=== PATIENT | male | born 1935 | race Caucasian/White ===

== ENCOUNTER 2020-04-14 15:36 | Inpatient (IN) | payer MEDICARE, SELFPAY ==
[2020-04-14] VITALS (8 sets, daily range): BP systolic 111–171; BP diastolic 57–104; PULSE 91–123; RESP 16–29; TEMP 36.3–36.5; O2SAT 95–100; BMI 26.4
--- NOTE | 2020-04-14 15:53 | XRR_ITS ---
PROCEDURE INFORMATION: Exam: XR Chest, 1 View Exam date and time: 04/14/2020 4:08 PM Age: 84 years old Clinical indication: Shortness of breath and other: Reduced breath sounds; Patient HX: SOB, abd pain TECHNIQUE: Imaging protocol: XR of the chest Views: 1 view. COMPARISON: CR Chest 1 [place] [id number] 11/08/2018 6:09 PM FINDINGS: Lungs: Granulomas at the left lung base. [place] granulomas in the left hilum. No focal airspace consolidation. Moderate emphysematous changes of the lungs. Pleural spaces: Unremarkable. No pleural effusion. No pneumothorax. Heart/Mediastinum: Prior CABG. Bones/joints: Bones are demineralized. XR/XR chest 1V portable [id number] IMPRESSION: 1. Negative for acute pulmonary disease. 2. No significant change from prior on 11/08/2018.
--- NOTE | 2020-04-14 15:56 | ECG_ITS ---
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 Measurements Intervals [place] Rate: 108 P: OR: QRS: 28 QRSD: 93 T: 90 QT: 394 QTc: 528 Interpretive Statements ATRIAL FIBRILLATION WITH RAPID VENTRICULAR RESPONSE INCOMPLETE RIGHT BUNDLE BRANCH BLOCK [90+ ms QRS DURATION, TERMINAL R IN V1/V2, 40+ ms S IN I/aVL/V4/V5/V6] Compared to ECG 11/09/2018 00:02:16 Incomplete right bundle-branch block now present Sinus rhythm no longer present T-wave abnormality still present Electronically Signed On 04-14-2020 17:52:44 CRUSHER OPERATOR by Aleksandr Dela Cruz M.D. [email or web address] [id number]
[2020-04-14 16:06] LABS: Basophils % 0.2 %; Hematocrit 34.2 % (42.0-52.0); Hemoglobin 11.1 g/dL (11.7-16.6); Lymphocytes # 1.2 10^3/uL (0.8-4.8); Lymphocytes % 9.5 %; Mean Corpuscular HGB Conc 32.5 g/dL (30.0-36.0); Mean Corpuscular Hemoglobin 29.5 pg (28.0-34.0); Mean Platelet Volume 9.9 fL (7.4-10.4); Monocytes # 0.7 10^3/uL (0.2-0.9); Neutrophils # 10.19 10^3/uL (1.8-7.7); Neutrophils % 83.2 %; Nucleated Red Blood Cells % 0 %; Platelet Count 317 10^3/cmm (130-400); Red Blood Count 3.76 10^6/uL (4.1-5.3); Red Cell Distribution Width 13.1 % (12.1-15.1); White Blood Count 12.2 10^3/uL (4.0-10.0)
[2020-04-14 16:10] LABS: ABG PCO2 26.4 mmHg (35-45); ABG PH Result 7.47 (7.35-7.45); Arterial Blood Gas Hematocrit 32.7 % (42-52); Base Excess ABG -3.7 mmol/L (-2.0-2.0); Blood Gas Allen Test Pos; Blood Gas Operator Identificat ED; Blood Gas Sample Site Radial, right; Blood Gas Sample Type Arterial; Oxygen Device ROOM AIR; PO2 ABG 94.4 mmHg (80.0-100.0)
[2020-04-14 16:17] LABS: INR 1.17 (0.8-1.2)
[2020-04-14 16:31] LABS: Troponin(5th) Baseline 56 ng/L (0-15)
[2020-04-14 16:41] LABS: Alanine Aminotransferase 19 U/L (0-41); Alkaline Phosphatase 160 IU/L (40-130); Anion Gap 22.5 (5-19); Aspartate Amino Transferase 18 U/L (0-40); Blood Urea Nitrogen 26 mg/dL (8-23); Calcium 8.9 mg/dL (8.5-10.5); Carbon Dioxide 19 mmol/L (22-29); Chloride 92 mmol/L (98-107); Globulin 4.6 g/dL (1.3-4.6); Glucose 484 mg/dL (65-115); Lipase 11 U/L (13-60); NT Pro B Type Natriuretic Pept 1238 pg/mL (0-450); Osmolality Calculated 292 mOsm/kg (285-295); Potassium 5.5 mmol/L (3.5-5.1); Sodium 128 mmol/L (136-145); Total Bilirubin 0.5 mg/dL (0.15-1.2); Total Protein 7.6 g/dL (6.6-8.7)
[2020-04-14] MEDS: piperacillin-tazobactam 3.375 GM in sodium chloride 0.9% (plus) 50 ML IV (16:44)
[2020-04-14] MEDS: vancomycin 1,000 MG in sodium chloride 0.9% 250 ML 250 MG IV (16:44)
[2020-04-14] MEDS: sodium chloride 0.9% 1,000 ML 999 ML IV (16:45)
[2020-04-14] MEDS: insulin regular-human 100 units/1 mL 10 UNIT IVP (16:45)
--- NOTE | 2020-04-14 16:46 | CTR_ITS ---
PROCEDURE INFORMATION: Exam: CT Abdomen And Pelvis With Contrast Exam date and time: 04/14/2020 4:53 PM Age: 84 years old Clinical indication: Constipation; Prior surgery; Additional info: Abdominal pain TECHNIQUE: Imaging protocol: Computed tomography of the abdomen and pelvis with contrast. Radiation optimization: All CT scans at this facility use at least one of these dose optimization techniques: automated exposure control; mA and/or kV adjustment per patient size (includes targeted exams where dose is matched to clinical indication); or iterative reconstruction. Contrast material: VISI 320; Contrast volume: 95 ml; Contrast route: INTRAVENOUS (IV); COMPARISON: US Abdomen* [id number] 04/29/2017 8:40 AM RADIATION DOSE METRICS: Total DLP (mGy-cm): 605.18 FINDINGS: Lungs: Densely calcified granuloma in the anterolateral left lower lobe. Lung bases otherwise clear. Liver: Normal. No mass. Gallbladder and bile ducts: Cholecystectomy. Nondilated biliary system. Pancreas: Atrophy a pancreatic parenchyma. No focal lesion. Spleen: Granulomas in the spleen. No splenomegaly. Adrenal glands: Normal. No mass. Kidneys and ureters: Atrophic renal parenchyma. No focal lesion. No hydronephrosis. No renal stones. Stomach and bowel: Moderate fecal volume. No focal inflammation of bowel loops or abdominal mesentery. No bowel wall pneumatosis. Appendix: No evidence of appendicitis. Intraperitoneal space: Negative for intraperitoneal fluid collection. Negative for pneumoperitoneum. Vasculature: Scattered [id number] severity calcified atherosclerotic plaque of arterial system. No aneurysm. No arterial occlusion. No active bleeding. Lymph nodes: Unremarkable. No enlarged lymph nodes. Urinary bladder: No thickening of the bladder wall. Reproductive: Mild to moderate prostate gland hypertrophy. Bones/joints: Median sternotomy noted. Arthritis in the lumbar spine. No acute fractures. No aggressive bone lesion. Osseous alignment is unremarkable. Soft tissues: Lumbar paraspinal muscles are symmetric. Ventral abdominal wall intact. CT/CT abdomen pelvis w con* [id number] IMPRESSION: No convincing CT scan evidence of acute pathology in the abdomen or pelvis. Radiation Dose CTDIVOL = (mGy): DLP = 605.18 (mGy-cm)
[2020-04-14 16:59] LABS: Lactate (Lactic Acid level) 4.3 mmol/L (0.5-2.2)
[2020-04-14] MEDS: iodixanol 320 mg/mL 100mL Btl IV (17:13)
--- NOTE | 2020-04-14 17:13 | XRR_ITS ---
PROCEDURE INFORMATION: Exam: XR Right Foot Exam date and time: 04/14/2020 5:30 PM Age: 84 years old Clinical indication: Pain; Foot; Right; Additional info: Osteomyelitis? TECHNIQUE: Imaging protocol: XR Right foot. Views: 1 or 2 views. COMPARISON: CR Foot 3 views, RIGHT* [id number] 10/08/2016 1:07 PM FINDINGS: Bones/joints: There is either erosion or most likely postsurgical change in the distal aspect of the 1st metatarsal bone. Amputation of the 2nd digit is apparent as well. Bones are diffusely demineralized. No acute fractures. Joint space alignments are intact. Mild osteophytic spurring between tarsal bones. Soft tissues: Soft tissues are thickened are swollen over the distal aspect of the forefoot medially. Soft tissue calcifications along the course of the plantar fascia aponeurosis. Other findings: Scattered arterial wall calcification. XR/XR foot RT 2V [id number] IMPRESSION: There is no definitive evidence of osteomyelitis in the right foot, however given the substantial irregularity of the distal margin of the remaining 1st metatarsal the diagnosis is difficult to confidently exclude. MRI would provide greater sensitivity.
[2020-04-14 17:18] LABS: Troponin 5 2HR 48.54 ng/L (0-15)
[2020-04-14 17:20] LABS: Troponin 5 2HR Delta -7.46 ABS# (0-10)
--- NOTE | 2020-04-14 17:56 | ECG_ITS ---
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 Measurements Intervals [place] Rate: 90 P: [place]: QRS: 21 QRSD: 92 T: -68 QT: 385 QTc: 473 Interpretive Statements ATRIAL FIBRILLATION INCOMPLETE RIGHT BUNDLE BRANCH BLOCK [90+ ms QRS DURATION, TERMINAL R IN V1/V2, 40+ ms S IN I/aVL/V4/V5/V6] MODERATE T-WAVE ABNORMALITY, CONSIDER INFERIOR ISCHEMIA [-0.1+ mV T WAVE IN II/aVF] Compared to ECG 04/14/2020 16:11:49 T-wave abnormality now present Possible ischemia now present Electronically Signed On 04-14-2020 18:39:25 BENDER HELPER by Aleksandr Dela Cruz M.D. [id number]
[2020-04-14] MEDS: morphine 4 mg/mL SDV 1 mL IVP (18:24)
--- NOTE | 2020-04-14 21:05 | W.ED.ABDPA2 ---
HPI - Abdominal Pain General: Chief Complaint: Abdominal Pain Stated Complaint: ABDOMINAL PAIN/ CONSTIPATION Time Seen by Provider: 04/14/20 15:48 History of Present Illness: HPI narrative: The patient is an 84-year-old male with past medical history sacral and right foot ulcers. He was brought to the ER for abdominal pain and thought to have some sort of an obstruction as he has not had a bowel movement in 5 days and today he had 2 small nuggets past. The patient is alert and able to answer most questions. He does have a right great toe amputation with ulcer and purulent discharge coming out of it. He was recently discharged from another hospital after an inpatient treatment for the foot infection. MD elicited complaint: abdominal pain Pertinent past history: constipation Onset (ago): day(s) (5) Associated Symptoms: Denies diarrhea, nausea and vomiting Review of Systems General: Reports: 10 or more systems reviewed and unremarkable except in HPI and below Const: Denies: fatigue Eyes: Denies: change in vision, blurry vision or eye redness ENMT: Denies: throat pain, swelling of lips/tongue, ear or mastoid pain or nasal congestion Card: Denies: chest pain, palpitations, irregular heart rhythm, edema, dyspnea on exertion or orthopnea Resp: Denies: dyspnea, productive cough or non-productive cough GI: Reports: abdominal pain; Denies: nausea, vomiting or diarrhea : Denies: flank pain, urinary frequency or urinary urgency Musc: Reports: extremity pain (Right great toe infection with drainage); Denies: neck pain, back pain, joint pain, joint redness, limited range of motion or muscle weakness Skin/Breast: Denies: rash, pruritus, erythema, skin pain or skin tenderness Neuro: Denies: headache(s), numbness in extremities, weakness in extremities, sensory changes, difficulty walking, dizziness, confusion or Slurred speech present Psych: Denies: anxiety or depression Endo: Denies: polyuria All/Imm: Denies: urticaria, throat swelling or tongue swelling PFSH ED PFSH: Medical History (Updated 04/15/20 @ 00:09 by Jabier Allen MD) Blind left eye BPH (benign prostatic hyperplasia) CAD (coronary artery disease) Chronic kidney disease Diabetes mellitus, type II Frequent falls History of stroke Hypertension Osteoarthritis Peripheral arterial disease Surgical History (Updated 04/14/20 @ 22:16 by Galina Hidalgo MD) 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 History of appendectomy History of cholecystectomy History of eye surgery History of partial ray amputation of second toe of right foot unknown if partial or complete, done in [place] possibly sometime recently though date unknown as of 04/14/20 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, Dr De Paz Family History (Updated 04/14/20 @ 22:17 by Galina Hidalgo MD) Other CAD (coronary artery disease) Diabetes Social History (Updated 04/14/20 @ 22:17 by Galina Hidalgo MD) Smoking and tobacco status: never smoked Alcohol intake: never Substance/Drug Use: never Household members: spouse and children Marital status: Physical Exam Const: COMMON NORMALS: no acute distress, average body habitus, patient oriented x3, no limitations, healthy appearing, alert and well nourished GENERAL APPEARANCE: cooperative, comfortable, well kempt and well developed ORIENTATION/CONSCIOUSNESS: Yes awake, Yes oriented to person, Yes oriented to place and Yes oriented to time HENMT: COMMON NORMALS: normocephalic, external ears normal and Normal external nose present HEAD & SCALP: normal to inspection and normocephalic NOSE: Normal external nose present EXTERNAL EAR: Yes external ears normal MOUTH: Normal oral and palatal mucosa present THROAT: posterior oropharynx normal Eye: COMMON NORMALS: Equal, round and reactive pupils present and EOMs intact bilaterally GENERAL EYE: appearance normal, both eyes and all related structures PUPIL: Yes Equal, round and reactive pupils present Neck/C-Spine: COMMON NORMALS: full ROM, no lymphadenopathy, no meningeal signs and no JVD GENERAL: Yes normal visual inspection Lymph: LYMPHATIC: no lymphadenopathy noted Chest: COMMONS NORMALS: normal inspection of the chest and normal palpation of entire chest wall Resp: COMMON NORMALS: normal respiratory effort, No retractions, No use of accessory muscles, clear to auscultation bilaterally and percussion normal EFFORT & INSPECTION: Yes able to speak in complete sentences AUSCULTATION: clear to auscultation bilaterally PERCUSSION: percussion normal Cardio: COMMON NORMALS: no JVD, regular rate, regular rhythm, S1 normal heart sound present, S2 normal heart sound present and Peripheral pulses 2+ throughout RATE: regular rate RHYTHM: regular rhythm HEART SOUNDS: S1 normal heart sound present and S2 normal heart sound present PERIPHERAL PULSES: Peripheral pulses 2+ throughout GI: COMMON NORMALS: Normal to inspection, nondistended, normoactive bowel sounds present, Soft to palpation, non-tender and no masses INSPECTION: Yes normal to inspection PALPATION: Yes Soft to palpation and Yes Tenderness to palpation present (GI) (Diffuse. No rebound tenderness) : COMMON NORMALS: Yes no CVA tenderness BLADDER/KIDNEY EXAM: Yes no CVA tenderness Back/Pelvis: COMMON NORMALS: no CVA tenderness, thoracic and lumbar spine normal to inspection, no thoracic nor lumbar tenderness and thoraco-lumbar ROM normal Extremity: COMMON NORMALS: full ROM, capillary refill normal, no joint enlargement and no pedal edema NARRATIVE EXTREMITY EXAM: Right great toe amputation. In between the cleft of first and second toe there is an ulcer there with purulent discharge and it is tender to the area. GENERAL: Yes normal exam except as noted Neuro: COMMON NORMALS: patient oriented x3, CN's II-XII intact bilaterally, moves all extremities, no focal motor deficits, no sensory deficits noted and gait normal SENSORIUM/ORIENTATION: Yes alert, Yes oriented to person, Yes oriented to place and Yes oriented to time MENINGEAL SIGNS: Yes no meningeal signs Psych: COMMON NORMALS: mental status grossly normal, Normal thought process present, cooperative, normal affect and speech normal APPEARANCE: Yes well kempt ATTITUDE: Yes calm SPEECH: Yes normal speech THOUGHT PROCESS: Normal thought process present Skin: COMMON NORMALS: no rashes or lesions noted GENERAL SKIN EXAM: no rashes or lesions noted Course Vital Signs: Vital signs: Vital Signs Temperature 97.6 F 04/14/20 23:50 Pulse Rate 111 H 04/14/20 23:50 Respiratory Rate 18 04/14/20 23:50 Blood Pressure 168/81 04/14/20 23:50 Pulse Oximetry 97 04/14/20 23:50 MDM - Abdominal Pain MDM Narrative: Medical decision making narrative: The patient came in with abdominal pain. Abdominal pelvic CT is normal but he does have other abnormalities. White count 12.2, lactic acid 4.3. He is likely septic from the purulent discharge ulcer on his right great toe cleft. He had recently been treated for this and discharged to another facility. He also had high glucose during his stay and was given insulin and fluids for that with improvement of his glucose. He also has mild hyperkalemia which the insulin should assist in helping. Also chronic kidney disease. I discussed with the hospitalist who accepts him to the floor. He was given Vanco and Zosyn in the ER. Lab Data: Labs: Lab Results 04/14/20 04/14/20 04/14/20 Range/Units 15:08 15:08 15:08 WBC 12.2 H (4.0-10.0) 10^3/ uL RBC 3.76 L (4.1-5.3) 10^6/u L Hgb 11.1 L (11.7-16.6) g/dL Hct 34.2 L (42.0-52.0) % MCV 91.0 (80-94) fL MCH 29.5 (28.0-34.0) pg MCHC 32.5 (30.0-36.0) g/dL RDW 13.1 (12.1-15.1) % Plt Count 317 (130-400) 10^3/c mm MPV 9.9 (7.4-10.4) fL Neut % (Auto) 83.2 % Lymph % (Auto) 9.5 % [place] % (Auto) 6.0 % Eos % (Auto) 0.0 % Baso % (Auto) 0.2 % Neut # (Auto) 10.19 H (1.8-7.7) 10^3/u L Lymph # (Auto) 1.2 (0.8-4.8) 10^3/u L [place] # (Auto) 0.7 (0.2-0.9) 10^3/u L Eos # (Auto) 0.0 (0.0-0.8) 10^3/u L Baso # (Auto) 0.0 (0.0-0.1) 10^3/u L Nucleated RBC % (a uto) 0 % Nucleated RBCs # 0.0 /100WBC PT 15.30 H (12.1-14.9) SECO NDS INR 1.17 (0.8-1.2) Specimen Type Sample Site ABG pH (7.35-7.45) ABG pCO2 (35-45) mmHg ABG pO2 (80.0-100.0) mmH g ABG HCO3 (22-26) mmol/L ABG Base Excess (-2.0-2.0) mmol/ L Manuel Test Hematocrit (42-52) % O2 Delivery Device FiO2 % Calender Worker Helper ID Sodium 128 L (136-145) mmol/L Potassium 5.5 H (3.5-5.1) mmol/L Chloride 92 L (98-107) mmol/L Carbon Dioxide 19 L (22-29) mmol/L Anion Gap 22.5 H (5-19) BUN 26 H (8-23) mg/dL Creatinine 1.4 H (0.7-1.2) mg/dL GFR Calculation Not Reportable Glucose 484 H (65-115) mg/dL Calculated Osmolal ity 292 (285-295) mOsm/k g Lactate (0.5-2.2) mmol/L Calcium 8.9 (8.5-10.5) mg/dL Total Bilirubin 0.5 (0.15-1.2) mg/dL AST 18 (0-40) U/L ALT 19 (0-41) U/L Alkaline Phosphata se 160 H (40-130) IU/L Troponin T Baselin e (0-15) ng/L Troponin T 120 Min ho-chunk (0-15) ng/L Delta Troponin T (0-10) ABS# NT-Pro-B Natriuret Pep 1238 H (0-450) pg/mL Total Protein 7.6 (6.6-8.7) g/dL Albumin 3.0 L (3.5-5.2) g/dL Globulin 4.6 (1.3-4.6) g/dL Lipase 11 L (13-60) U/L 04/14/20 04/14/20 04/14/20 Range/Units 15:08 16:00 16:25 WBC (4.0-10.0) 10^3/ uL RBC (4.1-5.3) 10^6/u L Hgb (11.7-16.6) g/dL Hct (42.0-52.0) % MCV (80-94) fL MCH (28.0-34.0) pg MCHC (30.0-36.0) g/dL RDW (12.1-15.1) % Plt Count (130-400) 10^3/c mm MPV (7.4-10.4) fL Neut % (Auto) % Lymph % (Auto) % [place] % (Auto) % Eos % (Auto) % Baso % (Auto) % Neut # (Auto) (1.8-7.7) 10^3/u L Lymph # (Auto) (0.8-4.8) 10^3/u L [place] # (Auto) (0.2-0.9) 10^3/u L Eos # (Auto) (0.0-0.8) 10^3/u L Baso # (Auto) (0.0-0.1) 10^3/u L Nucleated RBC % (a uto) % Nucleated RBCs # /100WBC PT (12.1-14.9) SECO NDS INR (0.8-1.2) Specimen Type Arterial Sample Site Radial, right ABG pH 7.47 H (7.35-7.45) ABG pCO2 26.4 L (35-45) mmHg ABG pO2 94.4 (80.0-100.0) mmH g ABG HCO3 19.0 L (22-26) mmol/L ABG Base Excess -3.7 L (-2.0-2.0) mmol/ L Manuel Test Pos Hematocrit 32.7 L (42-52) % O2 Delivery Device Room air FiO2 21.0 % Calender Worker Helper ID Ed Sodium (136-145) mmol/L Potassium (3.5-5.1) mmol/L Chloride (98-107) mmol/L Carbon Dioxide (22-29) mmol/L Anion Gap (5-19) BUN (8-23) mg/dL Creatinine (0.7-1.2) mg/dL GFR Calculation Glucose (65-115) mg/dL Calculated Osmolal ity (285-295) mOsm/k g Lactate 4.3 H* (0.5-2.2) mmol/L Calcium (8.5-10.5) mg/dL Total Bilirubin (0.15-1.2) mg/dL AST (0-40) U/L ALT (0-41) U/L Alkaline Phosphata se (40-130) IU/L Troponin T Baselin e 56 H (0-15) ng/L Troponin T 120 Min ho-chunk (0-15) ng/L Delta Troponin T (0-10) ABS# NT-Pro-B Natriuret Pep (0-450) pg/mL Total Protein (6.6-8.7) g/dL Albumin (3.5-5.2) g/dL Globulin (1.3-4.6) g/dL Lipase (13-60) U/L 04/14/20 Range/Units 16:55 WBC (4.0-10.0) 10^3/ uL RBC (4.1-5.3) 10^6/u L Hgb (11.7-16.6) g/dL Hct (42.0-52.0) % MCV (80-94) fL MCH (28.0-34.0) pg MCHC (30.0-36.0) g/dL RDW (12.1-15.1) % Plt Count (130-400) 10^3/c mm MPV (7.4-10.4) fL Neut % (Auto) % Lymph % (Auto) % [place] % (Auto) % Eos % (Auto) % Baso % (Auto) % Neut # (Auto) (1.8-7.7) 10^3/u L Lymph # (Auto) (0.8-4.8) 10^3/u L [place] # (Auto) (0.2-0.9) 10^3/u L Eos # (Auto) (0.0-0.8) 10^3/u L Baso # (Auto) (0.0-0.1) 10^3/u L Nucleated RBC % (a uto) % Nucleated RBCs # /100WBC PT (12.1-14.9) SECO NDS INR (0.8-1.2) Specimen Type Sample Site ABG pH (7.35-7.45) ABG pCO2 (35-45) mmHg ABG pO2 (80.0-100.0) mmH g ABG HCO3 (22-26) mmol/L ABG Base Excess (-2.0-2.0) mmol/ L Manuel Test Hematocrit (42-52) % O2 Delivery Device FiO2 % Calender Worker Helper ID Sodium (136-145) mmol/L Potassium (3.5-5.1) mmol/L Chloride (98-107) mmol/L Carbon Dioxide (22-29) mmol/L Anion Gap (5-19) BUN (8-23) mg/dL Creatinine (0.7-1.2) mg/dL GFR Calculation Glucose (65-115) mg/dL Calculated Osmolal ity (285-295) mOsm/k g Lactate (0.5-2.2) mmol/L Calcium (8.5-10.5) mg/dL Total Bilirubin (0.15-1.2) mg/dL AST (0-40) U/L ALT (0-41) U/L Alkaline Phosphata se (40-130) IU/L Troponin T Baselin e (0-15) ng/L Troponin T 120 Min ho-chunk 48.54 H (0-15) ng/L Delta Troponin T -7.46 L (0-10) ABS# NT-Pro-B Natriuret Pep (0-450) pg/mL Total Protein (6.6-8.7) g/dL Albumin (3.5-5.2) g/dL Globulin (1.3-4.6) g/dL Lipase (13-60) U/L Discharge Plan Discharge Patient Disposition: Admitted As Inpatient Admit Provider: Galina Hidalgo Clinical Impression: Sepsis, Diabetes mellitus, type II, Right foot ulcer, Acute hyperglycemia Condition: Stable Coding Level of Care Code ED Parts Data Writer for Cliff Noyola
--- NOTE | 2020-04-14 21:40 | PM.HP ---
Providers/Chief Complaint Admitting Physician: Galina Hidalgo MD Primary Care Provider: Carlos Nagy MD Chief Complaint: ABDOMINAL PAIN/ CONSTIPATION History of Present Illness Frank Espinal is a 84 year old male presenting with abdominal pain and constipation. He describes recently being hospitalized I think at [facility] in [place]. Sounds like he had amputation of his second toe. Looking at the wound it actually does not look that recent but it certainly could be. It is difficult to get timeframes of events from him though he does seem to recall details. He describes having issues with constipation then while in the hospital that was difficult to manage. He states he has not had a bowel movement since he got home from the hospital. His family has given him 3 enemas and he has been taking some oral laxatives as well. He has had increased abdominal discomfort and some episodes of vomiting related to this. He has had some pain in his foot but states it is to be expected. He has known peripheral arterial disease. He had had a previous right great toe amputation for diabetic foot ulcer. He does not see well so he cannot tell me if current findings on the foot or how they have been. He had work-up in the emergency room revealing a white count of 12,000, hyperglycemia in a patient with known diabetes, has an elevated lactic acid at 4.3. He also had an elevated BNP. Not hypotensive nor tachycardic. He denied any fevers. Chest x-ray as well as CT of the abdomen and pelvis not show any acute abnormalities. Imaging of the right foot showed findings of inflammation but no evidence of osteomyelitis. He received some antibiotics for presumptive infection in the right foot. He also received IV fluids and 1 dose of pain medication. He is being admitted for further evaluation and treatment. Medical records have been requested from [facility] but not obtained thus far. Is that his primary care provider is who ever took over for Dr. Nagy. 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) ENMT: Reports: dry mouth; Denies: throat pain, odynophagia, oral sores or nasal congestion Card: Denies: chest pain, palpitations, edema or orthopnea Resp: Denies: dyspnea, productive cough or non-productive cough GI: Reports: abdominal pain, nausea, vomiting and constipation; Denies: diarrhea : Reports: urinary hesitancy and difficulty starting urination Musc: Reports: extremity pain (Right foot) and other (Arthralgias); Denies: extremity swelling Skin/Breast: Reports: lesions (Right foot); Denies: rash or pruritus Neuro: Reports: numbness in extremities, weakness in extremities, difficulty walking and frequent falls (Had a fall in last hospital); Denies: headache(s) Psych: Denies: anxiety or depression Shane/Lymph: Denies: easy bruising or easy bleeding Medications/Allergies Home Medications Medication Instructions Recorded Confirmed Last Taken Type amlodipine 10 mg PO DAILY 04/14/20 04/14/20 Unknown History insulin regular human [Humulin R 30 unit SUBCUT BID 04/14/20 04/14/20 Unknown History Regular U-100 Insuln] losartan 25 mg PO DAILY 04/14/20 04/14/20 Unknown History tamsulosin 0.4 mg PO BID 04/14/20 04/14/20 Unknown History Allergies Allergy/AdvReac Type Severity Reaction Status Date / Time pneumococcal vaccine Allergy ALGY-Hives Verified 04/14/20 15:55 PFSH Acute PFSH: Medical History (Updated 04/15/20 @ 07:28 by Galina Hidalgo MD) Blind left eye BPH (benign prostatic hyperplasia) CAD (coronary artery disease) Chronic kidney disease Diabetes mellitus, type II Frequent falls History of stroke Hypertension Osteoarthritis Peripheral arterial disease Surgical History (Updated 04/14/20 @ 22:16 by Galina Hidalgo MD) 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 History of appendectomy History of cholecystectomy History of eye surgery History of partial ray amputation of second toe of right foot unknown if partial or complete, done in [place] possibly sometime recently though date unknown as of 04/14/20 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, Dr De Paz Family History (Updated 04/14/20 @ 22:17 by Galina Hidalgo MD) Other CAD (coronary artery disease) Diabetes Social History (Updated 04/14/20 @ 22:17 by Galina Hidalgo MD) Smoking and tobacco status: never smoked Alcohol intake: never Substance/Drug Use: never Household members: spouse and children Marital status: Vitals/I&O/Wt Last Vital Signs Temp 97.7 F 04/14/20 20:21 Pulse 123 H 04/14/20 20:21 Resp 16 04/14/20 20:21 BP 111/64 04/14/20 20:21 Pulse Ox 99 04/14/20 20:21 04/14/20 04/14/20 04/14/20 06:59 14:59 22:59 Intake Total 1300 / 1300 Balance 1300 / 1300 Weight last 48 hrs Weight 86.183 kg Physical Exam Const: OTHER: Alert, oriented to person, generally to place and situation although gets confused with whether he is at [facility] or [facility] is to time references, cooperative, pleasant HENMT: OTHER: Normocephalic atraumatic, dry mucous membranes, fair dentition Eye: OTHER: Left eye with cloudy cornea/no vision, right pupil reactive Neck/C-Spine: OTHER: Supple Resp: OTHER: Clear to auscultation bilaterally, no rales, rhonchi or wheezes noted, no accessory muscle use noted Cardio: OTHER: Regular rate and rhythm, no murmurs, 1+ pulses both radial and dorsalis pedis palpable GI: OTHER: Abdomen soft, mild diffuse tenderness but no rebound or guarding, positive bowel sounds : OTHER: Normal uncircumcised penis, some erythema in the scrotum Extremity: NARRATIVE EXTREMITY EXAM: Right lower extremity with swelling noted to the forefoot. Patient has had prior great and second toe amputations. Second toe amputation site appears to still be open with drainage of a mixture of serous and purulent appearing fluid although it does not have an odor. There is only minimal surrounding erythema around the opening. There are ecchymotic areas extending up the medial side of the foot on the anterior surface. There is bruising across the forefoot. I do not appreciate any large areas of fluctuance and pressure on the foot does not cause an increase in exudate from the open wound. On the lateral side of the right foot there is approximately 5 to 6 inches of ecchymoses with a central dry scab. There is some bruising around this area as well. No red streaks extend beyond these 2 areas nor beyond the ankle. On the bottom of the foot there is some erythema and additional ecchymoses. On the left foot there is an old scabbed sore at the base of the great toe. No pitting edema to either lower extremity beyond the forefoot area. No calf pain or significant asymmetry. Some muscle wasting noted in all extremities Neuro: OTHER: Face symmetric, speech clear, moves all extremities but generally weak, thus due to report of him being unable to ambulate Psych: OTHER: Normal affect, knows a fair amount of his history but I suspect that there are parts that he has not recalled Skin: OTHER: Skin is generally dry, findings on the feet as noted above, keloid formation with some surrounding erythema at his sternal scar noted Data : 04/14/20 15:08 04/15/20 04:30 Other Labs: Laboratory Last Values WBC 12.2 10^3/uL (4.0-10.0) H 04/14/20 15:08 RBC 3.76 10^6/uL (4.1-5.3) L 04/14/20 15:08 Hgb 11.1 g/dL (11.7-16.6) L 04/14/20 15:08 Hct 34.2 % (42.0-52.0) L 04/14/20 15:08 MCV 91.0 fL (80-94) 04/14/20 15:08 MCH 29.5 pg (28.0-34.0) 04/14/20 15:08 MCHC 32.5 g/dL (30.0-36.0) 04/14/20 15:08 RDW 13.1 % (12.1-15.1) 04/14/20 15:08 Plt Count 317 10^3/cmm (130-400) 04/14/20 15:08 MPV 9.9 fL (7.4-10.4) 04/14/20 15:08 Neut % (Auto) 83.2 % 04/14/20 15:08 Lymph % (Auto) 9.5 % 04/14/20 15:08 Placer % (Auto) 6.0 % 04/14/20 15:08 Eos % (Auto) 0.0 % 04/14/20 15:08 Baso % (Auto) 0.2 % 04/14/20 15:08 Neut # (Auto) 10.19 10^3/uL (1.8-7.7) H 04/14/20 15:08 Lymph # (Auto) 1.2 10^3/uL (0.8-4.8) 04/14/20 15:08 Placer # (Auto) 0.7 10^3/uL (0.2-0.9) 04/14/20 15:08 Eos # (Auto) 0.0 10^3/uL (0.0-0.8) 04/14/20 15:08 Baso # (Auto) 0.0 10^3/uL (0.0-0.1) 04/14/20 15:08 Nucleated RBC % (auto) 0 % 04/14/20 15:08 Nucleated RBCs # 0.0 /100WBC 04/14/20 15:08 PT 15.30 SECONDS (12.1-14.9) H 04/14/20 15:08 INR 1.17 (0.8-1.2) 04/14/20 15:08 Specimen Type Arterial 04/14/20 16:00 Sample Site Radial, right 04/14/20 16:00 ABG pH 7.47 (7.35-7.45) H 04/14/20 16:00 ABG pCO2 26.4 mmHg (35-45) L 04/14/20 16:00 ABG pO2 94.4 mmHg (80.0-100.0) 04/14/20 16:00 ABG HCO3 19.0 mmol/L (22-26) L 04/14/20 16:00 ABG Base Excess -3.7 mmol/L (-2.0-2.0) L 04/14/20 16:00 Manuel Test Pos 04/14/20 16:00 Hematocrit 32.7 % (42-52) L 04/14/20 16:00 O2 Delivery Device Room air 04/14/20 16:00 FiO2 21.0 % 04/14/20 16:00 Tool Designer Apprentice ID Ed 04/14/20 16:00 Sodium 128 mmol/L (136-145) L 04/14/20 15:08 Potassium 5.5 mmol/L (3.5-5.1) H 04/14/20 15:08 Chloride 92 mmol/L (98-107) L 04/14/20 15:08 Carbon Dioxide 19 mmol/L (22-29) L 04/14/20 15:08 Anion Gap 22.5 (5-19) H 04/14/20 15:08 BUN 26 mg/dL (8-23) H 04/14/20 15:08 Creatinine 1.4 mg/dL (0.7-1.2) H 04/14/20 15:08 GFR Calculation Not Reportable 04/14/20 15:08 Glucose 484 mg/dL (65-115) H 04/14/20 15:08 Calculated Osmolality 292 mOsm/kg (285-295) 04/14/20 15:08 Lactate 4.3 mmol/L (0.5-2.2) H* 04/14/20 16:25 Calcium 8.9 mg/dL (8.5-10.5) 04/14/20 15:08 Total Bilirubin 0.5 mg/dL (0.15-1.2) 04/14/20 15:08 AST 18 U/L (0-40) 04/14/20 15:08 ALT 19 U/L (0-41) 04/14/20 15:08 Alkaline Phosphatase 160 IU/L (40-130) H 04/14/20 15:08 Troponin T Baseline 56 ng/L (0-15) H 04/14/20 15:08 Troponin T 120 Minute 48.54 ng/L (0-15) H 04/14/20 16:55 Delta Troponin T -7.46 ABS# (0-10) L 04/14/20 16:55 NT-Pro-B Natriuret Pep 1238 pg/mL (0-450) H 04/14/20 15:08 Total Protein 7.6 g/dL (6.6-8.7) 04/14/20 15:08 Albumin 3.0 g/dL (3.5-5.2) L 04/14/20 15:08 Globulin 4.6 g/dL (1.3-4.6) 04/14/20 15:08 Lipase 11 U/L (13-60) L 04/14/20 15:08 Micro: Microbiology 04/14/20 16:28 Blood Culture - Preliminary Blood SPECIMEN COLLECTED 04/14/20 16:25 Blood Culture - Preliminary Blood SPECIMEN COLLECTED CT Abd/Pel: Radiologist's impression: FINDINGS: Lungs: Densely calcified granuloma in the anterolateral left lower lobe. Lung bases otherwise clear. Liver: Normal. No mass. Gallbladder and bile ducts: Cholecystectomy. Nondilated biliary system. Pancreas: Atrophy a pancreatic parenchyma. No focal lesion. Spleen: Granulomas in the spleen. No splenomegaly. Adrenal glands: Normal. No mass. Kidneys and ureters: Atrophic renal parenchyma. No focal lesion. No hydronephrosis. No renal stones. Stomach and bowel: Moderate fecal volume. No focal inflammation of bowel loops or abdominal mesentery. No bowel wall pneumatosis. Appendix: No evidence of appendicitis. Intraperitoneal space: Negative for intraperitoneal fluid collection. Negative for pneumoperitoneum. Vasculature: Scattered [id number] severity calcified atherosclerotic plaque of arterial system. No aneurysm. No arterial occlusion. No active bleeding. Lymph nodes: Unremarkable. No enlarged lymph nodes. Urinary bladder: No thickening of the bladder wall. Reproductive: Mild to moderate prostate gland hypertrophy. Bones/joints: Median sternotomy noted. Arthritis in the lumbar spine. No acute fractures. No aggressive bone lesion. Osseous alignment is unremarkable. Soft tissues: Lumbar paraspinal muscles are symmetric. Ventral abdominal wall intact. CT/CT abdomen pelvis w con* [id number] IMPRESSION: No convincing CT scan evidence of acute pathology in the abdomen or pelvis. foot xray right: Radiologist's impression: FINDINGS: Bones/joints: There is either erosion or most likely postsurgical change in the distal aspect of the 1st metatarsal bone. Amputation of the 2nd digit is apparent as well. Bones are diffusely demineralized. No acute fractures. Joint space alignments are intact. Mild osteophytic spurring between tarsal bones. Soft tissues: Soft tissues are thickened are swollen over the distal aspect of the forefoot medially. Soft tissue calcifications along the course of the plantar fascia aponeurosis. Other findings: Scattered arterial wall calcification. XR/XR foot RT 2V [id number] IMPRESSION: There is no definitive evidence of osteomyelitis in the right foot, however given the substantial irregularity of the distal margin of the remaining 1st metatarsal the diagnosis is difficult to confidently exclude. MRI would provide greater sensitivity. CXR: Radiologist's impression: FINDINGS: Lungs: Granulomas at the left lung base. New Lyme granulomas in the left hilum. No focal airspace consolidation. Moderate emphysematous changes of the lungs. Pleural spaces: Unremarkable. No pleural effusion. No pneumothorax. Heart/Mediastinum: Prior CABG. Bones/joints: Bones are demineralized. XR/XR chest 1V portable [id number] IMPRESSION: 1. Negative for acute pulmonary disease. 2. No significant change from prior on 11/08/2018. A&P Assessment and plan (1) Constipation: This is at least patient's primary complaint. I have a little bit of concern about possibility of mesenteric ischemia as a cause of his GI symptoms given his history but in talking with him current presentation is not dissimilar to events previously experienced. Pain is not severe. Status: Acute Qualifiers: Constipation type: unspecified constipation type Qualified Code(s): K59.00 - Constipation, unspecified (2) Right foot ulcer: From what I can gather patient has had chronic problems with his right foot related to diabetes and peripheral arterial disease. He is now status post second amputation of a toe. In addition to continued drainage from the surgical opening he has wound to the lateral portion of the foot. There are some areas of discoloration concerning for progressively worsening vascular disease but dorsalis pedis pulses actually palpable and capillary refill at remaining toes is intact. Status: Acute Qualifiers: Non-pressure ulcer stage: unspecified non-pressure ulcer stage Qualified Code(s): L97.519 - Non-pressure chronic ulcer of other part of right foot with unspecified severity (3) Elevated lactic acid level: Currently of unclear significance Status: Acute (4) Peripheral arterial disease: Known diagnosis Status: Chronic (5) Diabetes mellitus, type II: On regular insulin therapy presenting currently with hyperglycemia Status: Chronic Qualifiers: Diabetes mellitus buttermaker helper insulin use: with buttermaker helper use Diabetes mellitus complication status: with kidney complications Diabetes mellitus complication detail: with chronic kidney disease Chronic kidney disease stage: stage 3 (moderate) Chronic kidney disease stage 3 subtype: stage 3a (GFR 45-59) Qualified Code(s): E11.21 - Type 2 diabetes mellitus with diabetic nephropathy; N18.31 - Chronic kidney disease, stage 3a; Z79.4 - meterman (current) use of insulin (6) Hypertension: Chronically on losartan Status: Chronic Qualifiers: Hypertension type: essential hypertension Qualified Code(s): I10 - Essential (primary) hypertension (7) BPH (benign prostatic hyperplasia): Chronically on Flomax Status: Chronic Qualifiers: Lower urinary tract symptom presence: symptoms present Lower urinary tract symptom detail: urinary hesitancy Qualified Code(s): N40.1 - Benign prostatic hyperplasia with lower urinary tract symptoms; R39.11 - Hesitancy of micturition (8) Frequent falls: Including falls while hospitalized recently Status: Chronic Additional A&P Information Coronary artery disease with prior bypass surgery Elevated BNP without acute symptoms suggestive of BNP Anemia, chronic, suspect due to chronic inflammation related to foot wounds Observation admission for now Laxatives, stool softeners, enema Have requested medical records from [facility] to get a better idea of what his foot wounds him look like and what surgery was recently done Depending on what those records show can consider arterial imaging studies but I strongly suspect he has had them somewhere recently Check sed rate and CRP Repeat lactic acid For now we will continue vancomycin and Zosyn ordered in emergency room Keep right foot elevated Short and long acting insulin IVFs, recheck electrolytes Check A1c F/U UA Continue home norvasc, losartan, flomax Fall precautions SQ heparin for DVT prophylaxis Supportive care otherwise We will ask group social worker to see as anticipate he has some home care needs potentially or may need other disposition plans based on some of my discussion He follows with wound care at [facility] but is indicated that he would like to come back to wound care here. Can look into options after getting a bit more information Based on discussion with the patient he appears to prefer full code but also mentions that he was sent home to . Have not been able to determine if he is talking about hospice care, being colloquial or what with these statements. Recommend clarifying code status with him further and ot with family when available. Full code for now. Attestations Medical Necessity Statement*: Anticipated stay currently less than 2 midnights given primary complaint of constipation and what is described as recent discharge from another hospital. I am not sure what his foot wounds look like at that time. As patient feels like if he could just have a bowel movement he would feel better we will see if we can achieve that and how he is doing at that time. Records have been requested to get a little bit more clarity on acuity of current events. 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 [employer] Diagnoses Constipation K59.00 Constipation type: unspecified constipation type Right foot ulcer L97.519 Non-pressure ulcer stage: unspecified non-pressure ulcer stage Elevated lactic acid level R79.89 Peripheral arterial disease I73.9 Diabetes mellitus, type II E11.21; N18.31; Z79.4 Diabetes mellitus penitentiary insulin use: with penitentiary use Diabetes mellitus complication status: with kidney complications Diabetes mellitus complication detail: with chronic kidney disease Chronic kidney disease stage: stage 3 (moderate) Chronic kidney disease stage 3 subtype: stage 3a (GFR 45-59) Hypertension I10 Hypertension type: essential hypertension BPH (benign prostatic hyperplasia) N40.1; R39.11 Lower urinary tract symptom presence: symptoms present Lower urinary tract symptom detail: urinary hesitancy Frequent falls R29.6
[2020-04-14 22:53] LABS: Add Urine Microscopic? YES; Bilirubin Urine Neg (Negative); Blood Urine Neg (Negative); Glucose Urine UA 4+ (Normal); Ketones Urine 1+ (Negative); Leukocyte Esterase Urine Negative (Negative); Nitrate Urine Negative (Negative); Protein Urine Trace (Negative); Urine Appearance Clear (CLEAR); Urine Color Straw (Yellow); Urobilinogen Urine Norm (Negative); pH Urine 5 (5-7)
[2020-04-14 22:54] LABS: Bacteria Urine TRACE /hpf; Mucus Urine TRACE /hpf; RBC Urine RARE /hpf (0-2); Squamous Epithelial Cell Urine 0-4 /hpf (0-5); WBC Urine RARE /hpf (0-5)
[2020-04-14 22:55] LABS: Add Urine Culture? No
[2020-04-14 23:25] LABS: Glucose Point of Care 465 mg/dL (70-110)
[2020-04-14] MEDS: heparin 5,000 unit/mL INJ 1 mL 5000 UNIT SUBCUT (23:25)
[2020-04-14] MEDS: bisacodyl 10 mg Supp PR (23:25)
[2020-04-15 04:00] VITALS: BP 157/77; PULSE 109; RESP 16; TEMP 36.4; O2SAT 99
--- NOTE | 2020-04-15 04:12 | PC.NURSE ---
almost as soon as the water reached the patient, it came right out. This nurse advanced the tube up to 12 inches and it would still come right out. What little stool did come out, was green and mucous.
--- NOTE | 2020-04-15 05:11 | PC.NURSE ---
Patient had voided threw the brief and soaked the bed.
[2020-04-15 05:31] LABS: Estmated Average Glucose 255; Hemoglobin A1C 10.5 % (4.0-6.0)
[2020-04-15 05:52] LABS: Blood Urea Nitrogen 23 mg/dL (8-23); Calcium 8.8 mg/dL (8.5-10.5); Carbon Dioxide 20 mmol/L (22-29); Chloride 99 mmol/L (98-107); Glucose 329 mg/dL (65-115); Osmolality Calculated 294 mOsm/kg (285-295); Phosphorus 3.1 mg/dL (2.5-4.5); Sodium 134 mmol/L (136-145)
[2020-04-15 05:59] LABS: Anion Gap 19.9 (5-19); Potassium 4.9 mmol/L (3.5-5.1)
[2020-04-15 07:18] LABS: Glucose Point of Care 334 mg/dL (70-110)
[2020-04-15 07:27] VITALS: BP 142/85; PULSE 108; RESP 18; TEMP 36.5; O2SAT 99
[2020-04-15 07:47] LABS: Basophils % 0.2 %; Eosinophils % 0.1 %; Hematocrit 30.2 % (42.0-52.0); Hemoglobin 10.1 g/dL (11.7-16.6); Mean Corpuscular HGB Conc 33.4 g/dL (30.0-36.0); Mean Corpuscular Hemoglobin 29.6 pg (28.0-34.0); Mean Corpuscular Volume 88.6 fL (80-94); Mean Platelet Volume 10.3 fL (7.4-10.4); Monocytes # 1.2 10^3/uL (0.2-0.9); Monocytes % 9.2 %; Neutrophils # 9.96 10^3/uL (1.8-7.7); Neutrophils % 74.8 %; Nucleated Red Blood Cells % 0 %; Platelet Count 321 10^3/cmm (130-400); Red Blood Count 3.41 10^6/uL (4.1-5.3); Red Cell Distribution Width 13.2 % (12.1-15.1); White Blood Count 13.3 10^3/uL (4.0-10.0)
[2020-04-15 07:55] LABS: C Reactive Protein 72.9 mg/L (0.0-4.9)
[2020-04-15] MEDS: amlodipine 10 mg Tablet PO (08:20)
[2020-04-15] MEDS: tamsulosin 0.4 mg Capsule PO ×2 (08:20→17:55)
[2020-04-15] MEDS: docusate sodium 100 mg Capsule 200 MG PO ×2 (08:20→17:55)
[2020-04-15] MEDS: bisacodyl 5 mg Tablet 10 MG PO (08:20)
[2020-04-15] MEDS: insulin glargine 100 units/1 mL 5 UNIT SUBCUT ×2 (08:21→20:33)
[2020-04-15] MEDS: losartan 50 mg Tablet 25 MG PO (08:22)
[2020-04-15 09:07] LABS: Erythrocyte Sedimentation Rate 105 mm/hr (0-10)
[2020-04-15 09:39] LABS: Lactate (Lactic Acid level) 1.8 mmol/L (0.5-2.2)
[2020-04-15 11:25] VITALS: BP 151/73; PULSE 100; RESP 17; TEMP 36.3; O2SAT 96
[2020-04-15] MEDS: vancomycin 1,250 MG/250 ML PIGGYBACK 200 MG IV (11:52)
[2020-04-15] MEDS: sodium chloride 0.9% 1,000 ML 125 ML IV (11:54)
[2020-04-15] MEDS: heparin 5,000 unit/mL INJ 1 mL 5000 UNIT SUBCUT ×2 (11:54→22:16)
[2020-04-15 12:03] LABS: Glucose Point of Care 242 mg/dL (70-110)
--- NOTE | 2020-04-15 12:22 | PC.CHAP ---
Pastoral Care Encounter/Spiritual Assessment Type of Contact [] Declined chicken dresser visit [] Patient/Family/Request visit [] Outpatient visit [] Follow-up visit [] Physician referral [] Code/Alert [] Routine visit [] Staff referral [] Actively dying [xx] Patient sleeping [] Family support [] [] Out of room [] Palliative care [] [] Receiving care in room [] Pre-surgical visit [] Trauma [] Long length of stay [] ICU visit [] Other: Relational/Emotional Strength [] Patient feels connected with others/family/visitors/staff [] Distress [] Loneliness/isolation [] Abandonment Spirituality of Patient [] Person of Devi [] Attends Mandaeism of their Devi [] Believes in Prayer [] Reads Bible or Adventist materials [] There are Spiritual issues to be addressed Jack Prizer Interventions [] Prayer [] Active listening [] Non-anxious presence [] Spiritual/emotional support [] Crisis/trauma care [] Spiritual counseling [] Bereavement support [] Provided bereavement packet [] Provided Bible/devotional materials [] Provided toy/stuffed animal, coloring book to patient or family member [] Provided Communion [] Anointing/Thayer [] Salvation [] Completed spiritual assessment [] Other: Impact on Illness or Injury [] Angry [] Fearful [] Anxious [] Often cries [] Exhaustion [] Unable to work [] Unable to attend advent [] Unable to walk/stand [] Unable to read [] Unable to drive [] Unable to eat/drink [] Unable to sleep [] Unable to be with family [] Patient intubated [] Other: Summary Patient was asleep when chicken dresser began and ended visitation rounds. Follow up recommended Time spent with patient 1 minute
[2020-04-15] MEDS: piperacillin-tazobactam 3.375 GM in sodium chloride 0.9% (plus) 50 ML IV ×2 (13:58→22:16)
--- NOTE | 2020-04-15 15:46 | PM.PN ---
Subjective Subjective: Interval history: Sodium improving to 134 today. Hyperkalemia resolved, at 4.9 today. Fingersticks are better controlled, changed to high-dose insulin sliding scale. A1c back at 10.5. Lactate resolved from 4.3-1.8. White blood cell count at 13.3. 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 Data : 04/15/20 04:30 04/15/20 04:30 Micro: Microbiology 04/14/20 16:28 Blood Culture - Preliminary Blood SPECIMEN COLLECTED 04/14/20 16:25 Blood Culture - Preliminary Blood SPECIMEN COLLECTED A&P Assessment and plan (1) Cellulitis: Cellulitis of the left foot surrounding an area of what appears to be gangrene, patient had a recent admission at an outside hospital, records requested from [facility] in [place]. Continue IV antibiotics including piperacillin tazobactam and vancomycin for diabetic foot infection. Change to inpatient admission ongoing need of IV antibiotics, leukocytosis persists, lactate resolved. Sepsis, present on admission, meets criteria by way of elevated lactate, leukocytosis, tachycardia. Status: Acute Qualifiers: Site of cellulitis: other site Qualified Code(s): L03.818 - Cellulitis of other sites (2) Constipation: Abdominal pain is improved today, he is passing flatus, tolerating diet Status: Acute Qualifiers: Constipation type: unspecified constipation type Qualified Code(s): K59.00 - Constipation, unspecified (3) Right foot ulcer: Unknown chronicity, records requested from [facility], foot ulceration showing signs of ischemic changes, possible developing wet gangrene Status: Acute Qualifiers: Non-pressure ulcer stage: unspecified non-pressure ulcer stage Qualified Code(s): L97.519 - Non-pressure chronic ulcer of other part of right foot with unspecified severity (4) Elevated lactic acid level: Currently of unclear significance Status: Acute (5) Peripheral arterial disease: Known diagnosis Status: Chronic (6) Diabetes mellitus, type II: Uncontrolled, hemoglobin A1c at 10.5. Change medium dose insulin sliding scale to high-dose sliding scale, continue Lantus Status: Chronic Qualifiers: Chronic kidney disease stage: stage 3 (moderate) Chronic kidney disease stage 3 subtype: stage 3a (GFR 45-59) Diabetes mellitus complication detail: with chronic kidney disease Diabetes mellitus complication status: with kidney complications Diabetes mellitus mission worker insulin use: with [facility] use Qualified Code(s): E11.21 - Type 2 diabetes mellitus with diabetic nephropathy; N18.31 - Chronic kidney disease, stage 3a; Z79.4 - bundle tier and labeler (current) use of insulin (7) Hypertension: Chronically on losartan, currently well controlled Status: Chronic Qualifiers: Hypertension type: essential hypertension Qualified Code(s): I10 - Essential (primary) hypertension (8) BPH (benign prostatic hyperplasia): Chronically on Flomax Status: Chronic Qualifiers: Lower urinary tract symptom presence: symptoms present Lower urinary tract symptom detail: urinary hesitancy Qualified Code(s): N40.1 - Benign prostatic hyperplasia with lower urinary tract symptoms; R39.11 - Hesitancy of micturition (9) Frequent falls: Including falls while hospitalized recently Appreciate physical therapy evaluation Status: Chronic Additional A&P Information DVT prophylaxis: Heparin Full code Attestations Medical Necessity Statement*: Ongoing need for anti-biotics for cellulitis, sepsis which was present on admission ongoing need for IV antibiotics for cellulitis, sepsis which was present on admission Coding Level of Care Code Acute Volunteer Patient Representative for [facility] Diagnoses Cellulitis L03.818 Site of cellulitis: other site Constipation K59.00 Constipation type: unspecified constipation type Right foot ulcer L97.519 Non-pressure ulcer stage: unspecified non-pressure ulcer stage Elevated lactic acid level R79.89 Peripheral arterial disease I73.9 Diabetes mellitus, type II E11.21; N18.31; Z79.4 Chronic kidney disease stage: stage 3 (moderate) Chronic kidney disease stage 3 subtype: stage 3a (GFR 45-59) Diabetes mellitus complication detail: with chronic kidney disease Diabetes mellitus complication status: with kidney complications Diabetes mellitus mission worker insulin use: with mission worker use Hypertension I10 Hypertension type: essential hypertension BPH (benign prostatic hyperplasia) N40.1; R39.11 Lower urinary tract symptom presence: symptoms present Lower urinary tract symptom detail: urinary hesitancy Frequent falls R29.6
[2020-04-15 15:48] VITALS: BP 136/57; PULSE 111; RESP 18; TEMP 36.4; O2SAT 94
[2020-04-15 17:45] LABS: Glucose Point of Care 206 mg/dL (70-110)
[2020-04-15 20:00] VITALS: BP 134/56; PULSE 104; RESP 20; TEMP 36.9; O2SAT 95
[2020-04-15] MEDS: sennosides 8.6 mg Tablet 17.2 MG PO (20:34)
[2020-04-15 21:35] LABS: Glucose Point of Care 153 mg/dL (70-110)
[2020-04-16] VITALS (7 sets, daily range): BP systolic 110–146; BP diastolic 68–85; PULSE 98–117; RESP 17–20; TEMP 36.4–37.2; O2SAT 94–99
[2020-04-16] MEDS: vancomycin 1,250 MG/250 ML PIGGYBACK 200 MG IV ×2 (04:18→23:01)
[2020-04-16] MEDS: piperacillin-tazobactam 3.375 GM in sodium chloride 0.9% (plus) 50 ML IV ×2 (05:45→18:27)
[2020-04-16 06:35] LABS: Basophils % 0.2 %; Eosinophils # 0.1 10^3/uL (0.0-0.8); Eosinophils % 0.6 %; Hematocrit 29.3 % (42.0-52.0); Hemoglobin 9.5 g/dL (11.7-16.6); Lymphocytes # 2.1 10^3/uL (0.8-4.8); Mean Corpuscular HGB Conc 32.4 g/dL (30.0-36.0); Mean Corpuscular Hemoglobin 29.2 pg (28.0-34.0); Mean Corpuscular Volume 90.2 fL (80-94); Mean Platelet Volume 9.4 fL (7.4-10.4); Monocytes % 7.8 %; Neutrophils # 9.14 10^3/uL (1.8-7.7); Neutrophils % 73.8 %; Nucleated Red Blood Cells % 0 %; Platelet Count 296 10^3/cmm (130-400); Red Blood Count 3.25 10^6/uL (4.1-5.3); Red Cell Distribution Width 13.5 % (12.1-15.1); White Blood Count 12.4 10^3/uL (4.0-10.0)
[2020-04-16 07:16] LABS: Glucose Point of Care 232 mg/dL (70-110)
[2020-04-16 07:29] LABS: Alanine Aminotransferase 15 U/L (0-41); Albumin Level 2.6 g/dL (3.5-5.2); Alkaline Phosphatase 127 IU/L (40-130); Anion Gap 17.1 (5-19); Aspartate Amino Transferase 15 U/L (0-40); Blood Urea Nitrogen 22 mg/dL (8-23); Calcium 8.1 mg/dL (8.5-10.5); Carbon Dioxide 22 mmol/L (22-29); Chloride 99 mmol/L (98-107); Globulin 3.9 g/dL (1.3-4.6); Glucose 223 mg/dL (65-115); Osmolality Calculated 286 mOsm/kg (285-295); Potassium 5.1 mmol/L (3.5-5.1); Sodium 133 mmol/L (136-145); Total Bilirubin 0.5 mg/dL (0.15-1.2); Total Protein 6.5 g/dL (6.6-8.7)
[2020-04-16] MEDS: insulin glargine 100 units/1 mL 5 UNIT SUBCUT ×2 (09:19→20:28)
[2020-04-16] MEDS: tamsulosin 0.4 mg Capsule PO ×2 (09:20→18:27)
[2020-04-16] MEDS: docusate sodium 100 mg Capsule 200 MG PO ×2 (09:20→18:27)
[2020-04-16] MEDS: amlodipine 10 mg Tablet PO (09:20)
[2020-04-16] MEDS: losartan 50 mg Tablet 25 MG PO (09:20)
[2020-04-16] MEDS: heparin 5,000 unit/mL INJ 1 mL 5000 UNIT SUBCUT ×2 (09:24→21:46)
--- NOTE | 2020-04-16 10:58 | PC.CHAP ---
Pastoral Care Encounter/Spiritual Assessment Type of Contact [] Declined front end developer visit [] Patient/Family/Request visit [] Outpatient visit [XX] Follow-up visit [] Physician referral [] Code/Alert [] Routine visit [] Staff referral [] Actively dying [XX] Patient sleeping [] Family support [] [] Out of room [] Palliative care [] [] Receiving care in room [] Pre-surgical visit [] Trauma [] Long length of stay [] ICU visit [] Other: Relational/Emotional Strength [] Patient feels connected with others/family/visitors/staff [] Distress [] Loneliness/isolation [] Abandonment Spirituality of Patient [] Person of Devi [] Attends Mormonism of their Devi [] Believes in Prayer [] Reads Bible or Mormon materials [] There are Spiritual issues to be addressed Divine Healer Interventions [] Prayer [] Active listening [] Non-anxious presence [] Spiritual/emotional support [] Crisis/trauma care [] Spiritual counseling [] Bereavement support [] Provided bereavement packet [] Provided Bible/devotional materials [] Provided toy/stuffed animal, coloring book to patient or family member [] Provided Communion [] Anointing/[place] [] Salvation [] Completed spiritual assessment [] Other: Impact on Illness or Injury [] Angry [] Fearful [] Anxious [] Often cries [] Exhaustion [] Unable to work [] Unable to attend judaism [] Unable to walk/stand [] Unable to read [] Unable to drive [] Unable to eat/drink [] Unable to sleep [] Unable to be with family [] Patient intubated [] Other: Summary Time spent with patient
[2020-04-16 11:06] LABS: Glucose Point of Care 269 mg/dL (70-110)
--- NOTE | 2020-04-16 12:58 | P.PN_ITS ---
Subjective Subjective: Interval history: Afebrile, hemodynamically stable, overnight had 1-2 episodes of vomiting. Noted to have wound dehiscence at site of erecnt amputation, with pus discharge. 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 Noted to have kelly pus d raining from site of wound dehiscence at recent amputation site Data : 04/16/20 06:21 04/16/20 06:21 Micro: Microbiology 04/14/20 16:25 Blood Culture - Preliminary Blood Coagulase negativ staphylococc 04/14/20 16:28 Blood Culture - Preliminary Blood NEGATIVE TO DATE A&P Assessment and plan (1) Cellulitis: Cellulitis/wet gangrene of the right (corrected from left foot yesterday) foot over the lateral aspect. Changes appear to be stable over yesterday. Additional history obtained by talking to patient's son today. Patient was recently admitted at [facility] in [place] and underwent amputation of the first digit of his right foot on March 28. He reportedly underwent some arterial studies prior to this amputation to a certain if he may need a higher level of amputation, but reportedly the arterial studies were fine and eventually it was decided just to proceed with amputation of the first digit. Per son he was also told that patient had abscess in the joint and therefore this wound was left open to drain. It has apparently been draining puslike material ever since he went to the facility. He is uncertain if the dressings were being changed. Patient was discharged on oral antibiotics, he is unable to tell me the name of these antibiotics, went to a assisted, however he fell at the facility and at this point family decided to bring him home because they were unhappy with the care he was receiving. Area of developing gangrene over the right foot is reportedly new per his son. Her discharge summary or discharge instructions were not able to be completed when he left the assisted therefore he has not been on any recent antibiotics at home. He is uncertain if patient may have injured his foot from this fall. We requested records, however have not received any arterial studies thus far. In light of developing changes over his right foot, will order lower extremity arterial duplex and CAT scan of the right foot to look for abscess. ESR is elevated, would not be surprised if there is also underlying septic arthritis or osteomyelitis. Puslike discharge is noted to be increased today, wound swab taken and sent for culture. Blood culture positive for coag negative staph, suspect this to be a contamination Continue IV antibiotics including piperacillin tazobactam and vancomycin, check vancomycin trough Sepsis, present on admission, meets criteria by way of elevated lactate, leukocytosis, tachycardia. Based on results of the arterial [place] and CT, will involve surgical services. Patient is currently hemodynamically stable. Status: Acute Qualifiers: Site of cellulitis: other site Qualified Code(s): L03.818 - Cellulitis of other sites (2) Constipation: Abdominal pain is improved today, he is passing flatus, tolerating diet Abdominal exam is completely benign, the patient does complain of overnight emesis. Diabetic gastroparesis may be contributing. We will add Reglan for symptomatic improvement. Protonix twice daily Still not had a bowel movement CT abdomen without any acute issues Status: Acute Qualifiers: Constipation type: unspecified constipation type Qualified Code(s): K59.00 - Constipation, unspecified (3) Right foot ulcer: Unknown chronicity, records requested from [facility], foot ulceration showing signs of ischemic changes, possible developing wet gangrene Status: Acute Qualifiers: Non-pressure ulcer stage: unspecified non-pressure ulcer stage Qualified Code(s): L97.519 - Non-pressure chronic ulcer of other part of right foot with unspecified severity (4) Peripheral arterial disease: Known diagnosis Status: Chronic (5) Diabetes mellitus, type II: Uncontrolled, hemoglobin A1c at 10.5. Fingersticks are better controlled after switching medium dose to high-dose insulin. Based on 24-hour requirements will adjust Lantus dosing. Status: Chronic Qualifiers: Chronic kidney disease stage: stage 3 (moderate) Chronic kidney disease stage 3 subtype: stage 3a (GFR 45-59) Diabetes mellitus complication detail: with chronic kidney disease Diabetes mellitus complication status: with kidney complications Diabetes mellitus [facility] insulin use: with [facility] use Qualified Code(s): E11.21 - Type 2 diabetes mellitus with diabetic nephropathy; N18.31 - Chronic kidney disease, stage 3a; Z79.4 - superintendent container terminal (current) use of insulin (6) Hypertension: Chronically on losartan, currently well controlled Status: Chronic Qualifiers: Hypertension type: essential hypertension Qualified Code(s): I10 - Essential (primary) hypertension (7) BPH (benign prostatic hyperplasia): Chronically on Flomax Status: Chronic Qualifiers: Lower urinary tract symptom presence: symptoms present Lower urinary tract symptom detail: urinary hesitancy Qualified Code(s): N40.1 - Benign prostatic hyperplasia with lower urinary tract symptoms; R39.11 - Hesitancy of micturition (8) Frequent falls: Including falls while hospitalized recently Appreciate physical therapy evaluation Status: Chronic Additional A&P Information DVT prophylaxis: Heparin Full code Attestations Medical Necessity Statement*: Needs ongoing admission for evaluation of wet gangrene, need for IV antibiotics, CT of the foot to evaluate for underlying abscesses, arterial studies. Coding Level of Care Code Acute Interventional Radiology Technologist for [facility] Diagnoses Cellulitis L03.818 Site of cellulitis: other site Constipation K59.00 Constipation type: unspecified constipation type Right foot ulcer L97.519 Non-pressure ulcer stage: unspecified non-pressure ulcer stage Peripheral arterial disease I73.9 Diabetes mellitus, type II E11.21; N18.31; Z79.4 Chronic kidney disease stage: stage 3 (moderate) Chronic kidney disease stage 3 subtype: stage 3a (GFR 45-59) Diabetes mellitus complication detail: with chronic kidney disease Diabetes mellitus complication status: with kidney complications Diabetes mellitus [facility] insulin use: with intermediate teacher use Hypertension I10 Hypertension type: essential hypertension BPH (benign prostatic hyperplasia) N40.1; R39.11 Lower urinary tract symptom presence: symptoms present Lower urinary tract symptom detail: urinary hesitancy Frequent falls R29.6
--- NOTE | 2020-04-16 12:59 | CTR_ITS ---
PROCEDURE INFORMATION: Exam: CT Right Lower Extremity Without Contrast, Foot Exam date and time: 04/16/2020 3:15 PM Age: 84 years old Clinical indication: Cellulitis and swelling of leg or foot on the left. History of right 1st toe amputation on March 24. Patient complains of drainage from surgical site. Evaluate for abscess. TECHNIQUE: Imaging protocol: CT of the Right lower extremity without contrast was performed. Exam focused on the foot. Radiation optimization: All CT scans at this facility use at least one of these dose optimization techniques: automated exposure control; mA and/or kV adjustment per patient size (includes targeted exams where dose is matched to clinical indication); or iterative reconstruction. COMPARISON: CR XR foot RT 2V [id number] 04/14/2020 5:21 PM RADIATION DOSE METRICS: Total DLP (mGy-cm): 165.99 FINDINGS: There has been recent transmetatarsal amputation of the 1st ray. 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 There is partial fragmentation of the distal 2nd metatarsal, and foci of gas are seen within the distal 2nd metatarsal bone indicating osteomyelitis. No definite drainable abscess is identified on the provided noncontrast images. There is thickening of the medial cord of the plantar fascia which may relate to retraction secondary to amputation. There are associated calcifications within the plantar fascia. CT/CT foot RT wo con* [id number] IMPRESSION: 1. 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 2. 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 3. No definite drainable abscess is identified on the provided noncontrast images. Radiation Dose CTDIVOL = (mGy): DLP = 165.99 (mGy-cm)
--- NOTE | 2020-04-16 14:21 | USCV_ITS ---
Frank Espinal Age: 84 Gender: M : 1935 Exam Date: 04/16/2020 14:21 Ordering Phys: Augustina Adams MD Technologist: Alec Hyde Exam Location: [facility] Indication: RT FOOT GANGREEN Risk Factors: Unknown Previous Vascular Surgery: Unknown RIGHT LEFT BP: 135.0 / 70.00 BP: 135.0/ 70.00 0 0 Waveform Velocity (cm/s) Velocity (cm/s) Waveform Triphasic 69.1 Iliac Prox 59.2 Triphasic Triphasic 74.6 Iliac Mid 75.6 Triphasic Triphasic 76.9 Iliac Distal 69.0 Triphasic Triphasic 75.4 ARTILLERY METEOROLOGICAL MAN 78.2 Triphasic Triphasic 87.8 SFA Prox 71.6 Triphasic Triphasic 71.5 SFA Mid 74.9 Triphasic Triphasic 80.0 SFA Dist 78.2 Triphasic Biphasic 63.7 POP 60.5 Biphasic Biphasic 143.3 FOREIGN CLERK 75.6 Triphasic Biphasic DPA 56.5 Triphasic JOSELYN 0.9 0.9 FINDINGS Mild diffuse plaques in the iliac and femoral arteries bilaterally Resting JOSELYN 0.9 bilaterally CONCLUSIONS 1. Features of mild peripheral artery disease bilaterally with no significant obstruction Dr Edilson Escalante MD [facility] (Electronically Signed) Final Date: 16 April 2020 16:41 S
[2020-04-16 17:52] LABS: Glucose Point of Care 230 mg/dL (70-110)
[2020-04-16 20:06] LABS: Glucose Point of Care 308 mg/dL (70-110)
[2020-04-16] MEDS: sennosides 8.6 mg Tablet 17.2 MG PO (20:27)
[2020-04-16 21:54] LABS: Vancomycin Trough 17.7 ug/mL (10-15)
[2020-04-16 22:12] LABS: Glucose Point of Care 157 mg/dL (70-110)
[2020-04-17] VITALS (7 sets, daily range): BP systolic 92–133; BP diastolic 51–74; PULSE 89–99; RESP 17–21; TEMP 36.6–37.3; O2SAT 95–100
[2020-04-17] MEDS: piperacillin-tazobactam 3.375 GM in sodium chloride 0.9% (plus) 50 ML IV ×3 (01:50→18:25)
[2020-04-17 06:45] LABS: Glucose Point of Care 252 mg/dL (70-110)
[2020-04-17] MEDS: insulin glargine 100 units/1 mL 5 UNIT SUBCUT ×2 (09:29→20:47)
[2020-04-17] MEDS: amlodipine 10 mg Tablet PO (09:30)
[2020-04-17] MEDS: docusate sodium 100 mg Capsule 200 MG PO ×2 (09:31→17:02)
[2020-04-17] MEDS: tamsulosin 0.4 mg Capsule PO ×2 (09:31→17:02)
[2020-04-17] MEDS: losartan 50 mg Tablet 25 MG PO (09:52)
[2020-04-17] MEDS: heparin 5,000 unit/mL INJ 1 mL 5000 UNIT SUBCUT ×2 (09:53→23:30)
[2020-04-17 11:55] LABS: Glucose Point of Care 243 mg/dL (70-110)
--- NOTE | 2020-04-17 14:51 | PM.PN ---
Subjective Subjective: Interval history: No acute complaints overnight. Hemodynamically stable, afebrile. Appreciate surgical evaluation today morning. CT foot yesterday showing ulcer involving the distal forefoot at the level of the 2nd metatarsal with foci of associated soft tissue gas tracking within the plantar soft tissues nearly 5 cm from the distal amputation margin, Osteomyelitis involving the distal cysts 2nd metatarsal. Medications: Reviewed: Yes Medication Review Details: Vitals/I&O/Wt Last Vital Signs Temp 97.8 F 04/17/20 12:00 Pulse 99 04/17/20 12:00 Resp 17 04/17/20 12:00 BP 92/56 04/17/20 12:00 Pulse Ox 96 04/17/20 12:00 04/16/20 04/17/20 04/17/20 22:59 06:59 14:59 Intake Total 790 / 1440 50 / 1490 300 / 300 Balance 790 / 1440 50 / 1490 300 / 300 Physical Exam Narrative: EXAM NARRATIVE: GEN: Awake, alert and oriented, no acute distress CVS: S1S2 N RS: CTA B/L Abd: Soft, nt/nd , bs+ ORTHO NURSE: no focal neuro deficits EXT: ongoing pus drainage from base of amputation site, probes to bone Data : 04/16/20 06:21 04/16/20 06:21 Other Labs: ESR 105 Vanc trough 04/16: 17.7 Micro: Microbiology 04/16/20 11:26 Wound Culture - Preliminary Leg - Wound Staphylococcus aureus 04/14/20 16:25 Blood Culture - Preliminary Blood Coagulase negativ staphylococc Other CT: I personally reviewed and interpreted this imaging study as follows: My impression: IMPRESSION: 1. 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 2. 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 3. No definite drainable abscess is identified on the provided noncontrast images. A&P Assessment and plan (1) Cellulitis: Cellulitis of the right (corrected from left foot yesterday) foot over the lateral aspect. Changes appear to be stable over yesterday. Pus discharge noted from base of recent amputation site, performed on March 28 at [facility]. Apparently he had some evidence of septic arthritis at the time. Unclear antibiotic history after discharge. Presented now with discharging pus from the site. CT of the foot was performed yesterday which did not show any discrete abscess, however osteomyelitis noted of the second metatarsal. Also noted to have foci of associated soft tissue gas tracking within the plantar tissues, which may be related to open ulceration versus cellulitic changes. Lower extremity arterial Doppler with mild peripheral artery disease without significant obstruction. Deep wound swab taken yesterday from the foot currently showing presence of staph aureus. Blood culture positive for coag negative staph, suspect this to be a contamination Discussed future course of action with the son extensively at bedside today. Options going forward include surgical intervention with removal of the second metatarsal with short course of antibiotics of 7 to 10 days to treat overlying cellulitis versus taking a conservative approach of treating for osteomyelitis over the next 6 weeks with IV antibiotics. Risks and benefits to both approaches discussed extensively. Patient's son and patient has elected to proceed with deferring further surgical intervention for now and taking the more conservative approach of treating with 6 weeks of IV antibiotics with the understanding that should there be antibiotic failure or unsatisfactory course of improvement, we may still need to proceed with removal of second metatarsal versus amputation. He acknowledges understanding and agrees to proceed with the same. For now continue IV antibiotics including piperacillin tazobactam and vancomycin while pending culture results. Appreciate surgical consult with Dr. Rodriguez. Patient planned for a bone biopsy tomorrow to help narrow down antibiotic choices and plan 6-week course. Will likely need a PICC line to facilitate above at the time of discharge, however awaiting final culture results to select appropriate abx. Status: Acute Qualifiers: Site of cellulitis: other site Qualified Code(s): L03.818 - Cellulitis of other sites (2) Constipation: vomiting resolved now No BM yet, passing flatus Abdominal exam is benign Protonix twice daily CT abdomen without any acute abdominal issues Status: Acute Qualifiers: Constipation type: unspecified constipation type Qualified Code(s): K59.00 - Constipation, unspecified (3) Right foot ulcer: Appreciate surgical consult Changes over lateral foot appear more to be pressure injury vs contusion from recent trauma, surrounding cellulitis improving. Status: Acute Qualifiers: Non-pressure ulcer stage: unspecified non-pressure ulcer stage Qualified Code(s): L97.519 - Non-pressure chronic ulcer of other part of right foot with unspecified severity (4) Peripheral arterial disease: no significant occlusion based on arterial duplex Status: Chronic (5) Diabetes mellitus, type II: Uncontrolled, hemoglobin A1c at 10.5. Fingersticks currently controlled Status: Chronic Qualifiers: Chronic kidney disease stage: stage 3 (moderate) Chronic kidney disease stage 3 subtype: stage 3a (GFR 45-59) Diabetes mellitus complication detail: with chronic kidney disease Diabetes mellitus complication status: with kidney complications Diabetes mellitus long term acute care registered nurse insulin use: with long term acute care registered nurse use Qualified Code(s): E11.21 - Type 2 diabetes mellitus with diabetic nephropathy; N18.31 - Chronic kidney disease, stage 3a; Z79.4 - long term acute care registered nurse (current) use of insulin (6) Hypertension: Chronically on losartan and amlodipine, currently well controlled Status: Chronic Qualifiers: Hypertension type: essential hypertension Qualified Code(s): I10 - Essential (primary) hypertension (7) BPH (benign prostatic hyperplasia): Chronically on Flomax Status: Chronic Qualifiers: Lower urinary tract symptom presence: symptoms present Lower urinary tract symptom detail: urinary hesitancy Qualified Code(s): N40.1 - Benign prostatic hyperplasia with lower urinary tract symptoms; R39.11 - Hesitancy of micturition (8) Frequent falls: Including falls while hospitalized recently Appreciate physical therapy evaluation Status: Chronic (9) Osteomyelitis of foot, right, acute: plan as above Status: Acute Additional A&P Information DVT prophylaxis: Heparin Full code Dispo: SNF vs home with Attestations Medical Necessity Statement*: ongoing need for iv abx for foot osteomyelitis, pending cx results, dispo planning Coding Level of Care Code Acute 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 for [facility] Diagnoses Cellulitis L03.818 Site of cellulitis: other site Constipation K59.00 Constipation type: unspecified constipation type Right foot ulcer L97.519 Non-pressure ulcer stage: unspecified non-pressure ulcer stage Peripheral arterial disease I73.9 Diabetes mellitus, type II E11.21; N18.31; Z79.4 Chronic kidney disease stage: stage 3 (moderate) Chronic kidney disease stage 3 subtype: stage 3a (GFR 45-59) Diabetes mellitus complication detail: with chronic kidney disease Diabetes mellitus complication status: with kidney complications Diabetes mellitus senior care insulin use: with senior care use Hypertension I10 Hypertension type: essential hypertension BPH (benign prostatic hyperplasia) N40.1; R39.11 Lower urinary tract symptom presence: symptoms present Lower urinary tract symptom detail: urinary hesitancy Frequent falls R29.6 Osteomyelitis of foot, right, acute M86.171
[2020-04-17] MEDS: vancomycin 1,250 MG/250 ML PIGGYBACK 200 MG IV (16:56)
[2020-04-17 17:14] LABS: Glucose Point of Care 108 mg/dL (70-110)
[2020-04-17 20:33] LABS: Glucose Point of Care 302 mg/dL (70-110)
[2020-04-17] MEDS: sennosides 8.6 mg Tablet 17.2 MG PO (20:47)
[2020-04-18] VITALS (7 sets, daily range): BP systolic 101–124; BP diastolic 61–78; PULSE 65–102; RESP 16–20; TEMP 36.3–37.2; O2SAT 94–100
[2020-04-18] MEDS: piperacillin-tazobactam 3.375 GM in sodium chloride 0.9% (plus) 50 ML IV ×3 (02:30→18:08)
[2020-04-18 05:16] LABS: Basophils % 0.3 %; Eosinophils # 0.3 10^3/uL (0.0-0.8); Eosinophils % 2.8 %; Hematocrit 31.3 % (42.0-52.0); Hemoglobin 10.2 g/dL (11.7-16.6); Lymphocytes # 2.5 10^3/uL (0.8-4.8); Lymphocytes % 25.9 %; Mean Corpuscular HGB Conc 32.6 g/dL (30.0-36.0); Mean Corpuscular Hemoglobin 29.6 pg (28.0-34.0); Mean Corpuscular Volume 90.7 fL (80-94); Mean Platelet Volume 9.6 fL (7.4-10.4); Monocytes # 0.9 10^3/uL (0.2-0.9); Monocytes % 8.8 %; Neutrophils # 5.91 10^3/uL (1.8-7.7); Neutrophils % 61.4 %; Nucleated Red Blood Cells % 0 %; Platelet Count 283 10^3/cmm (130-400); Red Blood Count 3.45 10^6/uL (4.1-5.3); Red Cell Distribution Width 13.6 % (12.1-15.1); White Blood Count 9.6 10^3/uL (4.0-10.0)
[2020-04-18 05:48] LABS: Alanine Aminotransferase 14 U/L (0-41); Albumin Level 2.2 g/dL (3.5-5.2); Alkaline Phosphatase 123 IU/L (40-130); Anion Gap 15.3 (5-19); Aspartate Amino Transferase 18 U/L (0-40); Blood Urea Nitrogen 23 mg/dL (8-23); Calcium 8.1 mg/dL (8.5-10.5); Carbon Dioxide 20 mmol/L (22-29); Chloride 102 mmol/L (98-107); Globulin 3.9 g/dL (1.3-4.6); Glucose 113 mg/dL (65-115); Osmolality Calculated 280 mOsm/kg (285-295); Potassium 4.3 mmol/L (3.5-5.1); Sodium 133 mmol/L (136-145); Total Bilirubin 0.5 mg/dL (0.15-1.2); Total Protein 6.1 g/dL (6.6-8.7)
[2020-04-18 06:35] LABS: Glucose Point of Care 154 mg/dL (70-110)
--- NOTE | 2020-04-18 07:36 | PC.SOCIAL ---
IMM Update Pg. [facility] of [facility] Updated and reviewed with patient. He verbalized understanding, but stated he couldn't see to sign. Copy provided.
[2020-04-18] MEDS: docusate sodium 100 mg Capsule 200 MG PO ×2 (08:59→18:06)
[2020-04-18] MEDS: tamsulosin 0.4 mg Capsule PO ×2 (08:59→18:06)
[2020-04-18] MEDS: amlodipine 10 mg Tablet PO (08:59)
[2020-04-18] MEDS: insulin glargine 100 units/1 mL 5 UNIT SUBCUT ×2 (09:03→19:57)
[2020-04-18] MEDS: vancomycin 1,250 MG/250 ML PIGGYBACK 200 MG IV (09:14)
--- NOTE | 2020-04-18 09:51 | PC.CHAP ---
Pastoral Care Encounter/Spiritual Assessment Type of Contact [] Declined mill roll operator visit [] Patient/Family/Request visit [] Outpatient visit [] Follow-up visit [] Physician referral [] Code/Alert [x] Routine visit [] Staff referral [] Actively dying [] Patient sleeping [] Family support [] [] Out of room [] Palliative care [] [] Receiving care in room [] Pre-surgical visit [] Trauma [] Long length of stay [] ICU visit [] Other: Relational/Emotional Strength [x] Patient feels connected with others/family/visitors/staff [] Distress [] Loneliness/isolation [] Abandonment Spirituality of Patient [x] Person of Devi [] Attends Yazidism of their Devi [] Believes in Prayer [] Reads Bible or Latter Day materials [] There are Spiritual issues to be addressed Addictions Counselor Assistant Interventions [x] Prayer [] Active listening [] Non-anxious presence [] Spiritual/emotional support [] Crisis/trauma care [] Spiritual counseling [] Bereavement support [] Provided bereavement packet [] Provided Bible/devotional materials [] Provided toy/stuffed animal, coloring book to patient or family member [] Provided Communion [] Anointing/[place] [] Salvation [x] Completed spiritual assessment [] Other: Impact on Illness or Injury [] Angry [] Fearful [] Anxious [] Often cries [] Exhaustion [] Unable to work [] Unable to attend alevism [] Unable to walk/stand [] Unable to read [] Unable to drive [] Unable to eat/drink [] Unable to sleep [] Unable to be with family [] Patient intubated [] Other: Summary feeling gpp\ood Time spent with patient 10 minj
[2020-04-18] MEDS: heparin 5,000 unit/mL INJ 1 mL 5000 UNIT SUBCUT ×2 (10:43→22:24)
[2020-04-18 10:58] LABS: Glucose Point of Care 259 mg/dL (70-110)
--- NOTE | 2020-04-18 11:47 | P.PN_ITS ---
Subjective Subjective: Interval history: No acute event over night, patient was seen comfortably resting in bed. Bone biopsies obtained at the bedside by surgery. Vitals and labs have been reviewed. Medications: Reviewed: Yes Medication Review Details: Vitals/I&O/Wt Last Vital Signs Temp 98.7 F 04/18/20 11:31 Pulse 65 04/18/20 11:31 Resp 16 04/18/20 11:31 BP 124/78 04/18/20 11:31 Pulse Ox 95 04/18/20 11:31 04/17/20 04/18/20 04/18/20 22:59 06:59 14:59 Intake Total 360 / 710 350 / 1060 610 / 610 Balance 360 / 710 350 / 1060 610 / 610 Physical Exam Resp: COMMON NORMALS: clear to auscultation bilaterally AUSCULTATION: clear to auscultation bilaterally Cardio: COMMON NORMALS: regular rate, regular rhythm, S1 normal heart sound present, S2 normal heart sound present, No gallops present (Cardio), No murmurs present (Cardio), No rub (Cardio) and Peripheral pulses 2+ throughout RATE: regular rate RHYTHM: regular rhythm HEART SOUNDS: S1 normal heart sound present and S2 normal heart sound present PERIPHERAL PULSES: Peripheral pulses 2+ throughout GI: COMMON NORMALS: Normal to inspection, nondistended, normoactive bowel sounds present, Soft to palpation, non-tender, No hepatosplenomegaly present and no masses AUSCULTATION: Yes normoactive bowel sounds PALPATION: Yes Soft to palpation and Yes No hepatosplenomegaly present RECTAL EXAM: Yes deferred Extremity: COMMON NORMALS: no clubbing, cyanosis or edema NARRATIVE EXTREMITY EXAM: well-healed scar right foot over the metatarsal head with dehiscence on the medial aspect with drainage of pus Data : 04/18/20 04:23 04/18/20 04:23 Micro: Microbiology 04/16/20 11:26 Wound Culture - Preliminary Leg - Wound Staphylococcus aureus A&P Assessment and plan (1) Cellulitis: Cellulitis of the right (corrected from left foot yesterday) foot over the lateral aspect. Changes appear to be stable over yesterday. Pus discharge noted from base of recent amputation site, performed on March 28 at [facility]. Apparently he had some evidence of septic arthritis at the time. Unclear antibiotic history after discharge. Presented now with discharging pus from the site. CT of the foot was performed yesterday which did not show any discrete abscess, however osteomyelitis noted of the second metatarsal. Also noted to have foci of associated soft tissue gas tracking within the plantar tissues, which may be related to open ulceration versus cellulitic changes. Lower extremity arterial Doppler with mild peripheral artery disease without significant obstruction. Deep wound swab taken yesterday from the foot currently showing presence of staph aureus. Blood culture positive for coag negative staph, suspect this to be a contamination Discussed future course of action with the son extensively at bedside today. Options going forward include surgical intervention with removal of the second metatarsal with short course of antibiotics of 7 to 10 days to treat overlying cellulitis versus taking a conservative approach of treating for osteomyelitis over the next 6 weeks with IV antibiotics. Risks and benefits to both approaches discussed extensively. Patient's son and patient has elected to proceed with deferring further surgical intervention for now and taking the more conservative approach of treating with 6 weeks of IV antibiotics with the understanding that should there be antibiotic failure or unsatisfactory course of improvement, we may still need to proceed with removal of second metatarsal versus amputation. He acknowledges understanding and agrees to proceed with the same. For now continue IV antibiotics including piperacillin tazobactam and vancomycin while pending culture results. Appreciate surgical consult with Dr. Rodriguez. S/P bone biopsy to help narrow down antibiotic choices and plan 6-week course. Will likely need a PICC line to facilitate above at the time of discharge, however awaiting final culture results to select appropriate abx. Status: Acute Qualifiers: Site of cellulitis: other site Qualified Code(s): L03.818 - Cellulitis of other sites (2) Constipation: vomiting resolved now No BM yet, passing flatus Abdominal exam is benign Protonix twice daily CT abdomen without any acute abdominal issues Status: Acute Qualifiers: Constipation type: unspecified constipation type Qualified Code(s): K59.00 - Constipation, unspecified (3) Right foot ulcer: Appreciate surgical consult Changes over lateral foot appear more to be pressure injury vs contusion from recent trauma, surrounding cellulitis improving. Status: Acute Qualifiers: Non-pressure ulcer stage: unspecified non-pressure ulcer stage Qualified Code(s): L97.519 - Non-pressure chronic ulcer of other part of right foot with unspecified severity (4) Peripheral arterial disease: no significant occlusion based on arterial duplex Status: Chronic (5) Diabetes mellitus, type II: Uncontrolled, hemoglobin A1c at 10.5. Fingersticks currently controlled Status: Chronic Qualifiers: Chronic kidney disease stage: stage 3 (moderate) Chronic kidney disease stage 3 subtype: stage 3a (GFR 45-59) Diabetes mellitus complication detail: with chronic kidney disease Diabetes mellitus complication status: with kidney complications Diabetes mellitus halfway insulin use: with terminal operations manager use Qualified Code(s): E11.21 - Type 2 diabetes mellitus with diabetic nephropathy; N18.31 - Chronic kidney disease, stage 3a; Z79.4 - [facility] (current) use of insulin (6) Hypertension: Chronically on losartan and amlodipine, currently well controlled Status: Chronic Qualifiers: Hypertension type: essential hypertension Qualified Code(s): I10 - Essential (primary) hypertension (7) BPH (benign prostatic hyperplasia): Chronically on Flomax Status: Chronic Qualifiers: Lower urinary tract symptom presence: symptoms present Lower urinary tract symptom detail: urinary hesitancy Qualified Code(s): N40.1 - Benign prostatic hyperplasia with lower urinary tract symptoms; R39.11 - Hesitancy of micturition (8) Frequent falls: Including falls while hospitalized recently Appreciate physical therapy evaluation Status: Chronic (9) Osteomyelitis of foot, right, acute: plan as above Status: Acute Additional A&P Information DVT prophylaxis: Heparin Full code Dispo: SNF vs home with HH Attestations Medical Necessity Statement*: Patient needs to be in hospital for the continued need for I.V Abxs for possible rt foot osteo Coding Level of Care Code Acute 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 [facility] Fwd Diagnoses Cellulitis L03.818 Site of cellulitis: other site Constipation K59.00 Constipation type: unspecified constipation type Right foot ulcer L97.519 Non-pressure ulcer stage: unspecified non-pressure ulcer stage Peripheral arterial disease I73.9 Diabetes mellitus, type II E11.21; N18.31; Z79.4 Chronic kidney disease stage: stage 3 (moderate) Chronic kidney disease stage 3 subtype: stage 3a (GFR 45-59) Diabetes mellitus complication detail: with chronic kidney disease Diabetes mellitus complication status: with kidney complications Diabetes mellitus terminal operations manager insulin use: with halfway use Hypertension I10 Hypertension type: essential hypertension BPH (benign prostatic hyperplasia) N40.1; R39.11 Lower urinary tract symptom presence: symptoms present Lower urinary tract symptom detail: urinary hesitancy Frequent falls R29.6 Osteomyelitis of foot, right, acute M86.171
--- NOTE | 2020-04-18 15:41 | P.CONIM_ITS ---
Providers/Reason For Consult Consulting Physican/Specialty*: Augustina Adams MD Reason for Consult*: Chronic wound left foot Attending Physician: Lul Rae MD Primary Care Provider: Carlos Nagy MD History of Present Illness History of Present Illness Frank Espinal is a 84 year old male who presented to the ER with complaints of abdominal pain and constipation. Patient had undergone amputation of his right second toe at [facility] in [place] and subsequently had developed dehiscence of the surgical incision on the lateral aspect of the wound. There has been drainage of pus. Patient denies any significant pain fevers or chills and states that he has no significant sensation his lower extremities. I had previously performed his great toe amputation. Review of Systems General: Reports: 10 or more systems reviewed and unremarkable except in HPI and below Meds/Allergies Home Medications and Allergies Home Medications Medication Instructions Recorded Confirmed Last Taken Type amlodipine 10 mg PO DAILY 04/14/20 04/14/20 Unknown History insulin regular human [Humulin R 30 unit SUBCUT BID 04/14/20 04/14/20 Unknown History Regular U-100 Insuln] losartan 25 mg PO DAILY 04/14/20 04/14/20 Unknown History tamsulosin 0.4 mg PO BID 04/14/20 04/14/20 Unknown History Allergies Allergy/AdvReac Type Severity Reaction Status Date / Time pneumococcal vaccine Allergy ALGY-Hives Verified 04/14/20 15:55 Current Medications Current Medications Generic Name Dose Route Start Last Admin Trade Name Freq PRN Reason Stop Dose Admin Amlodipine Besylate 10 mg 04/15/20 09:00 04/18/20 08:59 Amlodipine 10 Mg Tablet PO 10 mg DAILY MICK Administration Docusate Sodium 200 mg 04/15/20 09:00 04/18/20 08:59 Docusate Sodium 100 Mg Capsule PO 200 mg BID MICK Administration Heparin Sodium (Beef Lung) 5,000 unit 04/14/20 22:30 04/18/20 10:43 Heparin 5,000 Unit/Ml Inj 1 Ml SUBCUT 5,000 unit Q12H MICK Administration Piperacillin Sod/Tazobactam 50 mls @ 12.5 mls/hr 04/15/20 11:30 04/18/20 14:55 Sod 3.375 gm/ Sodium Chloride IV Infused Q8H MICK Infusion Protocol Vancomycin/PEG/NADA/Lysine/Water 1,250 mg in 250 mls @ 200 mls/hr 04/15/20 10:00 04/18/20 10:35 Vancocin IV Infused Q18H MICK Infusion Insulin Aspart 0 unit 04/15/20 12:00 04/18/20 13:36 Insulin Aspart 100 Unit/1 Ml SUBCUT 10 unit WM&BEDTIME MICK Administration Protocol Insulin Glargine 5 unit 04/15/20 08:00 04/18/20 09:03 Insulin Glargine 100 Units/1 Ml SUBCUT 5 unit BID@08,20 MICK Administration Losartan Potassium 25 mg 04/15/20 09:00 04/17/20 09:52 Losartan 50 Mg Tablet PO 25 mg DAILY MICK Administration Senna 17.2 mg 04/14/20 22:30 04/17/20 20:47 Sennosides 8.6 Mg Tablet PO 17.2 mg BEDTIME MICK Administration Tamsulosin HCl 0.4 mg 04/15/20 09:00 04/18/20 08:59 Tamsulosin 0.4 Mg Capsule PO 0.4 mg BID MICK Administration PFSH Acute PFSH: Medical History Blind left eye BPH (benign prostatic hyperplasia) CAD (coronary artery disease) Chronic kidney disease Diabetes mellitus, type II Frequent falls History of stroke Hypertension Osteoarthritis Peripheral arterial disease Surgical History 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 History of appendectomy History of cholecystectomy History of eye surgery History of partial ray amputation of second toe of right foot unknown if partial or complete, done in [place] possibly sometime recently though date unknown as of 04/14/20 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, Dr De Paz Family History Other CAD (coronary artery disease) Diabetes Social History Smoking and tobacco status: never smoked Alcohol intake: never Substance/Drug Use: never Household members: spouse and children Marital status: Vitals/I&O/Wt Last Vital Signs Temp 98.7 F 04/18/20 11:31 Pulse 65 04/18/20 11:31 Resp 16 04/18/20 11:31 BP 124/78 04/18/20 11:31 Pulse Ox 95 04/18/20 11:31 04/18/20 04/18/20 04/18/20 06:59 14:59 22:59 Intake Total 350 / 1060 1140 / 1140 Balance 350 / 1060 1140 / 1140 Physical Exam Narrative: EXAM NARRATIVE: HEENT: Normocephalic Eye: Sclera /conjunctiva normal Respiratory and chest: Bilateral clear breath sounds on auscultation Cardiovascular: Normal S1 and S2 heart sounds Abdomen: Soft to palpation Neurological: Oriented to place person and time Skin: Intact, well-healed scar right foot over the metatarsal head with dehiscence on the medial aspect with drainage of pus. The skin incision was opened at the bedside and loculations taken down bluntly. Wound was irrigated saline. No surrounding skin cellulitis noted Data Micro: Micro: Microbiology 04/16/20 11:26 Wound Culture - Fi nal Leg - Wound Methicillin Res is Staph Aureus A&P Assessment and plan (1) Osteomyelitis of foot, right, acute: Awaiting wound cultures, plan for PICC line placement Bone biopsies obtained at the bedside through the open wound Status: Acute (2) Right foot ulcer: Irrigate wound with saline and packed with quarter inch ribbon gauze twice daily Patient does not have significant soft tissue cellulitis and I think he would benefit from subsequent follow-up in wound care clinic at discharge. Status: Acute Qualifiers: Non-pressure ulcer stage: unspecified non-pressure ulcer stage Qualified Code(s): L97.519 - Non-pressure chronic ulcer of other part of right foot with unspecified severity Coding Level of Care Code Acute Manager Drug for [facility] Diagnoses Osteomyelitis of foot, right, acute M86.171 Right foot ulcer L97.519 Non-pressure ulcer stage: unspecified non-pressure ulcer stage
[2020-04-18 17:00] LABS: Glucose Point of Care 142 mg/dL (70-110)
[2020-04-18 21:27] LABS: Glucose Point of Care 264 mg/dL (70-110)
[2020-04-18] MEDS: sennosides 8.6 mg Tablet 17.2 MG PO (22:17)
[2020-04-19] MEDS: piperacillin-tazobactam 3.375 GM in sodium chloride 0.9% (plus) 50 ML IV ×2 (02:36→10:11)
[2020-04-19 04:00] VITALS: BP 119/68; PULSE 93; RESP 16; TEMP 36.7; O2SAT 97
[2020-04-19] MEDS: vancomycin 1,250 MG/250 ML PIGGYBACK 200 MG IV (04:11)
[2020-04-19 07:07] LABS: Glucose Point of Care 204 mg/dL (70-110)
[2020-04-19 08:00] VITALS: BP 151/75; PULSE 86; RESP 16; TEMP 36.7; O2SAT 94
[2020-04-19] MEDS: insulin glargine 100 units/1 mL 5 UNIT SUBCUT ×2 (08:09→21:32)
[2020-04-19] MEDS: amlodipine 10 mg Tablet PO (08:10)
[2020-04-19] MEDS: docusate sodium 100 mg Capsule 200 MG PO ×2 (08:10→17:26)
[2020-04-19] MEDS: tamsulosin 0.4 mg Capsule PO ×2 (08:10→17:26)
[2020-04-19] MEDS: heparin 5,000 unit/mL INJ 1 mL 5000 UNIT SUBCUT ×2 (10:21→21:35)
[2020-04-19 10:48] LABS: Glucose Point of Care 153 mg/dL (70-110)
--- NOTE | 2020-04-19 11:04 | PM.PN ---
Subjective Subjective: Interval history: Patient was seen and examined this morning.He is doing fine. Patient will need 6 weeks of I.V vancomycin as based on the deep wound culture growing MRSA. PICC Line placed. His other Vitals and labs have been reviewed. Medications: Reviewed: Yes Medication Review Details: Vitals/I&O/Wt Last Vital Signs Temp 98.1 F 04/19/20 08:00 Pulse 86 04/19/20 08:00 Resp 16 04/19/20 08:00 BP 151/75 04/19/20 08:00 Pulse Ox 94 04/19/20 08:00 04/18/20 04/19/20 04/19/20 22:59 06:59 14:59 Intake Total 530 / 1670 300 / 1970 500 / 500 Output Total 300 / 300 Balance 530 / 1670 0 / 1670 500 / 500 Physical Exam Resp: COMMON NORMALS: clear to auscultation bilaterally AUSCULTATION: clear to auscultation bilaterally Cardio: COMMON NORMALS: regular rate, regular rhythm, S1 normal heart sound present, S2 normal heart sound present, No gallops present (Cardio), No murmurs present (Cardio), No rub (Cardio) and Peripheral pulses 2+ throughout RATE: regular rate RHYTHM: regular rhythm HEART SOUNDS: S1 normal heart sound present and S2 normal heart sound present PERIPHERAL PULSES: Peripheral pulses 2+ throughout GI: COMMON NORMALS: Normal to inspection, nondistended, normoactive bowel sounds present, Soft to palpation, non-tender, No hepatosplenomegaly present and no masses AUSCULTATION: Yes normoactive bowel sounds PALPATION: Yes Soft to palpation and Yes No hepatosplenomegaly present RECTAL EXAM: Yes deferred Extremity: COMMON NORMALS: no clubbing, cyanosis or edema NARRATIVE EXTREMITY EXAM: well-healed scar right foot over the metatarsal head with dehiscence on the medial aspect with drainage of pus Data : 04/18/20 04:23 04/18/20 04:23 Micro: Microbiology 04/16/20 11:26 Wound Culture - Final Leg - Wound Methicillin Resis Staph Aureus A&P Assessment and plan (1) Osteomyelitis of foot, right, acute: Patient recently had surgery at [facility] for gangrene at 2nd foot, per report also told he has septic arthritis in the joint Currently noted to have pus discharge from base of amputation site, with tracking to bone, together with this, elevated ESR and imaging findings suggestive of osteomyelitis of metatarsal bone. Deep wound cx shows MRSA Discussed future course of action with the son extensively. Options going forward include surgical intervention with removal of the second metatarsal with short course of antibiotics of 7 to 10 days to treat overlying cellulitis versus taking a conservative approach of treating for osteomyelitis over the next 6 weeks with IV antibiotics. Risks and benefits to both approaches discussed extensively. Patient's son and patient has elected to proceed with deferring further surgical intervention for now and taking the more conservative approach of treating with 6 weeks of IV antibiotics with the understanding that should there be antibiotic failure or unsatisfactory course of improvement, we may still need to proceed with removal of second metatarsal versus amputation. Recommend 6 weeks of iv antibiotics with Vancomycin 1.25gm iv q 18h Discontinue iv Zosyn Check trough at midnight today Picc line to facilitate above wound care referral on discharge 04/16 blood cx 03/07: CoNs, likely contaminant Status: Acute (2) Cellulitis: improving, osteomyelitis plan as above Status: Acute Qualifiers: Site of cellulitis: other site Qualified Code(s): L03.818 - Cellulitis of other sites (3) Right foot ulcer: Appreciate surgical consult Changes over lateral foot appear more to be pressure injury vs contusion from recent trauma, surrounding cellulitis improving. Status: Acute Qualifiers: Non-pressure ulcer stage: unspecified non-pressure ulcer stage Qualified Code(s): L97.519 - Non-pressure chronic ulcer of other part of right foot with unspecified severity (4) Peripheral arterial disease: no significant occlusion based on arterial duplex Status: Chronic (5) Diabetes mellitus, type II: Uncontrolled, hemoglobin A1c at 10.5. Fingersticks currently controlled Status: Chronic Qualifiers: Chronic kidney disease stage: stage 3 (moderate) Chronic kidney disease stage 3 subtype: stage 3a (GFR 45-59) Diabetes mellitus complication detail: with chronic kidney disease Diabetes mellitus complication status: with kidney complications Diabetes mellitus exterminator helper termite insulin use: with skilled nursing use Qualified Code(s): E11.21 - Type 2 diabetes mellitus with diabetic nephropathy; N18.31 - Chronic kidney disease, stage 3a; Z79.4 - rodent exterminator (current) use of insulin (6) BPH (benign prostatic hyperplasia): Chronically on Flomax Status: Chronic Qualifiers: Lower urinary tract symptom presence: symptoms present Lower urinary tract symptom detail: urinary hesitancy Qualified Code(s): N40.1 - Benign prostatic hyperplasia with lower urinary tract symptoms; R39.11 - Hesitancy of micturition (7) Frequent falls: Including falls while hospitalized recently Appreciate physical therapy evaluation Status: Chronic Additional A&P Information Dispo: SNF discharge Attestations Medical Necessity Statement*: Patient needs to be in hospital for the management of Rt foot osteo and the need for I.V abxs Coding Level of Care Code Acute Customer Relations Coordinator for [facility] Fwd Diagnoses Osteomyelitis of foot, right, acute M86.171 Cellulitis L03.818 Site of cellulitis: other site Right foot ulcer L97.519 Non-pressure ulcer stage: unspecified non-pressure ulcer stage Peripheral arterial disease I73.9 Diabetes mellitus, type II E11.21; N18.31; Z79.4 Chronic kidney disease stage: stage 3 (moderate) Chronic kidney disease stage 3 subtype: stage 3a (GFR 45-59) Diabetes mellitus complication detail: with chronic kidney disease Diabetes mellitus complication status: with kidney complications Diabetes mellitus exterminator helper termite insulin use: with exterminator helper termite use BPH (benign prostatic hyperplasia) N40.1; R39.11 Lower urinary tract symptom presence: symptoms present Lower urinary tract symptom detail: urinary hesitancy Frequent falls R29.6
[2020-04-19 11:26] VITALS: BP 111/77; PULSE 103; RESP 16; TEMP 36.7; O2SAT 100
--- NOTE | 2020-04-19 11:51 | P.PN_ITS ---
Subjective Subjective: Interval history: This is an infectious disease progress note Chart reviewed, patient not seen today due to weather, care discussed with admitting physician. Leukocytosis resolved, afebrile, hemodynamically stable, wound culture with MRSA Medications: Reviewed: Yes Medication Review Details: Vitals/I&O/Wt Last Vital Signs Temp 98.1 F 04/19/20 11:26 Pulse 103 H 04/19/20 11:26 Resp 16 04/19/20 11:26 BP 111/77 04/19/20 11:26 Pulse Ox 100 04/19/20 11:26 04/18/20 04/19/20 04/19/20 22:59 06:59 14:59 Intake Total 530 / 1670 300 / 1970 500 / 500 Output Total 300 / 300 Balance 530 / 1670 0 / 1670 500 / 500 Physical Exam Narrative: EXAM NARRATIVE: Not examined, chart reviewed today Data : 04/18/20 04:23 04/18/20 04:23 Micro: Microbiology 04/16/20 11:26 Wound Culture - Final Leg - Wound Methicillin Resis Staph Aureus Microbiology 04/16/20 11:26 Leg - Wound Wound Culture - Final Methicillin Resis Staph Aureus 04/14/20 16:25 Blood Blood Culture - Preliminary Coagulase negativ staphylococc 04/14/20 16:28 Blood Blood Culture - Preliminary NEGATIVE TO DATE Spec #: [id number] Jeanie: 04/16/20-1125 Status: COMP Req #: [id number] Recd: 04/16/20-[address]: Augustina Adams MD Src: Leg SpDesc: Wound Ordered: Wound Procedure Result Verified Site Wound Culture Final 04/18/20-120 Organism 1 Methicillin Resis Staph Aureus Growth FEW FEW MIXED SUPERFICIAL BYRON PRESENT CRITICAL RESULT YES/NO: YES CRITICAL CALLED BY: JAS TO AND READ BACK BY: NITIN DATE: 04/17/20 TIME: 1355 2ND CRITICAL RES YES/NO: YES 2ND CRITICAL CALLED BY: RIZWAN 2ND TO AND READ BACK BY: ERNST DATE: 04/18/20 2ND CRITICAL TIME: 1202 MRSA M.I.C. RX --------- ------ * Ampicillin >8 R * Ciprofloxacin >2 R * Clindamycin >4 R * Erythromycin >4 R * Gentamicin <=4 S * Levofloxacin >4 R * Linezolid 4 S * Oxacillin >2 R * Penicillin >8 R * Rifampin <=1 S * Tetracycline <=4 S * Trimethoprim/Sulfamethoxazole <=0.5/9.5 S Vancomycin 2 S Daptomycin <=0.5 S Attestation for Other Data: I personally reviewed and interpreted the following: Other data: CT/CT foot RT wo con* [id number] IMPRESSION: 1. 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 2. 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 3. No definite drainable abscess is identified on the provided noncontrast images. A&P Assessment and plan (1) Osteomyelitis of foot, right, acute: Patient recently had surgery at [facility] for gangrene at 2nd foot, per report also told he has septic arthritis in the joint Currently noted to have pus discharge from base of amputation site, with tracking to bone, together with this, elevated ESR and imaging findings suggestive of osteomyelitis of metatarsal bone. Deep wound cx shows MRSA Discussed future course of action with the son extensively. Options going forward include surgical intervention with removal of the second metatarsal with short course of antibiotics of 7 to 10 days to treat overlying cellulitis versus taking a conservative approach of treating for osteomyelitis over the next 6 weeks with IV antibiotics. Risks and benefits to both approaches discussed ext ensively. Patient's son and patient has elected to proceed with deferring further surgical intervention for now and taking the more conservative approach of treating with 6 weeks of IV antibiotics with the understanding that should there be antibiotic failure or unsatisfactory course of improvement, we may still need to proceed with removal of second metatarsal versus amputation. Recommend 6 weeks of iv antibiotics with Vancomycin 1.25gm iv q 18h Discontinue iv vancomycin Check trough at midnight today Weekly labs including CBC, CMP, ESR, Vancomycin trough to be faxed to ID clinic Picc line to facilitate above wound care referral on discharge 04/16 blood cx 03/07: CoNs, likely contaminant Status: Acute (2) Cellulitis: improving, osteomyelitis plan as above Status: Acute Qualifiers: Site of cellulitis: other site Qualified Code(s): L03.818 - Cellulitis of other sites (3) Right foot ulcer: Appreciate surgical consult Changes over lateral foot appear more to be pressure injury vs contusion from recent trauma, surrounding cellulitis improving. Status: Acute Qualifiers: Non-pressure ulcer stage: unspecified non-pressure ulcer stage Qualif ied Code(s): L97.519 - Non-pressure chronic ulcer of other part of right foot with unspecified severity (4) Peripheral arterial disease: no significant occlusion based on arterial duplex Status: Chronic (5) Diabetes mellitus, type II: Uncontrolled, hemoglobin A1c at 10.5. Fingersticks currently controlled Status: Chronic Qualifiers: Chronic kidney disease stage: stage 3 (moderate) Chronic kidney disease stage 3 subtype: stage 3a (GFR 45-59) Diabetes mellitus complication detail: with chronic kidney disease Diabetes mellitus complication status: with kidney complications Diabetes mellitus long term acute care registered nurse insulin use: with long term acute care registered nurse use Qualified Code(s): E11.21 - Type 2 diabetes mellitus with diabetic nephropathy; N18.31 - Chronic kidney disease, stage 3a; Z79.4 - termite control servicer (current) use of insulin (6) BPH (benign prostatic hyperplasia): Chronically on Flomax Status: Chronic Qualifiers: Lower urinary tract symptom presence: symptoms present Lower urinary tract symptom detail: urinary hesitancy Qualified Code(s): N40.1 - Benign prostatic hyperplasia with lower urinary tract symptoms; R39.11 - Hesitancy of micturition (7) Frequent falls: Including falls while hospitalized recently Appreciate physical therapy evaluation Status: Chronic Additional A&P Information Dispo: SNF discharge Attestations Medical Necessity Statement*: per admitting note, need for iv abx, PICC line Coding Level of Care Code Acute Receiving Room Clerk for [facility] Fwd Diagnoses Osteomyelitis of foot, right, acute M86.171 Cellulitis L03.818 Site of cellulitis: other site Right foot ulcer L97.519 Non-pressure ulcer stage: unspecified non-pressure ulcer stage Peripheral arterial disease I73.9 Diabetes mellitus, type II E11.21; N18.31; Z79.4 Chronic kidney disease stage: stage 3 (moderate) Chronic kidney disease stage 3 subtype: stage 3a (GFR 45-59) Diabetes mellitus complication detail: with chronic kidney disease Diabetes mellitus complication status: with kidney complications Diabetes mellitus long term acute care registered nurse insulin use: with long term acute care registered nurse use BPH (benign prostatic hyperplasia) N40.1; R39.11 Lower urinary tract symptom presence: symptoms present Lower urinary tract symptom detail: urinary hesitancy Frequent falls R29.6
--- NOTE | 2020-04-19 13:32 | XR_ITS ---
WS: [id number] PORTABLE CHEST HISTORY: Post PICC placement COMPARISON: 04/14/2020. Right-sided PICC line with tip terminating in the distal SVC near the atrial junction. No pneumonia. Benign granuloma at the LEFT lung base. No pleural effusion or pneumothorax. Cardiac size: Normal. Mediastinum/Aorta: Normal mediastinum. Osteopenia. XR/XR chest 1V portable [id number] IMPRESSION: Satisfactory placement of a RIGHT PICC line.
--- NOTE | 2020-04-19 15:42 | PM.PN ---
Subjective Subjective: Interval history: Overall he has been doing well, had a PICC line placed today. His wound is being packed twice a day Vitals/I&O/Wt Last Vital Signs Temp 98.1 F 04/19/20 11:26 Pulse 103 H 04/19/20 11:26 Resp 16 04/19/20 11:26 BP 111/77 04/19/20 11:26 Pulse Ox 100 04/19/20 11:26 04/19/20 04/19/20 04/19/20 06:59 14:59 22:59 Intake Total 300 / 1970 640 / 640 Output Total 300 / 300 Balance 0 / 1670 640 / 640 Physical Exam Narrative: EXAM NARRATIVE: Right foot: No significant cellulitis, has purulent drainage on the dressings Data : 04/18/20 04:23 04/18/20 04:23 Micro: Microbiology 04/16/20 11:26 Wound Culture - Final Leg - Wound Methicillin Resis Staph Aureus A&P Assessment and plan (1) Osteomyelitis of foot, right, acute: Bone biopsy sent from the right second metatarsal head Status: Acute (2) Right foot ulcer: Irrigate wound with saline and packed with quarter inch ribbon gauze twice daily Follow-up in wound care Status: Acute Qualifiers: Non-pressure ulcer stage: unspecified non-pressure ulcer stage Qualified Code(s): L97.519 - Non-pressure chronic ulcer of other part of right foot with unspecified severity Attestations Medical Necessity Statement*: Osteomyelitis right second metatarsal head requiring long-term IV antibiotics Coding Level of Care Code Acute Ice Guard Skating [employer]ink for [facility] Diagnoses Osteomyelitis of foot, right, acute M86.171 Right foot ulcer L97.519 Non-pressure ulcer stage: unspecified non-pressure ulcer stage
[2020-04-19 16:00] VITALS: BP 117/68; PULSE 97; RESP 18; TEMP 36.7; O2SAT 96
[2020-04-19 16:35] LABS: Glucose Point of Care 171 mg/dL (70-110)
[2020-04-19 19:25] VITALS: BP 111/60; PULSE 87; RESP 18; TEMP 36.6; O2SAT 97
[2020-04-19 20:36] LABS: Glucose Point of Care 308 mg/dL (70-110)
[2020-04-19] MEDS: sennosides 8.6 mg Tablet 17.2 MG PO (20:43)
[2020-04-19 22:23] LABS: Vancomycin Trough 25.2 ug/mL (10-15)
[2020-04-19 23:59] VITALS: BP 105/58; PULSE 88; RESP 18; TEMP 36.6; O2SAT 98
[2020-04-20 03:59] VITALS: BP 114/63; PULSE 94; RESP 18; TEMP 37.2; O2SAT 98
[2020-04-20 06:26] LABS: Glucose Point of Care 163 mg/dL (70-110)
[2020-04-20 07:59] VITALS: BP 134/72; PULSE 90; RESP 17; TEMP 36.7; O2SAT 98
[2020-04-20] MEDS: amlodipine 10 mg Tablet PO (08:34)
[2020-04-20] MEDS: docusate sodium 100 mg Capsule 200 MG PO (08:34)
[2020-04-20] MEDS: tamsulosin 0.4 mg Capsule PO (08:34)
--- NOTE | 2020-04-20 09:38 | PC.CHAP ---
Pastoral Care Encounter/Spiritual Assessment Type of Contact [] Declined child care attendant visit [] Patient/Family/Request visit [] Outpatient visit [] Follow-up visit [] Physician referral [] Code/Alert [x] Routine visit [] Staff referral [] Actively dying [] Patient sleeping [] Family support [] [] Out of room [] Palliative care [] [x] Receiving care in room [] Pre-surgical visit [] Trauma [] Long length of stay [] ICU visit [] Other: Relational/Emotional Strength [] Patient feels connected with others/family/visitors/staff [] Distress [] Loneliness/isolation [] Abandonment Spirituality of Patient [] Person of Devi [] Attends Taoist of their Devi [] Believes in Prayer [] Reads Bible or Orthodoxy materials [] There are Spiritual issues to be addressed Switch Adjuster Interventions [] Prayer [] Active listening [] Non-anxious presence [] Spiritual/emotional support [] Crisis/trauma care [] Spiritual counseling [] Bereavement support [] Provided bereavement packet [] Provided Bible/devotional materials [] Provided toy/stuffed animal, coloring book to patient or family member [] Provided Communion [] Anointing/[place] [] Salvation [x] Completed spiritual assessment [] Other: Impact on Illness or Injury [] Angry [] Fearful [] Anxious [] Often cries [] Exhaustion [] Unable to work [] Unable to attend restoration [] Unable to walk/stand [] Unable to read [] Unable to drive [] Unable to eat/drink [] Unable to sleep [] Unable to be with family [] Patient intubated [] Other: Summary Time spent with patient
--- NOTE | 2020-04-20 10:39 | PM.DCS ---
Discharge Providers Date of Admission: 04/15/20 15:50 Date of Discharge: April 20, 2020 Attending Provider at Admission: Galina Hidalgo MD Attending Provider at Discharge: Lul Rae MD Primary Care Provider: Carlos Nagy MD Diagnoses at Discharge Discharge Diagnosis (1) Osteomyelitis of foot, right, acute: Status: Acute (2) Peripheral arterial disease: Status: Chronic (3) Diabetes mellitus, type II: Status: Chronic Qualifiers: Chronic kidney disease stage: stage 3 (moderate) Chronic kidney disease stage 3 subtype: stage 3a (GFR 45-59) Diabetes mellitus complication detail: with chronic kidney disease Diabetes mellitus complication status: with kidney complications Diabetes mellitus skilled nursing insulin use: 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 Qualified Code(s): E11.21 - Type 2 diabetes mellitus with diabetic nephropathy; N18.31 - Chronic kidney disease, stage 3a; Z79.4 - alf (current) use of insulin (4) BPH (benign prostatic hyperplasia): Status: Chronic Qualifiers: Lower urinary tract symptom detail: urinary hesitancy Lower urinary tract symptom presence: symptoms present Qualified Code(s): N40.1 - Benign prostatic hyperplasia with lower urinary tract symptoms; R39.11 - Hesitancy of micturition (5) Frequent falls: Status: Chronic Reason for Visit Reason for Visit: ABDOMINAL PAIN/ CONSTIPATION Hospital Course Hospital Course 84 Y O M WITH PMH of CAD, HTN, DM, CVA, 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 CT foot was showing ulcer involving the distal forefoot at the level of the 2nd metatarsal with foci of associated soft tissue gas tracking within the plantar soft tissues nearly 5 cm from the distal amputation margin, Osteomyelitis involving the distal cysts 2nd metatarsal.CV arterial duplex LE BI Features of mild peripheral artery disease bilaterally with no significant obstruction. I.D recommended to continue with I.V vancomycin for 6 weeks with the understanding that should there be antibiotic failure or unsatisfactory course of improvement, we may still need to proceed with removal of second metatarsal versus amputation.His case was discussed extensively with his son Options going forward where explained to him surgical intervention with removal of the second metatarsal with short course of antibiotics of 7 to 10 days to treat overlying cellulitis versus taking a conservative approach of treating for osteomyelitis over the next 6 weeks with IV antibiotics.He agreed to above that is going with 6 weeks I/V abxs for now. During this hospital stay initially patient was also on zosyn, which was later discontinued based on the culture report. Fo his PAD there was no significant occlusion based on arterial duplex. Patient will continue to follow I.D as outpatient. Physical Exam Resp: COMMON NORMALS: clear to auscultation bilaterally AUSCULTATION: clear to auscultation bilaterally Cardio: COMMON NORMALS: regular rate, regular rhythm, S1 normal heart sound present, S2 normal heart sound present, No gallops present (Cardio), No murmurs present (Cardio), No rub (Cardio) and Peripheral pulses 2+ throughout RATE: regular rate RHYTHM: regular rhythm HEART SOUNDS: S1 normal heart sound present and S2 normal heart sound present PERIPHERAL PULSES: Peripheral pulses 2+ throughout GI: COMMON NORMALS: Normal to inspection, nondistended, normoactive bowel sounds present, Soft to palpation, non-tender, No hepatosplenomegaly present and no masses AUSCULTATION: Yes normoactive bowel sounds PALPATION: Yes Soft to palpation and Yes No hepatosplenomegaly present RECTAL EXAM: Yes deferred Extremity: COMMON NORMALS: no clubbing, cyanosis or edema NARRATIVE EXTREMITY EXAM: well-healed scar right foot over the metatarsal head with dehiscence on the medial aspect Discharge Data Data Completed and Pending: Completed Studies During Hospitalization Category Date Time Status CT abdomen pelvis w con* 70620 Stat Cat Scan 04/14/20 16:[address] foot RT wo con * [id number] Routine Cat Scan 04/16/20 12:59 Completed CXRP [XR chest 1V portable 33638] R outine Exams 04/19/20 13:32 Completed XR chest 1V franchesca ble 55559 Urgent Exams 04/14/20 15:53 Completed XR foot RT 2V 736 20 Stat Exams 04/14/20 17:13 [place] [address] Rout ine Ultrasound 04/16/20 14:21 Completed Pending at discharge Category Date Time Status Blood Culture Sta t Lab 04/14/20 16:28 Results Pathology: Surgic al [PTH] Routine Pth 04/19/20 15:26 Ordered Labs from last 24 hours 04/20/20 04/19/20 04/19/20 06:18 20:47 20:24 POC Glucose 163 H 308 H Vancomycin Trough 25.2 H* 04/19/20 04/19/20 16:19 10:26 POC Glucose 171 H 153 H Vancomycin Trough Vitals: Last Vital Signs Temp 98.1 F 04/20/20 07:59 Pulse 90 04/20/20 07:59 Resp 17 04/20/20 07:59 BP 134/72 04/20/20 07:59 Pulse Ox 98 04/20/20 07:59 Discharge Plan Discharge Patient Disposition: Xfer SNF Condition: Stable Prescriptions: New vancomycin 1.25 gram recon soln 1.25 g IV Q18H 42 Days RF: 0 Continued tamsulosin 0.4 mg capsule 0.4 mg PO BID RF: 0 amlodipine 10 mg Tablet 10 mg PO DAILY RF: 0 Humulin R Regular U-100 Insuln 100 unit/mL Solution 30 unit SUBCUT BID RF: 0 losartan 25 mg Tablet 25 mg PO DAILY RF: 0 Discharge Orders: Discharge Order (Routine); Ordered 04/20/20 Ordered By: Lul Rae Other Ambulatory Orders: Complete Blood Count w/Auto (WEEKLY) Timeframe: 20200426 Location: Determined by Patient Ordered By: Augustina Smithria Complete Blood Count w/Auto (WEEKLY) Timeframe: 20200427 Location: Determined by Patient Ordered By: Augustina Smithria Complete Blood Count w/Auto (WEEKLY) Timeframe: 20200428 Location: Determined by Patient Ordered By: Augustina Hsuhuria Complete Blood Count w/Auto (WEEKLY) Timeframe: 20200429 Location: Determined by Patient Ordered By: Augustina Smithria Complete Blood Count w/Auto (WEEKLY) Timeframe: 20200430 Location: Determined by Patient Ordered By: Augustina Hsuhuria Complete Blood Count w/Auto (WEEKLY) Timeframe: 20200501 Location: Determined by Patient Ordered By: Augustina Adams Comprehensive Metabolic Panel (WEEKLY) Timeframe: 20200426 Facility: [facility] - Location: Lab - Main Lab Ordered By: Augustina Kathuria Comprehensive Metabolic Panel (WEEKLY) Timeframe: 20200427 Facility: [facility] - Location: Lab - Main Lab Ordered By: Augustina Kathuria Comprehensive Metabolic Panel (WEEKLY) Timeframe: 20200428 Facility: [facility] - Location: Lab - Main Lab Ordered By: Augustina Kathuria Comprehensive Metabolic Panel (WEEKLY) Timeframe: 20200429 Facility: [facility] - Location: Lab - Main Lab Ordered By: Augustina Kathuria Comprehensive Metabolic Panel (WEEKLY) Timeframe: 20200430 Facility: [facility] - Location: Lab - Main Lab Ordered By: Augustina Kathuria Comprehensive Metabolic Panel (WEEKLY) Timeframe: 20200501 Facility: [facility] - Location: Lab - Main Lab Ordered By: Augustina Kathuria Erythrocyte Sedimentation Rate (WEEKLY) Timeframe: 20200426 Facility: [facility] - Location: Lab - Main Lab Ordered By: Augustina Kathuria Erythrocyte Sedimentation Rate (WEEKLY) Timeframe: 20200427 Facility: [facility] - Location: Lab - Main Lab Ordered By: Augustina Kathuria Erythrocyte Sedimentation Rate (WEEKLY) Timeframe: 20200428 Facility: [facility] - Location: Lab - Main Lab Ordered By: Augustina Kathuria Erythrocyte Sedimentation Rate (WEEKLY) Timeframe: 20200429 Facility: [facility] - Location: Lab - Main Lab Ordered By: Augustina Kathuria Erythrocyte Sedimentation Rate (WEEKLY) Timeframe: 20200430 Facility: [facility] - Location: Lab - Main Lab Ordered By: Augustina Kathuria Erythrocyte Sedimentation Rate (WEEKLY) Timeframe: 20200501 Facility: [facility] - Location: Lab - Main Lab Ordered By: Augustina Kathuria Vancomycin Trough (WEEKLY) Timeframe: 20200426 Facility: [facility] - Location: Lab - Main Lab Ordered By: Augustina Kathuria Vancomycin Trough (WEEKLY) Timeframe: 20200427 Facility: [facility] - Location: Lab - Main Lab Ordered By: Augustina Kathuria Vancomycin Trough (WEEKLY) Timeframe: 20200428 Facility: [facility] - Location: Lab - Main Lab Ordered By: Augustina Kathuria Vancomycin Trough (WEEKLY) Timeframe: 20200429 Facility: [facility] - Location: Lab - Main Lab Ordered By: Augustina Kathuria Vancomycin Trough (WEEKLY) Timeframe: 20200430 Facility: [facility] - Location: Lab - Main Lab Ordered By: Augustina Adams Vancomycin Trough (WEEKLY) Timeframe: 20200501 Facility: [facility] - Location: Lab - Main Lab Ordered By: Augustina Adams Referrals: [facility] [Outside] Augustina Adams MD [Hospitalist] - 05/31/20 11:00 am (follow up ) Discharge Diet: Diabetic Discharge Activity: Increase activity as tolerated Discharge Attestations Time Spent in Discharge Care*: less than 30 min Specific Discharge Activities: educating patient, educating and/or supporting family/caregiver, discussing with case management specialist/social workers/dc planners, documenting/other paperwork and evaluating patient/reviewing data Status at Discharge: Cognitive status at discharge: cognitively intact, Behavioral status at discharge: cooperative, Functional status at discharge: other assisted ambulation Overall status at discharge: patient is back to baseline Quality Metrics Clinical Quality Measures During this hospital stay, did patient experience: None Coding Level of Care Code Acute Skin Carver for [facility] Fwd Diagnoses Osteomyelitis of foot, right, acute M86.171 Peripheral arterial disease I73.9 Diabetes mellitus, type II E11.21; N18.31; Z79.4 Chronic kidney disease stage: stage 3 (moderate) Chronic kidney disease stage 3 subtype: stage 3a (GFR 45-59) Diabetes mellitus complication detail: with chronic kidney disease Diabetes mellitus complication status: with kidney complications Diabetes mellitus 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
[2020-04-20] MEDS: heparin 5,000 unit/mL INJ 1 mL 5000 UNIT SUBCUT (10:52)
[2020-04-20] MEDS: insulin glargine 100 units/1 mL 5 UNIT SUBCUT (10:52)
[2020-04-20 11:26] LABS: Glucose Point of Care 230 mg/dL (70-110)
[2020-04-20 12:00] VITALS: BP 117/61; PULSE 98; RESP 17; TEMP 37.1; O2SAT 98
[2020-04-20 13:49] VITALS: BP 117/61; PULSE 98; RESP 17; TEMP 37.1; O2SAT 98
--- NOTE | 2020-04-20 14:10 | PC.SOCIAL ---
Per Nisreen some confusion related to Vancomycin dosing and times. Called Dr Adams Verbal order received to hold on vanc rest of today and do not administer Vancomycin tomorrow. On Saturday am have random vanc drawn. Depending on value pharmacy at [facility] can dose accordingly or can call Dr Adams for further Vanc dosing instructions. Read back to Dr Adams to confirm. Call placed to Kassandra at [facility] and provided the verbal order. Kassandra read back verbal order to confirm and he was given the contact information of Dr Adams. No further questions. Niseren in CM updated and present during conversations.
--- NOTE | 2020-04-20 16:14 | PC.SOCIAL ---
*IMM Updated* Patient received updated IMM. This bid writer initialled and placed in chart.
--- NOTE | 2020-04-20 16:15 | PC.SOCIAL ---
*IMM Updated* Patient received updated IMM. This sql report writer initialled and placed in chart.
== END 2020-04-20 13:49 | disposition skilled nursing facility (03) | DRG 872 ==
LOC: ER 16:48 → MEDSURG 19:35
PROVIDERS: Student in an Organized Health Care Education/Training Program; Admitting Provider Hospitalist; Emergency Provider Family Medicine; PCP Family Medicine; Visit Provider Internal Medicine
DX: A41.9 Sepsis, unspecified organism (principal); M86.171 Other acute osteomyelitis, right ankle and foot; L03.115 Cellulitis of right lower limb; M86.9 Osteomyelitis, unspecified; K59.00 Constipation, unspecified; L97.519 Non-pressure chronic ulcer of other part of right foot with unspecified severity; E11.621 Type 2 diabetes mellitus with foot ulcer; R29.6 Repeated falls; R39.11 Hesitancy of micturition; N40.1 Benign prostatic hyperplasia with lower urinary tract symptoms; I12.9 Hypertensive chronic kidney disease with stage 1 through stage 4 chronic kidney disease, or unspecified chronic kidney disease; E11.22 Type 2 diabetes mellitus with diabetic chronic kidney disease; E11.21 Type 2 diabetes mellitus with diabetic nephropathy; E11.51 Type 2 diabetes mellitus with diabetic peripheral angiopathy without gangrene; Z79.4 Long term (current) use of insulin; N18.31 Chronic kidney disease, stage 3a; I25.10 Atherosclerotic heart disease of native coronary artery without angina pectoris; Z89.411 Acquired absence of right great toe; H54.62 Unqualified visual loss, left eye, normal vision right eye; Z86.73 Personal history of transient ischemic attack (TIA), and cerebral infarction without residual deficits; M19.90 Unspecified osteoarthritis, unspecified site; Z95.1 Presence of aortocoronary bypass graft; Z89.421 Acquired absence of other right toe(s)
CPT/HCPCS: 36415; 36416; 36569; 36600; 71045; 73620; 73700; 74177; 80048; 80053; 80202; 81001; 82803; 82962; 83036; 83605; 83690; 83735; 83880; 84100; 84484; 85025; 85610; 85651; 86140; 87040; 87070; 87077; 87186; 87205; 88304; 93005; 93925; 96365; 96367; 96372; 96375; 97110; 97162; 97530; 99285; G0378; J1644; J1815 ×2; J2270; J2543; J3370; J7030; J7050; Q9967

== ENCOUNTER 2020-04-27 13:18 | Outpatient (CLI) | payer MEDICARE, MEDICAID, SELFPAY | END 2020-04-27 13:19 | disposition home or self-care (01) | LOC: WOUND 13:19 | PROVIDERS: PCP Family Medicine; Visit Provider Thoracic Surgery (Cardiothoracic Vascular Surgery) | DX: E11.621 Type 2 diabetes mellitus with foot ulcer (principal); L97.513 Non-pressure chronic ulcer of other part of right foot with necrosis of muscle; Z89.421 Acquired absence of other right toe(s) | CPT/HCPCS: 11043; 99214 ==

== ENCOUNTER 2020-04-29 11:52 | Outpatient (CLI) | payer MEDICARE, MEDICAID, SELFPAY ==
[2020-04-29 12:55] LABS: Vancomycin Trough 19.3 ug/mL (10-15)
== END 2020-04-29 11:53 | disposition home or self-care (01) ==
PROVIDERS: PCP Family Medicine; Visit Provider Internal Medicine
DX: Z79.899 Other long term (current) drug therapy (principal)
CPT/HCPCS: 80202

== ENCOUNTER 2020-05-02 11:28 | Outpatient (CLI) | payer MEDICARE, MEDICAID, SELFPAY ==
[2020-05-02 11:55] LABS: Basophils % 0.4 %; Eosinophils # 0.2 10^3/uL (0.0-0.8); Eosinophils % 3.2 %; Hematocrit 27.7 % (42.0-52.0); Hemoglobin 8.9 g/dL (11.7-16.6); Lymphocytes # 1.6 10^3/uL (0.8-4.8); Lymphocytes % 29.1 %; Mean Corpuscular HGB Conc 32.1 g/dL (30.0-36.0); Mean Corpuscular Hemoglobin 30.1 pg (28.0-34.0); Mean Corpuscular Volume 93.6 fL (80-94); Mean Platelet Volume 9.2 fL (7.4-10.4); Monocytes # 0.5 10^3/uL (0.2-0.9); Monocytes % 9.1 %; Neutrophils # 3.09 10^3/uL (1.8-7.7); Neutrophils % 57.6 %; Nucleated Red Blood Cells % 0 %; Platelet Count 366 10^3/cmm (130-400); Red Blood Count 2.96 10^6/uL (4.1-5.3); White Blood Count 5.4 10^3/uL (4.0-10.0)
[2020-05-02 12:06] LABS: Vancomycin Trough 21.6 ug/mL (10-15)
[2020-05-02 12:07] LABS: Alanine Aminotransferase 24 U/L (0-41); Albumin Level 2.5 g/dL (3.5-5.2); Alkaline Phosphatase 152 IU/L (40-130); Anion Gap 14.3 (5-19); Aspartate Amino Transferase 18 U/L (0-40); Blood Urea Nitrogen 20 mg/dL (8-23); Calcium 8.1 mg/dL (8.5-10.5); Carbon Dioxide 21 mmol/L (22-29); Chloride 103 mmol/L (98-107); Globulin 3.7 g/dL (1.3-4.6); Glucose 176 mg/dL (65-115); Osmolality Calculated 285 mOsm/kg (285-295); Potassium 4.3 mmol/L (3.5-5.1); Sodium 134 mmol/L (136-145); Total Bilirubin 0.2 mg/dL (0.15-1.2); Total Protein 6.2 g/dL (6.6-8.7)
[2020-05-02 13:33] LABS: Erythrocyte Sedimentation Rate 106 mm/hr (0-10)
== END 2020-05-02 11:29 | disposition home or self-care (01) ==
PROVIDERS: PCP Family Medicine; Visit Provider Internal Medicine
DX: M86.9 Osteomyelitis, unspecified (principal)
CPT/HCPCS: 80053; 80202; 85025; 85651

== ENCOUNTER 2020-05-04 13:55 | Outpatient (CLI) | payer MEDICARE, MEDICAID, SELFPAY | END 2020-05-04 13:56 | disposition home or self-care (01) | LOC: WOUND 13:56 | PROVIDERS: PCP Family Medicine; Visit Provider Thoracic Surgery (Cardiothoracic Vascular Surgery) | DX: E11.621 Type 2 diabetes mellitus with foot ulcer (principal); L97.513 Non-pressure chronic ulcer of other part of right foot with necrosis of muscle; Z89.421 Acquired absence of other right toe(s) | CPT/HCPCS: 11043 ==

== ENCOUNTER → 2020-05-05 15:01 | Outpatient (BNVA) | payer MEDICARE, MEDICAID, SELFPAY | PROVIDERS: PCP Family Medicine; Referring Provider Thoracic Surgery (Cardiothoracic Vascular Surgery); Visit Provider Podiatrist Foot & Ankle Surgery | DX: M86.171 Other acute osteomyelitis, right ankle and foot (principal); L89.159 Pressure ulcer of sacral region, unspecified stage; N18.9 Chronic kidney disease, unspecified | CPT/HCPCS: 73630 ==

== ENCOUNTER 2020-05-06 11:36 | Outpatient (CLI) | payer MEDICARE, MEDICAID, SELFPAY ==
[2020-05-06 13:01] LABS: Vancomycin Trough 17.6 ug/mL (10-15)
== END 2020-05-06 11:37 | disposition home or self-care (01) ==
PROVIDERS: PCP Family Medicine; Visit Provider Internal Medicine
DX: M86.9 Osteomyelitis, unspecified (principal)
CPT/HCPCS: 80202

== ENCOUNTER 2020-05-09 11:40 | Outpatient (CLI) | payer MEDICARE, SELFPAY ==
[2020-05-09 12:53] LABS: Vancomycin Trough 19.9 ug/mL (10-15)
== END 2020-05-09 11:41 | disposition home or self-care (01) ==
LOC: LAB 11:48
PROVIDERS: Visit Provider Internal Medicine
DX: Z79.2 Long term (current) use of antibiotics (principal); Z51.81 Encounter for therapeutic drug level monitoring
CPT/HCPCS: 80202

== ENCOUNTER → 2020-05-09 12:25 | Outpatient (BNVA) | payer MEDICARE, MEDICAID, SELFPAY | PROVIDERS: PCP Family Medicine; Visit Provider Podiatrist Foot & Ankle Surgery | DX: Z01.812 Encounter for preprocedural laboratory examination (principal); M86.171 Other acute osteomyelitis, right ankle and foot | CPT/HCPCS: 87635 ==

== ENCOUNTER 2020-05-10 05:50 | Day surgery (SDC) | payer MEDICARE, MEDICAID, SELFPAY ==
[2020-05-09 17:14] VITALS: BMI 22.3
[2020-05-10] VITALS (7 sets, daily range): BP systolic 118–144; BP diastolic 48–94; PULSE 87–98; RESP 16–18; TEMP 36.2–36.3; O2SAT 97–99
--- NOTE | 2020-05-10 06:27 | P.HPUD_ITS ---
Surgery/Procedure H&P Update DATE OF PROCEDURE: May 10, 2020 DATE H&P PERFORMED: 05/02/20 H&P UPDATE INFORMATION: I have reviewed H&P completed within last 30 days, I have examined patient prior to procedure, No changes to prior documentation and H&P is in [facility] EMR on date indicated PREOP DIAGNOSIS: Osteomyelitis right foot PRIMARY INDICATION FOR PROCEDURE: Osteomyelitis right foot PLANNED PROCEDURE: Operation Date: 05/10/20 07:00 Proposed Procedures Transmetatarsal imitation right foot 37642 L97.524(Right) - Júnior Lazaro DPM
--- NOTE | 2020-05-10 06:39 | PM.OP ---
Operative Report Date of procedure: May 10, 2020 Pre-op Diagnosis: Osteomyelitis right foot Post-op diagnosis: same Post-op Findings: Devitalized soft tissue and bone right foot Procedure Done: Right transmetatarsal amputation CPT code 53949 Implants: 2-0 Vicryl, 3-0 nylon Specimens removed/disposition: Right third metatarsal head sent to microbiology for Gram stain and culture Pathology: Right third, fourth and fifth toe sent to pathology for permanent Surgeon: Júnior Lazaro D.P.M. Corporate Financial Analyst: Jose Luis Anesthesia: MAC Estimated blood loss: 25 mL Tourniquet time: 31 minutes IV fluids: None Urine output: None Complications: None Findings: Devitalized soft tissue and bone bones that were nonviable include the third and fourth metatarsal heads right foot Condition: stable Disposition: PACU Brief History: Mr. Espinal is a 84-year-old insulin-dependent diabetic male presenting with osteomyelitis to the right forefoot, came as a referral from wound care currently receiving IV antibiotics via PICC line, prior vascular studies 0.9 JOSELYN bilaterally. Duplex study done April 152020. History of right first and second toe amputation. Right second toe amputation was performed at [facility] March 2020. He presents with a wound at his right forefoot that extends to bone. He resides at [facility]. I spoke with his son Eben this morning he is aware of his right foot infection. He approved today's surgery and states that it is reasonable to proceed with right transmetatarsal amputation. We discussed continuing PICC line for at least 2 weeks postoperatively and monitoring the surgical site as well as trending labs for inflammatory markers. Procedure: Under mild sedation the patient was brought to the operating room and placed on the operating table in supine position. A timeout was performed. Anesthesia was then administered by the anesthesia service. Local anesthesia injected by myself consisting of 25 cc of one-to-one mixture 1% lidocaine and 0.5% Marcaine plain and a right ankle block fashion. Well-padded pneumatic tourniquet applied to the right ankle. Right lower extremity was scrubbed, prepped and draped utilizing normal aseptic technique. Right foot was elevated and right ankle tourniquet inflated to 250 mmHg. [place] incision medial lateral maintaining a long plantar flap was performed down to bone with a #10 blade at the right forefoot and the metatarsals 1 through 5 were freed from their soft tissue and periosteal attachments this was then transected maintaining the metatarsal parabola utilizing sagittal saw passing operative field. The right third metatarsal head was dusky and robles and of poor density this was sent to microbiology for Gram stain and culture. The right third, fourth and fifth toes sent to pathology for permanent. Incision site was flushed with copious amounts of sterile saline solution. Extensor and flexor tendons transected at the most proximal margin under traction and bleeders were ligated and cauterized as necessary. There were healthy skin bleeding margins and viable soft tissue margins were reapproximated with closure of the deep fascial layer utilizing 2-0 Vicryl and skin closed with 3-0 nylon. Tourniquet was deflated and a prompt hyperemic response is noted to the right distal transmetatarsal amputation site. Mid incision quarter-inch Juan Antonio drain was applied. Dressings consisting of Adaptic, sterile 4 x 4, Kerlix, ABD pad and Jhoan wrap to the right lower extremity. Patient tolerated the procedure and anesthesia well was transferred to the PACU with vital signs stable and vascular status intact. Following a period of postoperative monitoring he will be discharged back to his [facility]. Is to remain strict nonweightbearing to the right foot and elevate the right foot at all times while at rest. Will follow-up this 05/13/2020 at 10 AM in podiatry clinic for his first dressing change.
--- NOTE | 2020-05-10 06:45 | ANES.PREANE2 ---
Pre-Anesthetic Assessment Pre-Anesthetic Assessment: Height/Weight: Height 1.8 m Weight 72.575 kg Temp Pulse Resp BP Pulse Ox 97.2 F L 94 18 141/67 99 05/10/20 06:28 05/10/20 06:23 05/10/20 06:23 05/10/20 06:23 05/10/20 06:23 Preop Diagnosis: Osteomyelitis right foot Proposed Procedure: Operation Date: 05/10/20 07:00 Proposed Procedures p Amputation of left foot with necrosis of bone 25701 L97.524(Right) - Júnior Lazaro, DPM Was Beta Edmar taken within 24 hours: N/A Last intake: Intake Last Liquid Date 05/09/20 Last Liquid Time 18:00 Last Solid Date 05/09/20 Last Solid Time 18:00 Social: Social History: No alcohol and No tobacco Exam: Pre-Anes Outpt Exam: alert, oriented x 3 and clear to auscultation bilaterally Additional Exam Findings (including area of procedure): Irregular rate/rhythm Airway: Submandibular: WNL Cervical ROM: WNL MP: 2 Dentition: Chipped Additional comments: Profound dental disease throughout Pulmonary: Pulmonary: COPD and Cough CV/HEM: CV/HEM: Afib and HTN : : Chronic renal Insufficiency Hepatic: Hepatic: None reported GI: GI: None reported Metabolic: Metabolic: DM Musc/skel: Musc/skel: OA/DJD Neuropsych: Neuropsych: None reported Anesthetic Plan: ASA status: 4 Anesthesia: MAC PFSH Anesthesia PFSH: Medical History Blind left eye BPH (benign prostatic hyperplasia) CAD (coronary artery disease) Cellulitis Chronic kidney disease Constipation Diabetes mellitus, type II Elevated lactic acid level Frequent falls History of stroke Hypertension Osteoarthritis Peripheral arterial disease Right foot ulcer Surgical History 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 History of appendectomy History of cholecystectomy History of eye surgery History of partial ray amputation of second toe of right foot unknown if partial or complete, done in [place] possibly sometime recently though date unknown as of 04/14/20 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
[2020-05-10] MEDS: sodium chloride 0.9% 1,000 ML 30 ML IV (06:48)
[2020-05-10] MEDS: insulin regular-human 100 units/1 mL 6 UNIT IVP (07:08)
[2020-05-10 07:21] LABS: Glucose Point of Care 223 mg/dL (70-110)
[2020-05-10] MEDS: lidocaine 1% INJ 20 mL SUBCUT (07:37)
[2020-05-10] MEDS: HYDROcodone-acetaminophen 5-325 mg Tablet 1 TAB PO (09:02)
--- NOTE | 2020-05-10 10:16 | ANE.PACU2 ---
Inpatient post-anesthesia follow up: Airway intact: Yes Vital signs: Temperature 97.2 F Pulse Rate 98 Respiratory Rate 18 Blood Pressure 144/48 Pulse Oximetry 97 Oxygen Delivery Me thod Room Air Oxygen Flow Rate 6 Fraction of Inspir ed Oxygen Hydration adequate: Yes Nausea and vomiting: No Pain level: 1 Mental status: Baseline
== END 2020-05-10 09:40 | disposition home or self-care (01) ==
PROVIDERS: PCP Family Medicine; Visit Provider Podiatrist Foot & Ankle Surgery
PROC: (CPT 28805; principal; 2020-05-10 07:00)
DX: M86.171 Other acute osteomyelitis, right ankle and foot (principal); J44.9 Chronic obstructive pulmonary disease, unspecified; I48.91 Unspecified atrial fibrillation; M19.90 Unspecified osteoarthritis, unspecified site; N40.0 Benign prostatic hyperplasia without lower urinary tract symptoms; I25.10 Atherosclerotic heart disease of native coronary artery without angina pectoris; E11.22 Type 2 diabetes mellitus with diabetic chronic kidney disease; I12.9 Hypertensive chronic kidney disease with stage 1 through stage 4 chronic kidney disease, or unspecified chronic kidney disease; N18.9 Chronic kidney disease, unspecified; Z86.73 Personal history of transient ischemic attack (TIA), and cerebral infarction without residual deficits
CPT/HCPCS: 28805; 36416; 82962; 87070; 87176; 87205; 88305; 96374; J0690; J1815; J2704; J3010; J3490; J7030

== ENCOUNTER → 2020-05-13 11:33 | Outpatient (BNVA) | payer MEDICARE, MEDICAID, SELFPAY | PROVIDERS: PCP Family Medicine; Visit Provider Podiatrist Foot & Ankle Surgery | DX: M86.171 Other acute osteomyelitis, right ankle and foot (principal); Z98.890 Other specified postprocedural states; Z89.421 Acquired absence of other right toe(s) | CPT/HCPCS: 73630 ==

== ENCOUNTER 2020-05-16 12:28 | Outpatient (CLI) | payer MEDICARE, MEDICAID, SELFPAY ==
[2020-05-16 13:35] LABS: Vancomycin Trough 21.4 ug/mL (10-15)
== END 2020-05-16 12:29 | disposition home or self-care (01) ==
LOC: LAB 12:30
PROVIDERS: PCP Family Medicine; Visit Provider Internal Medicine
DX: M86.171 Other acute osteomyelitis, right ankle and foot (principal)
CPT/HCPCS: 80202

== ENCOUNTER 2020-05-18 07:01 | Outpatient (CLI) | payer MEDICARE, MEDICAID, SELFPAY ==
[2020-05-18 07:54] LABS: Vancomycin Random 14.5 ug/mL (20.0-40.0)
== END 2020-05-18 07:02 | disposition home or self-care (01) ==
LOC: LAB 07:09
PROVIDERS: PCP Family Medicine; Visit Provider Internal Medicine
DX: M86.9 Osteomyelitis, unspecified (principal)
CPT/HCPCS: 80202

== ENCOUNTER 2020-05-23 06:32 | Outpatient (CLI) | payer MEDICARE, SELFPAY ==
[2020-05-23 06:58] LABS: Basophils % 0.4 %; Eosinophils # 0.5 10^3/uL (0.0-0.8); Eosinophils % 6.7 %; Hematocrit 30.8 % (42.0-52.0); Hemoglobin 9.5 g/dL (11.7-16.6); Lymphocytes # 2.8 10^3/uL (0.8-4.8); Lymphocytes % 41.1 %; Mean Corpuscular HGB Conc 30.8 g/dL (30.0-36.0); Mean Corpuscular Hemoglobin 29.2 pg (28.0-34.0); Mean Corpuscular Volume 94.8 fL (80-94); Mean Platelet Volume 9.5 fL (7.4-10.4); Monocytes # 0.7 10^3/uL (0.2-0.9); Monocytes % 10.8 %; Neutrophils # 2.74 10^3/uL (1.8-7.7); Neutrophils % 40.6 %; Nucleated Red Blood Cells % 0 %; Platelet Count 360 10^3/cmm (130-400); Red Blood Count 3.25 10^6/uL (4.1-5.3); Red Cell Distribution Width 15.3 % (12.1-15.1); White Blood Count 6.8 10^3/uL (4.0-10.0)
[2020-05-23 07:20] LABS: Alanine Aminotransferase 27 U/L (0-41); Albumin Level 2.6 g/dL (3.5-5.2); Alkaline Phosphatase 180 IU/L (40-130); Anion Gap 15.5 (5-19); Aspartate Amino Transferase 21 U/L (0-40); Blood Urea Nitrogen 23 mg/dL (8-23); Calcium 8.2 mg/dL (8.5-10.5); Carbon Dioxide 20 mmol/L (22-29); Chloride 105 mmol/L (98-107); Globulin 3.7 g/dL (1.3-4.6); Glucose 164 mg/dL (65-115); Osmolality Calculated 289 mOsm/kg (285-295); Potassium 4.5 mmol/L (3.5-5.1); Sodium 136 mmol/L (136-145); Total Bilirubin 0.4 mg/dL (0.15-1.2); Total Protein 6.3 g/dL (6.6-8.7)
[2020-05-23 08:01] LABS: Erythrocyte Sedimentation Rate 58 mm/hr (0-10)
[2020-05-23 11:36] LABS: Vancomycin Random 23.1 ug/mL (20.0-40.0)
== END 2020-05-23 06:33 | disposition home or self-care (01) ==
LOC: LAB 06:36
PROVIDERS: Visit Provider Internal Medicine
DX: M86.9 Osteomyelitis, unspecified (principal)
CPT/HCPCS: 80053; 80202; 85025; 85651

== ENCOUNTER 2020-06-02 10:57 | Outpatient (CLI) | payer MEDICARE, MEDICAID, SELFPAY ==
[2020-06-02 11:50] LABS: Vancomycin Random 11.3 ug/mL (20.0-40.0)
== END 2020-06-02 10:58 | disposition home or self-care (01) ==
LOC: LAB 11:01
PROVIDERS: PCP Family Medicine; Visit Provider Internal Medicine
DX: M86.9 Osteomyelitis, unspecified (principal)
CPT/HCPCS: 80202

== ENCOUNTER 2020-06-06 13:27 | Outpatient (CLI) | payer MEDICARE, MEDICAID, SELFPAY ==
[2020-06-06 14:05] LABS: Basophils % 0.5 %; Eosinophils # 0.6 10^3/uL (0.0-0.8); Eosinophils % 7.6 %; Hematocrit 34.2 % (42.0-52.0); Hemoglobin 10.7 g/dL (11.7-16.6); Lymphocytes # 2.8 10^3/uL (0.8-4.8); Lymphocytes % 33.8 %; Mean Corpuscular HGB Conc 31.3 g/dL (30.0-36.0); Mean Corpuscular Hemoglobin 29.9 pg (28.0-34.0); Mean Corpuscular Volume 95.5 fL (80-94); Mean Platelet Volume 9.6 fL (7.4-10.4); Monocytes # 0.8 10^3/uL (0.2-0.9); Monocytes % 9.4 %; Neutrophils # 4.02 10^3/uL (1.8-7.7); Neutrophils % 48.3 %; Nucleated Red Blood Cells % 0 %; Platelet Count 314 10^3/cmm (130-400); Red Blood Count 3.58 10^6/uL (4.1-5.3); White Blood Count 8.3 10^3/uL (4.0-10.0)
[2020-06-06 14:55] LABS: Alanine Aminotransferase 25 U/L (0-41); Albumin Level 3.6 g/dL (3.5-5.2); Alkaline Phosphatase 233 IU/L (40-130); Anion Gap 14.5 (5-19); Aspartate Amino Transferase 17 U/L (0-40); Blood Urea Nitrogen 24 mg/dL (8-23); Calcium 8.6 mg/dL (8.5-10.5); Carbon Dioxide 23 mmol/L (22-29); Chloride 101 mmol/L (98-107); Globulin 3.4 g/dL (1.3-4.6); Glucose 88 mg/dL (65-115); Osmolality Calculated 283 mOsm/kg (285-295); Potassium 3.5 mmol/L (3.5-5.1); Sodium 135 mmol/L (136-145); Total Bilirubin 0.5 mg/dL (0.15-1.2)
[2020-06-06 15:08] LABS: Erythrocyte Sedimentation Rate 52 mm/hr (0-10)
[2020-06-06 15:16] LABS: Vancomycin Trough 14.2 ug/mL (10-15)
== END 2020-06-06 13:28 | disposition home or self-care (01) ==
LOC: LAB 13:40
PROVIDERS: Visit Provider Internal Medicine
DX: M86.171 Other acute osteomyelitis, right ankle and foot (principal)
CPT/HCPCS: 80053; 80202; 85025; 85651

== ENCOUNTER 2020-06-09 10:30 | Outpatient (CLI) | payer MEDICARE, MEDICAID, SELFPAY ==
[2020-06-09 12:12] LABS: Vancomycin Trough 16.9 ug/mL (10-15)
== END 2020-06-09 10:31 | disposition home or self-care (01) ==
LOC: LAB 10:35
PROVIDERS: Visit Provider Internal Medicine
DX: A49.02 Methicillin resistant Staphylococcus aureus infection, unspecified site (principal)
CPT/HCPCS: 80202

== ENCOUNTER 2020-06-13 14:08 | Outpatient (CLI) | payer MEDICARE, MEDICAID, SELFPAY ==
[2020-06-13 14:50] LABS: Basophils % 0.4 %; Eosinophils # 0.3 10^3/uL (0.0-0.8); Eosinophils % 4.5 %; Hematocrit 32.3 % (42.0-52.0); Hemoglobin 10.2 g/dL (11.7-16.6); Lymphocytes # 2.5 10^3/uL (0.8-4.8); Lymphocytes % 33.1 %; Mean Corpuscular HGB Conc 31.6 g/dL (30.0-36.0); Mean Corpuscular Hemoglobin 29.9 pg (28.0-34.0); Mean Corpuscular Volume 94.7 fL (80-94); Mean Platelet Volume 9.8 fL (7.4-10.4); Monocytes # 0.7 10^3/uL (0.2-0.9); Monocytes % 9.6 %; Neutrophils # 3.86 10^3/uL (1.8-7.7); Neutrophils % 52.1 %; Nucleated Red Blood Cells % 0 %; Platelet Count 296 10^3/cmm (130-400); Red Blood Count 3.41 10^6/uL (4.1-5.3); Red Cell Distribution Width 16.2 % (12.1-15.1); White Blood Count 7.4 10^3/uL (4.0-10.0)
[2020-06-13 15:27] LABS: Alanine Aminotransferase 35 U/L (0-41); Albumin Level 3.8 g/dL (3.5-5.2); Alkaline Phosphatase 214 IU/L (40-130); Anion Gap 15.9 (5-19); Aspartate Amino Transferase 24 U/L (0-40); Blood Urea Nitrogen 33 mg/dL (8-23); Calcium 8.3 mg/dL (8.5-10.5); Carbon Dioxide 20 mmol/L (22-29); Chloride 105 mmol/L (98-107); Globulin 3.1 g/dL (1.3-4.6); Glucose 192 mg/dL (65-115); Osmolality Calculated 296 mOsm/kg (285-295); Potassium 3.9 mmol/L (3.5-5.1); Sodium 137 mmol/L (136-145); Total Bilirubin 0.6 mg/dL (0.15-1.2); Total Protein 6.9 g/dL (6.6-8.7)
[2020-06-13 15:28] LABS: Vancomycin Trough 17.4 ug/mL (10-15)
[2020-06-13 16:13] LABS: Erythrocyte Sedimentation Rate 48 mm/hr (0-10)
== END 2020-06-13 14:09 | disposition home or self-care (01) ==
LOC: LAB 14:14
PROVIDERS: Visit Provider Internal Medicine
DX: Z51.81 Encounter for therapeutic drug level monitoring (principal)
CPT/HCPCS: 80053; 80202; 85025; 85651

== ENCOUNTER 2020-06-22 10:30 | Outpatient (CLI) | payer MEDICARE, SELFPAY | END 2020-06-22 10:31 | disposition home or self-care (01) | LOC: SPT 10:31 | PROVIDERS: PCP Family Medicine; Visit Provider Podiatrist Foot & Ankle Surgery | DX: Z46.89 Encounter for fitting and adjustment of other specified devices (principal); L97.512 Non-pressure chronic ulcer of other part of right foot with fat layer exposed; L97.514 Non-pressure chronic ulcer of other part of right foot with necrosis of bone; E11.42 Type 2 diabetes mellitus with diabetic polyneuropathy; Z79.4 Long term (current) use of insulin; N18.30 Chronic kidney disease, stage 3 unspecified | CPT/HCPCS: 97760; L4361 ==

== ENCOUNTER 2020-07-06 20:17 | Outpatient (CLI) | payer MEDICARE, MEDICAID, SELFPAY ==
[2020-07-06 21:02] LABS: Anion Gap 14.4 (5-19); Blood Urea Nitrogen 26 mg/dL (8-23); Calcium 8.2 mg/dL (8.5-10.5); Carbon Dioxide 22 mmol/L (22-29); Chloride 102 mmol/L (98-107); Glucose 297 mg/dL (65-115); Osmolality Calculated 294 mOsm/kg (285-295); Potassium 4.4 mmol/L (3.5-5.1); Sodium 134 mmol/L (136-145)
== END 2020-07-06 20:18 | disposition home or self-care (01) ==
LOC: LAB 20:22
PROVIDERS: PCP Family Medicine; Visit Provider Internal Medicine
DX: E11.9 Type 2 diabetes mellitus without complications (principal)
CPT/HCPCS: 80048

== ENCOUNTER 2020-09-09 18:22 | Emergency (ER) | payer MEDICARE, MEDICAID, SELFPAY ==
[2020-09-09 18:50] VITALS: BP 142/80; PULSE 78; RESP 15; TEMP 36.7; O2SAT 95; BMI 25.1
--- NOTE | 2020-09-09 22:49 | ED_ITS ---
HPI - General Adult General: Chief complaint: General Medical Stated complaint: Vomitting\ Blood Sugar Low\Cough Time Seen by Provider: 09/09/20 22:48 History of Present Illness: HPI narrative: 85-year-old male patient comes in today for complaints of of malaise. Patient appears well. Patient appears no acute distress. Patient talks without any difficulty. 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 Patient has lost several toes. Patient does have a wound to his right foot that is healing. Spouse takes care of the wounds and reports that the worst one is on the right foot. Patient denies any other difficulties. Patient denies any chest pain or difficulty breathing. Patient does report occasional constipation. 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 History of appendectomy History of cholecystectomy History of eye surgery History of partial ray amputation of second toe of right foot unknown if partial or complete, done in [place] possibly sometime recently though date unknown as of 04/14/20 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, Dr De Paz Family History Other CAD (coronary artery disease) Diabetes Social History Smoking and tobacco status: never smoked Alcohol intake: never Household members: spouse and children Marital status: Physical Exam Const: COMMON NORMALS: no acute distress and patient oriented x3 GENERAL APPEARANCE: cooperative HENMT: COMMON NORMALS: normocephalic, TM's normal bilaterally and Normal external nose present HEAD & SCALP: normal to inspection and normocephalic NOSE: Normal external nose present TYMPANIC MEMBRANE: TM's normal bilaterally MOUTH: Normal oral and palatal mucosa present THROAT: posterior oropharynx normal Eye: GENERAL EYE: appearance normal, both eyes and all related structures Neck/C-Spine: COMMON NORMALS: full ROM Lymph: LYMPHATIC: no lymphadenopathy noted Chest: COMMONS NORMALS: normal inspection of the chest Resp: COMMON NORMALS: normal respiratory effort and clear to auscultation bilaterally EFFORT & INSPECTION: Yes able to speak in complete sentences AUSCULTATION: clear to auscultation bilaterally Cardio: COMMON NORMALS: regular rate and regular rhythm RATE: regular rate RHYTHM: regular rhythm GI: COMMON NORMALS: non-tender : COMMON NORMALS: Yes no CVA tenderness BLADDER/KIDNEY EXAM: Yes no CVA tenderness Back/Pelvis: COMMON NORMALS: no CVA tenderness and thoracic and lumbar spine normal to inspection Extremity: COMMON NORMALS: normal to inspection OTHER: Wound to the right lateral foot has good granulation there is some mild white eschar but with pink granulation in the center of the wound. Neuro: COMMON NORMALS: patient oriented x3 and moves all extremities Psych: COMMON NORMALS: mental status grossly normal and cooperative Skin: COMMON NORMALS: no rashes or lesions noted GENERAL SKIN EXAM: no rashes or lesions noted Course 2 Vital Signs: Vital signs: Vital Signs Temperature 98.4 F 09/10/20 03:19 Pulse Rate 95 09/10/20 03:19 Respiratory Rate 18 09/10/20 03:19 Blood Pressure 140/79 09/10/20 03:19 Pulse Oximetry 98 09/10/20 03:19 MDM - General Adult MDM Narrative: Medical decision making narrative: Patient comes in today with complaints of malaise. On exam respirations are even lungs are clear to a uscultation. Abdomen soft nontender. I evaluated the wounds to the right foot and they seem to be healing and had no sign of redness or significant necrosis. Pulses are intact to the foot. Differential diagnosis includes but not limited to urinary tract infection, COVID-19, pneumonia, uncontrolled diabetes. Laboratory values were unremarkable. Chest x-ray did note some bilateral pleural effusion mild. COVID-19 test was negative. Urinalysis had significant amount of white blood cells. [place] the patient probably has some mild fluid overload we will start him on some hydrochlorothiazide 12-1/2 mg daily. Patient will also be placed on some Cipro for the increased white blood cells in the urine. Patient is stable at this time recommended to follow-up or return to the ER for worsening symptoms. Patient and family report understanding. Lab Data: Labs: Lab Results 09/10/20 09/10/20 09/10/20 Range/Units 00:10 00:10 01:00 WBC 7.8 (4.0-10.0) 10^3/ uL RBC 4.38 (4.1-5.3) 10^6/u L Hgb 12.7 (11.7-16.6) g/dL Hct 38.7 L (42.0-52.0) % MCV 88.4 (80-94) fL MCH 29.0 (28.0-34.0) pg MCHC 32.8 (30.0-36.0) g/dL RDW 13.6 (12.1-15.1) % Plt Count 344 (130-400) 10^3/c mm MPV 9.1 (7.4-10.4) fL Neut % (Auto) 55.3 % Lymph % (Auto) 32.5 % [place] % (Auto) 8.6 % Eos % (Auto) 2.7 % Baso % (Auto) 0.5 % Neut # (Auto) 4.28 (1.8-7.7) 10^3/u L Lymph # (Auto) 2.5 (0.8-4.8) 10^3/u L [place] # (Auto) 0.7 (0.2-0.9) 10^3/u L Eos # (Auto) 0.2 (0.0-0.8) 10^3/u L Baso # (Auto) 0.0 (0.0-0.1) 10^3/u L Nucleated RBC % (a uto) 0 % Nucleated RBCs # 0.0 /100WBC Sodium 138 (136-145) mmol/L Potassium 4.0 (3.5-5.1) mmol/L Chloride 103 (98-107) mmol/L Carbon Dioxide 22 (22-29) mmol/L Anion Gap 17.0 (5-19) BUN 18 (8-23) mg/dL Creatinine 1.3 H (0.7-1.2) mg/dL GFR Calculation Not Reportable Glucose 125 H (65-115) mg/dL Calculated Osmolal ity 289 (285-295) mOsm/k g Calcium 9.2 (8.5-10.5) mg/dL Total Bilirubin 0.9 (0.15-1.2) mg/dL AST 18 (0-40) U/L ALT 18 (0-41) U/L Alkaline Phosphata se 182 H (40-130) IU/L Total Protein 7.9 (6.6-8.7) g/dL Albumin 4.0 (3.5-5.2) g/dL Globulin 3.9 (1.3-4.6) g/dL Urine Color Yellow (Yellow) Urine Appearance Clear (CLEAR) Urine pH 5 (5-7) Ur Specific Gravit y 1.020 (1.005-1.030) Urine Protein 1+ H (Negative) Urine Glucose (UA) Norm (Normal) Urine Ketones Negative (Negative) Urine Blood Neg (Negative) Urine Nitrate Negative (Negative) Urine Bilirubin Neg (Negative) Urine Urobilinogen Norm (Negative) mg/dL Ur Leukocyte Sherri ase 1+ H (Negative) Urine RBC 0-4 H (0-2) /hpf Urine WBC 10-15 H (0-5) /hpf Ur Squamous Epith Cells 5-10 H (0-5) /hpf Amorphous Sediment Not Reportable Urine Bacteria Trace (NONE) /hpf Hyaline Casts 0-4 H /lpf Urine Mucus 2+ /hpf SARS-CoV-2 Ag (Rap id) (Negative) 09/10/20 Range/Units 02:00 WBC (4.0-10.0) 10^3/ uL RBC (4.1-5.3) 10^6/u L Hgb (11.7-16.6) g/dL Hct (42.0-52.0) % MCV (80-94) fL MCH (28.0-34.0) pg MCHC (30.0-36.0) g/dL RDW (12.1-15.1) % Plt Count (130-400) 10^3/c mm MPV (7.4-10.4) fL Neut % (Auto) % Lymph % (Auto) % [place] % (Auto) % Eos % (Auto) % Baso % (Auto) % Neut # (Auto) (1.8-7.7) 10^3/u L Lymph # (Auto) (0.8-4.8) 10^3/u L [place] # (Auto) (0.2-0.9) 10^3/u L Eos # (Auto) (0.0-0.8) 10^3/u L Baso # (Auto) (0.0-0.1) 10^3/u L Nucleated RBC % (a uto) % Nucleated RBCs # /100WBC Sodium (136-145) mmol/L Potassium (3.5-5.1) mmol/L Chloride (98-107) mmol/L Carbon Dioxide (22-29) mmol/L Anion Gap (5-19) BUN (8-23) mg/dL Creatinine (0.7-1.2) mg/dL GFR Calculation Glucose (65-115) mg/dL Calculated Osmolal ity (285-295) mOsm/k g Calcium (8.5-10.5) mg/dL Total Bilirubin (0.15-1.2) mg/dL AST (0-40) U/L ALT (0-41) U/L Alkaline Phosphata se (40-130) IU/L Total Protein (6.6-8.7) g/dL Albumin (3.5-5.2) g/dL Globulin (1.3-4.6) g/dL Urine Color (Yellow) Urine Appearance (CLEAR) Urine pH (5-7) Ur Specific Gravit y (1.005-1.030) Urine Protein (Negative) Urine Glucose (UA) (Normal) Urine Ketones (Negative) Urine Blood (Negative) Urine Nitrate (Negative) Urine Bilirubin (Negative) Urine Urobilinogen (Negative) mg/dL Ur Leukocyte Sherri ase (Negative) Urine RBC (0-2) /hpf Urine WBC (0-5) /hpf Ur Squamous Epith Cells (0-5) /hpf Amorphous Sediment Urine Bacteria (NONE) /hpf Hyaline Casts /lpf Urine Mucus /hpf SARS-CoV-2 Ag (Rap id) Negative (Negative) Discharge Plan Discharge Patient Disposition: Home Clinical Impression: Pleural effusion, Acute UTI (urinary tract infection) Condition: Stable Prescriptions: New hydrochlorothiazide 12.5 mg tablet 12.5 mg PO DAILY Qty: 14 RF: 0 ciprofloxacin HCl 250 mg tablet 250 mg PO BID Qty: 14 RF: 0 No Action bisacodyl [Dulcolax (bisacodyl)] 10 mg suppository 10 mg PA DAILY PRNRF: 0 magnesium hydroxide [Milk of Magnesia] 400 mg/5 mL suspension 15 ml PO BID PRNRF: 0 (DME) short cam boot weight bearing See Rx Instructions .Route .MEDSUPPLY Qty: 1 RF: 0 hydrocodone-acetaminophen [Newborn] 5-325 mg tablet 1 tab PO Q8H PRN (Reason: pain) 7 Days Qty: 21 RF: 0 doxycycline hyclate 100 mg tablet 100 mg PO BID 14 Days Qty: 28 RF: 0 tamsulosin 0.4 mg capsule 0.4 mg PO BID RF: 0 amlodipine 10 mg Tablet 10 mg PO DAILY RF: 0 Humulin R Regular U-100 Insuln 100 unit/mL Solution 12 unit SUBCUT AC RF: 0 Lantus U-100 Insulin 100 unit/mL Solution 30 unit SUBCUT QPM RF: 0 Discharge Orders: Discharge ED (Routine); Ordered 09/10/20 Ordered By: Yeyo Mckeon Referrals: Carlos Nagy MD [Primary Care Provider] - Discharge Diet: Usual diet Discharge Activity: Increase activity as tolerated Patient Instructions: Urinary Tract Infection in Men (ED), Opioid Safety Activity Restrictions/Additional Instructions: healthy diet, take medications as directed. follow-up with primary care in one week, return to ER for worsening symptoms or new concerns Coding Level of Care Code ED Physician Assistant Primary Care for Cliff Noyola
[2020-09-10 00:23] LABS: Basophils % 0.5 %; Eosinophils # 0.2 10^3/uL (0.0-0.8); Eosinophils % 2.7 %; Hematocrit 38.7 % (42.0-52.0); Hemoglobin 12.7 g/dL (11.7-16.6); Lymphocytes # 2.5 10^3/uL (0.8-4.8); Lymphocytes % 32.5 %; Mean Corpuscular HGB Conc 32.8 g/dL (30.0-36.0); Mean Corpuscular Volume 88.4 fL (80-94); Mean Platelet Volume 9.1 fL (7.4-10.4); Monocytes # 0.7 10^3/uL (0.2-0.9); Monocytes % 8.6 %; Neutrophils # 4.28 10^3/uL (1.8-7.7); Neutrophils % 55.3 %; Nucleated Red Blood Cells % 0 %; Platelet Count 344 10^3/cmm (130-400); Red Blood Count 4.38 10^6/uL (4.1-5.3); Red Cell Distribution Width 13.6 % (12.1-15.1); White Blood Count 7.8 10^3/uL (4.0-10.0)
[2020-09-10 00:36] LABS: Alanine Aminotransferase 18 U/L (0-41); Alkaline Phosphatase 182 IU/L (40-130); Aspartate Amino Transferase 18 U/L (0-40); Blood Urea Nitrogen 18 mg/dL (8-23); Calcium 9.2 mg/dL (8.5-10.5); Carbon Dioxide 22 mmol/L (22-29); Chloride 103 mmol/L (98-107); Globulin 3.9 g/dL (1.3-4.6); Glucose 125 mg/dL (65-115); Osmolality Calculated 289 mOsm/kg (285-295); Sodium 138 mmol/L (136-145); Total Bilirubin 0.9 mg/dL (0.15-1.2); Total Protein 7.9 g/dL (6.6-8.7)
--- NOTE | 2020-09-10 00:47 | XRR_ITS ---
PROCEDURE INFORMATION: Exam: XR Abdomen Exam date and time: 09/10/2020 12:47 AM Age: 85 years old Clinical indication: Nausea and vomiting; Additional info: N/v TECHNIQUE: Imaging protocol: XR of the abdomen. Views: 2 Views. Upright and supine views. COMPARISON: CT abdomen pelvis w con* [id number] 04/14/2020 5:20 PM FINDINGS: Pleural space: Bilateral mild to moderate pleural fluid collections. Gastrointestinal tract: [id number] retained feces in the right colon. Intraperitoneal space: Normal. No free air. Bones/joints: Sternotomy wires and mediastinal clips consistent with previous CABG procedure. XR/XR acute abdomen series [id number] IMPRESSION: Bilateral mild to moderate pleural fluid collections.
[2020-09-10] MEDS: sodium chloride 0.9% 500 ML 999 ML IV (01:00)
[2020-09-10] MEDS: ondansetron 2 mg/ML SDV 2 mL 4 MG IVP (01:00)
[2020-09-10 01:56] LABS: Add Urine Microscopic? YES; Bacteria Urine TRACE /hpf; Bilirubin Urine Neg (Negative); Blood Urine Neg (Negative); Glucose Urine UA Norm (Normal); Hyaline Casts Urine 0-4 /lpf; Ketones Urine Negative (Negative); Leukocyte Esterase Urine 1+ (Negative); Mucus Urine 2+ /hpf; Nitrate Urine Negative (Negative); Protein Urine 1+ (Negative); RBC Urine 0-4 /hpf (0-2); Urine Appearance Clear (CLEAR); Urine Color Yellow (Yellow); Urobilinogen Urine Norm (Negative); pH Urine 5 (5-7)
[2020-09-10 02:32] LABS: SARS Covid-2 Antigen Negative (Negative)
[2020-09-10 03:19] VITALS: BP 140/79; PULSE 95; RESP 18; TEMP 36.9; O2SAT 98
== END 2020-09-10 03:21 | disposition home or self-care (01) ==
PROVIDERS: Emergency Medicine; Emergency Provider Nurse Practitioner Family; PCP Family Medicine
DX: N39.0 Urinary tract infection, site not specified (principal); J90 Pleural effusion, not elsewhere classified; I25.10 Atherosclerotic heart disease of native coronary artery without angina pectoris; E11.9 Type 2 diabetes mellitus without complications; Z86.73 Personal history of transient ischemic attack (TIA), and cerebral infarction without residual deficits; I10 Essential (primary) hypertension; Z95.1 Presence of aortocoronary bypass graft; Z20.822 Contact with and (suspected) exposure to COVID-19
CPT/HCPCS: 36415; 74022; 80053; 81001; 85025; 87426; 96361; 96374; 99283; J2405; J7040

== ENCOUNTER 2020-11-09 19:01 | Emergency (ER) | payer MEDICARE, MEDICAID, SELFPAY ==
[2020-11-09 19:04] VITALS: BP 140/85; PULSE 79; RESP 20; TEMP 36.8; O2SAT 99; BMI 23.8
[2020-11-09 19:08] LABS: Glucose Point of Care 65 mg/dL (70-110)
[2020-11-09 19:11] VITALS: BP 140/85; PULSE 92; RESP 16; O2SAT 98
[2020-11-09 19:26] LABS: Basophils % 0.4 %; Eosinophils # 0.2 10^3/uL (0.0-0.8); Eosinophils % 2.7 %; Hematocrit 37.5 % (42.0-52.0); Hemoglobin 12.2 g/dL (11.7-16.6); Lymphocytes # 1.5 10^3/uL (0.8-4.8); Lymphocytes % 21.6 %; Mean Corpuscular HGB Conc 32.5 g/dL (30.0-36.0); Mean Corpuscular Hemoglobin 29.2 pg (28.0-34.0); Mean Corpuscular Volume 89.7 fl (80-94); Mean Platelet Volume 8.9 fL (7.4-10.4); Monocytes # 0.7 10^3/uL (0.2-0.9); Monocytes % 10.2 %; Neutrophils # 4.55 10^3/uL (1.8-7.7); Neutrophils % 64.8 %; Nucleated Red Blood Cells % 0 %; Platelet Count 275 10^3/cmm (130-400); Red Blood Count 4.18 10^6/uL (4.1-5.3); Red Cell Distribution Width 15.9 % (12.1-15.1)
[2020-11-09] MEDS: dextrose 50% syringe 50 mL IVP (19:39)
--- NOTE | 2020-11-09 19:40 | ED_ITS ---
HPI - General Adult General: Chief complaint: General Medical Stated complaint: HYPOGLYCEMIA Time Seen by Provider: 11/09/20 19:05 Source: patient and EMS Mode of arrival: EMS Limitations: no limitations History of Present Illness: HPI narrative: 85-year-old male who has history of diabetes and on insulin. He states that his gave him insulin tonight he did not eat. He is unsure how much she actually gave him as he states that she always gives him his insulin EMS said that they believe it was 50 units but could have been 15 units. Patient became altered when they arrived his blood sugar was in the forties. They gave him D50 he is now awake alert answers all my questions appropriately and has no complaints. Denies any worsening improving factors. Associated symptoms: Deny chest pain, dyspnea, headache(s), nausea, rash or vomiting Review of Systems Const: Denies: fever(s), chills, body aches or change in appetite Eyes: Denies: blurry vision or eye discomfort ENMT: Denies: throat pain or dental pain Card: Denies: chest pain Resp: Denies: dyspnea GI: Denies: abdominal pain, nausea, vomiting or diarrhea : Denies: dysuria Musc: Denies: neck pain or back pain Skin/Breast: Denies: rash Neuro: Denies: headache(s) Psych: Denies: depression Shane/Lymph: Denies: easy bruising All/Imm: Denies: urticaria PFSH ED PFSH: Medical History Blind left eye BPH (benign prostatic hyperplasia) CAD (coronary artery disease) Cellulitis Chronic kidney disease Constipation Diabetes mellitus, type II Elevated lactic acid level Frequent falls History of stroke Hypertension Osteoarthritis Peripheral arterial disease Right foot ulcer Surgical History 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 History of appendectomy History of cholecystectomy History of eye surgery History of partial ray amputation of second toe of right foot unknown if partial or complete, done in [place] possibly sometime recently though date unknown as of 04/14/20 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, [address] De Paz Family History Other CAD (coronary artery disease) Diabetes Social History Smoking and tobacco status: never smoked Alcohol intake: never Household members: spouse and children Marital status: Physical Exam Const: COMMON NORMALS: no acute distress, patient oriented x3 and healthy appearing HENMT: COMMON NORMALS: normocephalic and atraumatic HEAD & SCALP: normocephalic and atraumatic Eye: COMMON NORMALS: Equal, round and reactive pupils present and EOMs intact bilaterally PUPIL: Yes Equal, round and reactive pupils present Neck/C-Spine: COMMON NORMALS: full ROM and supple Chest: COMMONS NORMALS: normal inspection of the chest and normal palpation of entire chest wall Resp: COMMON NORMALS: normal respiratory effort, No retractions, No use of accessory muscles and clear to auscultation bilaterally AUSCULTATION: clear to auscultation bilaterally Cardio: COMMON NORMALS: regular rate, regular rhythm and No murmurs present (Cardio) RATE: regular rate RHYTHM: regular rhythm GI: COMMON NORMALS: Normal to inspection, nondistended, normoactive bowel sounds present, Soft to palpation, non-tender and no masses PALPATION: Yes Soft to palpation Extremity: COMMON NORMALS: normal to inspection and full ROM Neuro: COMMON NORMALS: patient oriented x3, moves all extremities and no focal motor deficits Psych: COMMON NORMALS: mental status grossly normal, Normal thought process present and cooperative THOUGHT PROCESS: Normal thought process present Skin: COMMON NORMALS: no rashes or lesions noted and no wounds GENERAL SKIN EXAM: no rashes or lesions noted Course Vital Signs: Vital signs: Vital Signs Temperature 98.4 F 11/09/20 23:01 Pulse Rate 103 H 11/09/20 23:01 Respiratory Rate 16 11/09/20 23:01 Blood Pressure 143/85 11/09/20 23:01 Pulse Oximetry 95 11/09/20 23:01 MDM - General Adult MDM Narrative: Medical decision making narrative: Patient presents with hypoglycemia likely from taking his insulin and not eating. He has been well- appearing here and is glad blood sugar is stabilized. I feel he is stable for discharge at this time. Informed him if he does take his insulin he has to eat. He is stable for discharge is to follow-up with PCP and return if worsening. Lab Data: Labs: Lab Results 11/09/20 11/09/20 11/09/20 Range/Units 19:05 19:10 19:10 WBC 7.0 (4.0-10.0) 10^3/ uL RBC 4.18 (4.1-5.3) 10^6/u L Hgb 12.2 (11.7-16.6) g/dL Hct 37.5 L (42.0-52.0) % MCV 89.7 (80-94) fl MCH 29.2 (28.0-34.0) pg MCHC 32.5 (30.0-36.0) g/dL RDW 15.9 H (12.1-15.1) % Plt Count 275 (130-400) 10^3/c mm MPV 8.9 (7.4-10.4) fL Neut % (Auto) 64.8 % Lymph % (Auto) 21.6 % [place] % (Auto) 10.2 % Eos % (Auto) 2.7 % Baso % (Auto) 0.4 % Neut # (Auto) 4.55 (1.8-7.7) 10^3/u L Lymph # (Auto) 1.5 (0.8-4.8) 10^3/u L [place] # (Auto) 0.7 (0.2-0.9) 10^3/u L Eos # (Auto) 0.2 (0.0-0.8) 10^3/u L Baso # (Auto) 0.0 (0.0-0.1) 10^3/u L Nucleated RBC % (a uto) 0 % Nucleated RBCs # 0.0 /100WBC Sodium 136 (136-145) mmol/L Potassium 3.9 (3.5-5.1) mmol/L Chloride 102 (98-107) mmol/L Carbon Dioxide 21 L (22-29) mmol/L Anion Gap 16.9 (5-19) BUN 21 (8-23) mg/dL Creatinine 1.2 (0.7-1.2) mg/dL GFR Calculation Not Reportable Glucose 57 L (65-115) mg/dL POC Glucose 65 L (70-110) mg/dL Calculated Osmolal ity 283 L (285-295) mOsm/k g Calcium 8.3 L (8.5-10.5) mg/dL Total Bilirubin 0.4 (0.15-1.2) mg/dL AST 19 (0-40) U/L ALT 15 (0-41) U/L Alkaline Phosphata se 201 H (40-130) IU/L Total Protein 6.7 (6.6-8.7) g/dL Albumin 3.4 L (3.5-5.2) g/dL Globulin 3.3 (1.3-4.6) g/dL 11/09/20 11/09/20 11/09/20 Range/Units 20:03 21:14 22:06 WBC (4.0-10.0) 10^3/ uL RBC (4.1-5.3) 10^6/u L Hgb (11.7-16.6) g/dL Hct (42.0-52.0) % MCV (80-94) fl MCH (28.0-34.0) pg MCHC (30.0-36.0) g/dL RDW (12.1-15.1) % Plt Count (130-400) 10^3/c mm MPV (7.4-10.4) fL Neut % (Auto) % Lymph % (Auto) % [place] % (Auto) % Eos % (Auto) % Baso % (Auto) % Neut # (Auto) (1.8-7.7) 10^3/u L Lymph # (Auto) (0.8-4.8) 10^3/u L [place] # (Auto) (0.2-0.9) 10^3/u L Eos # (Auto) (0.0-0.8) 10^3/u L Baso # (Auto) (0.0-0.1) 10^3/u L Nucleated RBC % (a uto) % Nucleated RBCs # /100WBC Sodium (136-145) mmol/L Potassium (3.5-5.1) mmol/L Chloride (98-107) mmol/L Carbon Dioxide (22-29) mmol/L Anion Gap (5-19) BUN (8-23) mg/dL Creatinine (0.7-1.2) mg/dL GFR Calculation Glucose (65-115) mg/dL POC Glucose 207 H 220 H 231 H (70-110) mg/dL Calculated Osmolal ity (285-295) mOsm/k g Calcium (8.5-10.5) mg/dL Total Bilirubin (0.15-1.2) mg/dL AST (0-40) U/L ALT (0-41) U/L Alkaline Phosphata se (40-130) IU/L Total Protein (6.6-8.7) g/dL Albumin (3.5-5.2) g/dL Globulin (1.3-4.6) g/dL Discharge Plan Discharge Patient Disposition: Home Clinical Impression: Hypoglycemia Condition: Stable Prescriptions: No Action bisacodyl [Dulcolax (bisacodyl)] 10 mg suppository 10 mg NE DAILY PRN (Reason: Constipation) RF: 0 magnesium hydroxide [Milk of Magnesia] 400 mg/5 mL suspension 15 ml PO BID PRN (Reason: SEE PHARAMCY COMMENT) RF: 0 (DME) short cam boot weight bearing See Rx Instructions .Route .MEDSUPPLY Qty: 1 RF: 0 tamsulosin 0.4 mg capsule 0.4 mg PO BID RF: 0 amlodipine 10 mg Tablet 10 mg PO DAILY RF: 0 Humulin R Regular U-100 Insuln 100 unit/mL Solution 12 unit SUBCUT AC RF: 0 Lantus U-100 Insulin 100 unit/mL Solution 30 unit SUBCUT DAILY RF: 0 hydrochlorothiazide 12.5 mg tablet 12.5 mg PO DAILY Qty: 14 RF: 0 Discharge Orders: Discharge ED (Routine); Ordered 11/09/20 Ordered By: Ariel Richardson Referrals: Carlos Nagy MD [Primary Care Provider] - 1-3 days Discharge Diet: Advance as tolerated Discharge Activity: Resume usual activity Patient Instructions: Diabetic Hypoglycemia (ED) Coding Level of Care Code ED Executive Staff Assistant for Chg Fwd Exam Comprehensive
--- NOTE | 2020-11-09 19:55 | PC.PHAR ---
PT UNABLE TO CONFIRM MEDICATIONS. HE STATES THAT HIS TAKES CARE OF THAT FOR HIM. I TRIED TO CALL HER BUT WAS UNABLE TO REACH HER. I AM GOING BY THE MEDICATION HISTORY AND THE PHARMACY LIST.
[2020-11-09 20:07] LABS: Glucose Point of Care 207 mg/dL (70-110)
[2020-11-09 20:33] LABS: Alanine Aminotransferase 15 U/L (0-41); Albumin Level 3.4 g/dL (3.5-5.2); Alkaline Phosphatase 201 IU/L (40-130); Anion Gap 16.9 (5-19); Aspartate Amino Transferase 19 U/L (0-40); Blood Urea Nitrogen 21 mg/dL (8-23); Calcium 8.3 mg/dL (8.5-10.5); Carbon Dioxide 21 mmol/L (22-29); Chloride 102 mmol/L (98-107); Globulin 3.3 g/dL (1.3-4.6); Glucose 57 mg/dL (65-115); Osmolality Calculated 283 mOsm/kg (285-295); Potassium 3.9 mmol/L (3.5-5.1); Sodium 136 mmol/L (136-145); Total Bilirubin 0.4 mg/dL (0.15-1.2); Total Protein 6.7 g/dL (6.6-8.7)
[2020-11-09 21:09] VITALS: BP 136/74; PULSE 101; RESP 16; O2SAT 97
[2020-11-09 21:17] LABS: Glucose Point of Care 220 mg/dL (70-110)
[2020-11-09 22:11] LABS: Glucose Point of Care 231 mg/dL (70-110)
[2020-11-09 23:01] VITALS: BP 143/85; PULSE 103; RESP 16; TEMP 36.9; O2SAT 95
== END 2020-11-09 22:24 | disposition home or self-care (01) ==
PROVIDERS: Emergency Provider Emergency Medicine; PCP Family Medicine
DX: E11.649 Type 2 diabetes mellitus with hypoglycemia without coma (principal); Z79.4 Long term (current) use of insulin; I25.10 Atherosclerotic heart disease of native coronary artery without angina pectoris; Z86.73 Personal history of transient ischemic attack (TIA), and cerebral infarction without residual deficits; I10 Essential (primary) hypertension; Z95.1 Presence of aortocoronary bypass graft
CPT/HCPCS: 36416; 80053; 82962; 85025; 96374; 99284

== ENCOUNTER 2021-02-23 10:22 | Emergency (ER) | payer MEDICARE, MEDICAID, SELFPAY ==
[2021-02-23 10:32] VITALS: BP 168/75; PULSE 69; RESP 18; TEMP 36.6; O2SAT 100; BMI 24.4
[2021-02-23 10:46] VITALS: BP 160/73; PULSE 68; RESP 24; O2SAT 100
--- NOTE | 2021-02-23 10:56 | W.ED.SYNCOPE ---
HPI - Syncope General: Chief Complaint: Syncope Stated Complaint: NEAR SYNCOPAL EPISODE Time Seen by Provider: 02/23/21 10:56 History of Present Illness: HPI narrative: Mr. Espinal is an 85-year-old gentleman with significant past medical history of hypertension, diabetes, CKD, history of CABG, and polyneuropathy with history of transmetatarsal amputation of the right foot who presents to the emergency department due to near syncope. The patient endorses increased falls over the past number of weeks or perhaps longer and has nearly fallen approximately 8 times. He does not describe typical situations and it sounds like these happened randomly. The exact circumstances of the event earlier today are also unclear, he does not think that he fully fell however his recollection is poor. It is unclear if he had preceding prodrome. He has not had frequent chest pain or other changes in health. He denies recent changes in medication. Overall the course of symptoms has persisted. Intensity of episodes when present is moderate to severe. No known specific exacerbating, provoking, or alleviating factors. As separate concerns the patient endorses itching on his face and ears as well as difficulty sleeping. He also endorses occasional episodes of emesis though upon clarification this has been going on for an extended period of time. Review of Systems General: Reports: 10 or more systems reviewed and unremarkable except in HPI and below PFSH ED PFSH: Medical History Blind left eye BPH (benign prostatic hyperplasia) CAD (coronary artery disease) Cellulitis Chronic kidney disease Constipation Diabetes mellitus, type II Elevated lactic acid level Frequent falls History of stroke Hypertension Osteoarthritis Peripheral arterial disease Right foot ulcer Surgical History 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 History of appendectomy History of cholecystectomy History of eye surgery History of partial ray amputation of second toe of right foot unknown if partial or complete, done in [place] possibly sometime recently though date unknown as of 04/14/20 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, Dr De Paz Family History Other CAD (coronary artery disease) Diabetes Social History Smoking and tobacco status: never smoked Alcohol intake: never Household members: spouse and children Marital status: Physical Exam Narrative: EXAM NARRATIVE: GENERAL/CONSTITUTIONAL - chronically ill-appearing. Nontoxic Eyes - left eye cataracts, no conjunctival injection or drainage ENMT - Atraumatic external nose and ears. Moist mucous membranes NECK - supple. trachea midline CARDIOVASCULAR - normal rate and irregular rhythm. Normal peripheral perfusion RESPIRATORY -clear to auscultation bilaterally. No retractions or accessory muscle use. ABDOMEN/GI - Nontender/Nondistended. MSK - right foot transmetatarsal amputation, no evidence of complication/wounds. Extremities without obvious deformity or tenderness to palpation SKIN - Warm, Dry. No obvious skin rashes appreciated on the body. In facial region of itching there is evidence of mild dry skin/erythema however no vesicular lesions or other rash. NEURO - alert and appropriately oriented. Moves all extremities equally. Poor historian. Course ED course: - Patient was seen and evaluated by me at bedside - Patient placed on cardiac monitors, IV access obtained - Initial evaluation notable for exam as above, no focal neurologic deficits. - Labs notable for no leukocytosis, normal hemoglobin. No acute metabolic derangement to explain symptoms, creatinine similar to baseline. Delta troponin is negative - Imaging notable for negative head CT. Chest x-ray read noted, patient does not have infectious symptoms or cough. - Upon serial reexamination after treatment the patient was improved - Based on patient history, evaluation, labs, and imaging as interpreted the most likely cause of the patient's condition is unclear. I discussed potential disposition options with the patient including the need for further evaluation. Patient requests outpatient follow-up which will be messaged to classification case manager. Discussed with patient's son as well with patient's permission. - The results of ED evaluation were discussed with the patient including prescriptions and/or symptomatic cares (if applicable) including appropriate and responsible use, followup plan, and return precautions. The patient verbalized understanding and felt safe for discharge. - Patient discharged in satisfactory condition. Vital Signs: Vital signs: Vital Signs Temperature 97.8 F 02/23/21 10:32 Pulse Rate 70 02/23/21 11:46 Respiratory Rate 24 H 02/23/21 10:46 Blood Pressure 166/80 02/23/21 11:46 Pulse Oximetry 100 02/23/21 10:46 MDM - Syncope Medical Records: Attestation: I reviewed the patient's medical records. Lab Data: Attestation: I reviewed the patient's lab results. Labs: Lab Results 02/23/21 02/23/21 02/23/21 11:03 11:03 11:03 WBC 7.2 10^3/uL 10^3/ uL (4.0-10.0) RBC 4.31 10^6/uL 10^6 /uL (4.1-5.3) Hgb 13.5 g/dL g/dL (11.7-16.6) Hct 39.0 % L % (42.0-52.0) MCV 90.5 fl fl (80-94) MCH 31.3 pg pg (28.0-34.0) MCHC 34.6 g/dL g/dL (30.0-36.0) RDW 13.6 % % (12.1-15.1) Plt Count 253 10^3/cmm 10^3 /cmm (130-400) MPV 9.8 fL fL (7.4-10.4) Neut % (Auto) 54.8 % % Lymph % (Auto) 32.3 % % Brown % (Auto) 9.7 % % Eos % (Auto) 2.5 % % Baso % (Auto) 0.4 % % Neut # (Auto) 3.92 10^3/uL 10^3 /uL (1.8-7.7) Lymph # (Auto) 2.3 10^3/uL 10^3/ uL (0.8-4.8) Brown # (Auto) 0.7 10^3/uL 10^3/ uL (0.2-0.9) Eos # (Auto) 0.2 10^3/uL 10^3/ uL (0.0-0.8) Baso # (Auto) 0.0 10^3/uL 10^3/ uL (0.0-0.1) Nucleated RBC % (a uto) 0 % % Nucleated RBCs # 0.0 /100WBC /100W BC Sodium 137 mmol/L mmol/L (136-145) Potassium 4.4 mmol/L mmol/L (3.5-5.1) Chloride 103 mmol/L mmol/L (98-107) Carbon Dioxide 20 mmol/L L mmol/ L (22-29) Anion Gap 18.4 (5-19) BUN 26 mg/dL H mg/dL (8-23) Creatinine 1.3 mg/dL H mg/dL (0.7-1.2) GFR Calculation Not Reportable Glucose 232 mg/dL H mg/dL (65-115) Calculated Osmolal ity 296 mOsm/kg H mOs m/kg (285-295) Calcium 8.1 mg/dL L mg/dL (8.5-10.5) Total Bilirubin 0.8 mg/dL mg/dL (0.15-1.2) AST 15 U/L U/L (0-40) ALT 13 U/L U/L (0-41) Alkaline Phosphata se 160 IU/L H IU/L (40-130) Troponin T Baselin e 43 ng/L H ng/L (0-15) Troponin T 120 Min [place] Delta Troponin T NT-Pro-B Natriuret Pep 709 pg/mL H pg/mL (0-450) Total Protein 6.3 g/dL L g/dL (6.6-8.7) Albumin 3.6 g/dL g/dL (3.5-5.2) Globulin 2.7 g/dL g/dL (1.3-4.6) TSH 3.26 uIU/mL uIU/m L (0.27-4.20) Urine Color Urine Appearance Urine pH Ur Specific Gravit y Urine Protein Urine Glucose (UA) Urine Ketones Urine Blood Urine Nitrate Urine Bilirubin Urine Urobilinogen Ur Leukocyte Sherri ase Urine RBC Urine WBC Ur Squamous Epith Cells Amorphous Sediment Urine Bacteria 02/23/21 02/23/21 12:15 13:00 WBC RBC Hgb Hct MCV MCH MCHC RDW Plt Count MPV Neut % (Auto) Lymph % (Auto) Brown % (Auto) Eos % (Auto) Baso % (Auto) Neut # (Auto) Lymph # (Auto) Brown # (Auto) Eos # (Auto) Baso # (Auto) Nucleated RBC % (a uto) Nucleated RBCs # Sodium Potassium Chloride Carbon Dioxide Anion Gap BUN Creatinine GFR Calculation Glucose Calculated Osmolal ity Calcium Total Bilirubin AST ALT Alkaline Phosphata se Troponin T Baselin e Troponin T 120 Min [place] 44.07 ng/L H ng/L (0-15) Delta Troponin T 1.07 ABS# ABS# (0-10) NT-Pro-B Natriuret Pep Total Protein Albumin Globulin TSH Urine Color Yellow (Yellow) Urine Appearance Clear (CLEAR) Urine pH 5 (5-7) Ur Specific Gravit y 1.025 (1.005-1.030) Urine Protein Neg (Negative) Urine Glucose (UA) Norm (Normal) Urine Ketones Negative (Negative) Urine Blood 2+ H (Negative) Urine Nitrate Negative (Negative) Urine Bilirubin Neg (Negative) Urine Urobilinogen 1 mg/dL H mg/dL (Negative) Ur Leukocyte Sherri ase Negative (Negative) Urine RBC 0-4 /hpf H /hpf (0-2) Urine WBC Rare /hpf /hpf (0-5) Ur Squamous Epith Cells None /hpf /hpf (0-5) Amorphous Sediment Not Reportable Urine Bacteria Trace /hpf /hpf (NONE) EKG Data^: EKG 1: Attestation: I personally reviewed and interpreted this EKG as follows: EKG interpretation date: 02/23/21 EKG interpretation time: 12:49 Interpretation: Twelve-lead EKG shows a irregular rhythm at a rate of 67. No OR interval, QRS duration 96, QTc 441. Normal axis. Interpretation: Atrial fibrillation, nonspecific ST segment abnormalities. Patient has known atrial fibrillation. EKG 2: Attestation: I personally reviewed and interpreted this EKG as follows: EKG interpretation date: 02/23/21 EKG interpretation time: 14:22 Interpretation: Twelve-lead EKG shows an irregular rhythm at a rate of 70. No OR interval, QRS duration 108, QTc 405. Normal axis. Interpretation: Atrial fibrillation. Similar to prior Discharge Plan Discharge Patient Disposition: Home Clinical Impression: Near syncope, Dehydration, mild Condition: Stable Prescriptions: No Action bisacodyl [Dulcolax (bisacodyl)] 10 mg suppository 10 mg OR DAILY PRN (Reason: Constipation) RF: 0 magnesium hydroxide [Milk of Magnesia] 400 mg/5 mL suspension 15 ml PO BID PRN (Reason: SEE PHARAMCY COMMENT) RF: 0 (DME) short cam boot weight bearing See Rx Instructions .Route .MEDSUPPLY Qty: 1 RF: 0 tamsulosin 0.4 mg capsule 0.4 mg PO BID RF: 0 amlodipine 10 mg Tablet 10 mg PO DAILY RF: 0 Humulin R Regular U-100 Insuln 100 unit/mL Solution 12 unit SUBCUT AC RF: 0 Lantus U-100 Insulin 100 unit/mL Solution 30 unit SUBCUT DAILY RF: 0 hydrochlorothiazide 12.5 mg tablet 12.5 mg PO DAILY Qty: 14 RF: 0 Discharge Orders: Discharge ED (Routine); Ordered 02/23/21 Ordered By: Melquiades Yang Referrals: Carlos Nagy MD [Primary Care Provider] - Discharge Diet: Usual diet Discharge Activity: Resume usual activity Patient Instructions: Near Syncope (ED) Activity Restrictions/Additional Instructions: Thank you for visiting the emergency department. You were seen and evaluated for near syncope. The exact cause of your symptoms is unclear. No significant abnormality was seen. I do believe that this requires further evaluation however after discussion you are electing to have this done in the outpatient setting. I will message our classification case manager for set up. Please follow-up with your primary care provider. Please return to the emergency department for worsening symptoms, symptom recurrence, or anything else that you are concerned about and feel needs emergency department evaluation. Coding Level of Care Code ED Barback for Cliff Noyola
--- NOTE | 2021-02-23 11:04 | CT_ITS ---
WS: [id number] CT HEAD NONCONTRAST HISTORY: syncope TECHNIQUE: Contiguous axial imaging performed through the brain in 2.5 mm imaging. Bone and soft tiss ue windows. Sagittal and coronal reformats reviewed. All CT scans at [facility] use at least one of these dose optimization techniques: automated exposure control; mA and/or kV adjustment per pa tient size (includes targeted exams where dose is matched to clinical indication); or iterative recon struction. DLP: 1637.22 mGy.cm COMPARISON: 11/08/2018 No acute intracranial hemorrhage, midline shift or mass effect. Moderate bilateral symmetric atrophy. There is central and peripheral volume loss. Advanced chronic w toribio matter ischemic changes are greatest on the RIGHT. Prior lacunar infarct in the LEFT thalamus an d external capsules. Moderate cerebellar atrophy. Ventricles: Diffuse mild to moderate ventriculomegaly. Ventriculomegaly as on the basis of atrophy. Paranasal sinuses: As visualized are clear. Mastoid air cells: Well pneumatized. Calvarium and scalp: Skull is intact with no soft tissue edema or swelling. Atrophic, calcified LEFT globe. CT/CT head wo con* [id number] IMPRESSION: 1. No acute intracranial hemorrhage or edema. 2. Moderate atrophy and chronic ischemic disease with mild significant progres anamaria. 3. Mild diffuse ventriculomegaly on the basis of atrophy.
--- NOTE | 2021-02-23 11:04 | XRR_ITS ---
PROCEDURE INFORMATION: Exam: XR Chest Exam date and time: 02/23/2021 11:04 AM Age: 85 years old Clinical indication: Syncope. Prior open heart surgery. TECHNIQUE: Imaging protocol: XR of the chest. Views: 1 view. COMPARISON: CR XR chest 1V portable [id number] 04/19/2020 2:39 PM FINDINGS: Lungs: A calcified granuloma is noted at the left base. Possible subtle patchy opacities lung bases. Pleural spaces: No pleural effusion. No pneumothorax. Heart/Mediastinum: The cardiac silhouette is unchanged. No gross evidence of pneumomediastinum. Bones/joints: Median sternotomy wires are again seen. No gross fracture. XR/XR chest 1V portable [id number] IMPRESSION: Possible subtle patchy opacities lung bases. Consider CT to better characterize.
--- NOTE | 2021-02-23 11:05 | ECG_ITS ---
[facility] Test Date: 2021-02-23 Pat Name: Frank Espinal Department: Room: Gender: Male Ship Keeper: : 1935 Requested By: Melquiades Yang Order Number: [id number] Feng MD: Aleksandr Dela Cruz M.D. Measurements Intervals [place] Rate: 67 P: [place]: QRS: 39 QRSD: 100 T: 66 QT: 424 QTc: 449 Interpretive Statements ATRIAL FLUTTER/TACHYCARDIA INCOMPLETE RIGHT BUNDLE BRANCH BLOCK [90+ ms QRS DURATION, TERMINAL R IN V1/V2, 40+ ms S IN I/aVL/V4/V5/V6] MODERATE T-WAVE ABNORMALITY, CONSIDER INFERIOR ISCHEMIA [-0.1+ mV T-WAVE IN II/aVF] Compared to ECG 04/14/2020 18:03:08 Atrial fibrillation no longer present T-wave abnormality still present Possible ischemia still present Electronically Signed On 02-23-2021 20:38:44 DIET SUPERVISOR by Aleksandr Dela Cruz M.D. [id number] f
[2021-02-23 11:25] LABS: Basophils % 0.4 %; Eosinophils # 0.2 10^3/uL (0.0-0.8); Eosinophils % 2.5 %; Hemoglobin 13.5 g/dL (11.7-16.6); Lymphocytes # 2.3 10^3/uL (0.8-4.8); Lymphocytes % 32.3 %; Mean Corpuscular HGB Conc 34.6 g/dL (30.0-36.0); Mean Corpuscular Hemoglobin 31.3 pg (28.0-34.0); Mean Corpuscular Volume 90.5 fl (80-94); Mean Platelet Volume 9.8 fL (7.4-10.4); Monocytes # 0.7 10^3/uL (0.2-0.9); Monocytes % 9.7 %; Neutrophils # 3.92 10^3/uL (1.8-7.7); Neutrophils % 54.8 %; Nucleated Red Blood Cells % 0 %; Platelet Count 253 10^3/cmm (130-400); Red Blood Count 4.31 10^6/uL (4.1-5.3); Red Cell Distribution Width 13.6 % (12.1-15.1); White Blood Count 7.2 10^3/uL (4.0-10.0)
[2021-02-23 11:44] LABS: Troponin(5th) Baseline 43 ng/L (0-15)
[2021-02-23 11:45] VITALS: BP 144/102; BP 163/72; BP 166/80; PULSE 70; PULSE 78; PULSE 93
[2021-02-23 11:46] VITALS: BP 166/80; PULSE 70
[2021-02-23 12:00] LABS: Alanine Aminotransferase 13 U/L (0-41); Albumin Level 3.6 g/dL (3.5-5.2); Alkaline Phosphatase 160 IU/L (40-130); Anion Gap 18.4 (5-19); Aspartate Amino Transferase 15 U/L (0-40); Blood Urea Nitrogen 26 mg/dL (8-23); Calcium 8.1 mg/dL (8.5-10.5); Carbon Dioxide 20 mmol/L (22-29); Chloride 103 mmol/L (98-107); Globulin 2.7 g/dL (1.3-4.6); Glucose 232 mg/dL (65-115); NT Pro B Type Natriuretic Pept 709 pg/mL (0-450); Osmolality Calculated 296 mOsm/kg (285-295); Potassium 4.4 mmol/L (3.5-5.1); Sodium 137 mmol/L (136-145); Thyroid Stimulating Hormone 3.26 uIU/mL (0.27-4.20); Total Bilirubin 0.8 mg/dL (0.15-1.2); Total Protein 6.3 g/dL (6.6-8.7)
[2021-02-23 12:36] LABS: Bilirubin Urine Neg (Negative); Blood Urine 2+ (Negative); Glucose Urine UA Norm (Normal); Ketones Urine Negative (Negative); Nitrate Urine Negative (Negative); Protein Urine Neg (Negative); Specific Gravity, Urine 1.025 (1.005-1.030); Urine Appearance Clear (CLEAR); Urine Color Yellow (Yellow); Urobilinogen Urine 1 mg/dL (Negative); pH Urine 5 (5-7)
[2021-02-23 12:37] LABS: Add Urine Culture? No; Add Urine Microscopic? YES; Bacteria Urine TRACE /hpf; Leukocyte Esterase Urine Negative (Negative); RBC Urine 0-4 /hpf (0-2); WBC Urine RARE /hpf (0-5)
--- NOTE | 2021-02-23 13:05 | ECG_ITS ---
[facility] Test Date: 2021-02-23 Pat Name: Frank Espinal Department: Room: Gender: Male Senior Functional Analyst: : 1935 Requested By: Melquiades Yang Order Number: [id number] Feng MD: Aleksandr Dela Cruz M.D. Measurements Intervals Scott Rate: 67 P: [place]: QRS: 35 QRSD: 96 T: 86 QT: 425 QTc: 451 Interpretive Statements ATRIAL FIBRILLATION INCOMPLETE RIGHT BUNDLE BRANCH BLOCK [90+ ms QRS DURATION, TERMINAL R IN V1/V2, 40+ ms S IN I/aVL/V4/V5/V6] MODERATE T-WAVE ABNORMALITY, CONSIDER INFERIOR ISCHEMIA [-0.1+ mV T-WAVE IN II/aVF] Compared to ECG 02/23/2021 11:14:23 Atrial flutter no longer present T-wave abnormality still present Possible ischemia still present Electronically Signed On 02-23-2021 20:40:41 BEHAVIORAL HEALTH ASSISTANT by Aleksandr Dela Cruz M.D. [id number] f
[2021-02-23 13:33] LABS: Troponin 5 2HR 44.07 ng/L (0-15); Troponin 5 2HR Delta 1.07 ABS# (0-10)
--- NOTE | 2021-03-01 11:03 | DCPLANNER ---
Addendum entered by Lucila Mckay 07/28/21 19:00: Patient had a follow up appointment for a stress test - patient did not attend appointment. Addendum entered by Lucila Mckay 07/06/21 20:07: Patient has a stress test scheduled for Saturday, July 17, 2021 at 12:15. Centralized scheduling will call patient with appointment information. Original Note: ecommerce project manager had message to schedule some out patient tests for patient, a stress test, an echo, and a carotid duplex. ecommerce project manager faxed signed order to centralized scheduling who will call patient with appointment information. ecommerce project manager also had message to schedule a follow up appointment for patient with [facility]. ecommerce project manager called [facility], spoke with Brooke, gave clinic patients information. A follow up appointment was scheduled for March at 10:[address] Escalante. ecommerce project manager called patients and gave her the appointment information.
--- NOTE | 2021-03-29 09:36 | DCPLANNER ---
Patient has an echo and carotid ultrasound scheduled for 04.26.21. Echo is at 9:30 and the carotid is a 9:30. Centralized scheduling will call patient with appointment information.
== END 2021-02-23 15:21 | disposition home or self-care (01) ==
PROVIDERS: Emergency Provider Emergency Medicine; PCP Family Medicine
DX: R55 Syncope and collapse (principal); E86.0 Dehydration; Z79.4 Long term (current) use of insulin; I25.10 Atherosclerotic heart disease of native coronary artery without angina pectoris; E11.9 Type 2 diabetes mellitus without complications; I10 Essential (primary) hypertension; Z86.73 Personal history of transient ischemic attack (TIA), and cerebral infarction without residual deficits; Z95.1 Presence of aortocoronary bypass graft
CPT/HCPCS: 36415; 70450; 71045; 80053; 81001; 83880; 84443; 84484; 85025; 93005; 99284

== ENCOUNTER 2021-03-08 11:56 | Outpatient (CLI) | payer MEDICARE, MEDICAID, SELFPAY ==
[2021-03-08 13:04] LABS: Basophils % 0.5 %; Eosinophils # 0.3 10^3/uL (0.0-0.8); Eosinophils % 3.1 %; Hematocrit 44.4 % (42.0-52.0); Hemoglobin 14.3 g/dL (11.7-16.6); Lymphocytes # 2.9 10^3/uL (0.8-4.8); Lymphocytes % 33.1 %; Mean Corpuscular HGB Conc 32.2 g/dL (30.0-36.0); Mean Corpuscular Hemoglobin 30.6 pg (28.0-34.0); Mean Corpuscular Volume 94.9 fl (80-94); Mean Platelet Volume 9.5 fL (7.4-10.4); Monocytes # 0.8 10^3/uL (0.2-0.9); Neutrophils # 4.78 10^3/uL (1.8-7.7); Nucleated Red Blood Cells % 0 %; Platelet Count 299 10^3/cmm (130-400); Red Blood Count 4.68 10^6/uL (4.1-5.3); Red Cell Distribution Width 13.8 % (12.1-15.1); White Blood Count 8.9 10^3/uL (4.0-10.0)
[2021-03-08 13:34] LABS: Alanine Aminotransferase 9 U/L (0-41); Albumin Level 3.9 g/dL (3.5-5.2); Alkaline Phosphatase 177 IU/L (40-130); Anion Gap 15.7 (5-19); Aspartate Amino Transferase 15 U/L (0-40); Blood Urea Nitrogen 24 mg/dL (8-23); Calcium 8.9 mg/dL (8.5-10.5); Carbon Dioxide 23 mmol/L (22-29); Chloride 102 mmol/L (98-107); Chol HDL Ratio 2.95 mg/dL (1.0-5.00); Cholesterol 162 mg/dL (0-200); Free T4 Free Thyroxine 1.35 ng/dL (0.82-1.77); Globulin 3.4 g/dL (1.3-4.6); Glucose 153 mg/dL (65-115); HDL Cholesterol 55 mg/dL (60-100); LDL Cholesterol Calculated 93 mg/dL (50-129); LDL HDL Ratio 1.69 RATIO (0.00-3.22); Osmolality Calculated 289 mOsm/kg (285-295); Potassium 4.7 mmol/L (3.5-5.1); Sodium 136 mmol/L (136-145); Thyroid Stimulating Hormone 4.04 uIU/mL (0.27-4.20); Total Bilirubin 0.6 mg/dL (0.15-1.2); Total Protein 7.3 g/dL (6.6-8.7); Triglycerides 68 mg/dL (0-150)
== END 2021-03-08 11:57 | disposition home or self-care (01) ==
LOC: LAB 11:59
PROVIDERS: PCP Family Medicine; Visit Provider Nurse Practitioner Family
DX: I10 Essential (primary) hypertension (principal)
CPT/HCPCS: 80053; 80061; 84439; 84443; 85025

== ENCOUNTER 2021-04-26 08:20 | Outpatient (CLI) | payer MEDICARE, MEDICAID, SELFPAY ==
--- NOTE | 2021-04-26 08:30 | USCV_ITS ---
Frank Espinal Age: 85 Gender: M : 1935 Exam Date: 04/26/2021 08:52 Ordering Phys: Melquiades Yang MD Technologist: Gita Rodriguez [place] [facility] [place]: SYNCOPE EPISODE BP: / HR: 67 Rhythm: Sinus Technical Quality: Adequate MEASUREMENTS (Male / Female) Normal Values 2D ECHO LV Diastolic Diameter PLAX 4.1 cm 4.2 - 5.9 / 3.9 - 5.3 cm LV Systolic Diameter PLAX 3.4 cm LV Chamber Size 3.0 cm IVS Diastolic Thickness 1.0 cm 0.6 - 1.0 / 0.6 - 0.9 cm IVS Systolic Thickness 1.5 cm LVPW Diastolic Thickness 1.8 cm 0.6 - 1.0 / 0.6 - 0.9 cm LVPW Systolic Thickness 1.4 cm RV Chamber Size 3.0 cm LVOT Diameter 2.0 cm LV Ejection Fraction 2D Teich 35.7 % LV Ejection Fraction MOD 2C 40.0 % LV Ejection Fraction 2C AL 44.0 % LA Diameter 4.4 cm LA Width 3.4 cm LA Height 4.3 cm RA Width 3.4 cm RA Height 4.8 cm Aorta at Sinotubular Diameter 2.8 cm M-MODE Aortic Annulus Diameter 3.2 cm LA Ao Ratio MM 1.3 MV E Point Septal Separation 1.0 cm DOPPLER AV Peak Velocity 110.0 cm/s LVOT Peak Velocity 76.0 cm/s AV Area Cont Eq vti 2.3 cm squared AV Area Cont Eq pk 2.2 cm squared MV Area PHT 5.0 cm squared Mitral E to A Ratio 1.7 MV E' Velocity 69.5 cm/s Mitral E to MV E' Ratio 13.0 Mitral E to LV E' Lateral Ratio 14.9 Mitral E to LV E' Septal Ratio 11.5 TR Peak Velocity 149.3 cm/s TR Peak Gradient 8.9 mmHg TR Mean Velocity 106.4 cm/s TR Mean Gradient 5.0 mmHg TR Velocity Time Integral 31.1 cm TV Peak E Velocity 62.0 cm/s Right Atrial Pressure 3.0 mmHg Pulmonary Artery Systolic Pressu 11.9 mmHg PV Peak Velocity 104.0 cm/s RV Acceleration Time 0.1 s RV Ejection Time 0.4 s RV AcT/ET 0.4 FINDINGS Left Ventricle Normal left ventricular size with diminished ejection fraction of 45%. Hypokinetic mid and apical septum and anteroseptal segments Right Ventricle The right ventricle is normal in size and function. Right Atrium The right atrium is normal in size. Left Atrium Mildly increased left atrial size. Mitral Valve Thickened mitral valve. Moderate mitral valve regurgitation. Aortic Valve Thickened aortic valve. Tricuspid Valve No gross abnormalities noted Pulmonic Valve Trace pulmonary valve regurgitation. Pericardium Normal pericardium without effusion. Aorta Normal ascending aorta dimension. CONCLUSIONS Normal left ventricular size with diminished ejection fraction of 45%. Hypokinetic mid and apical septum and anteroseptal segments. Thickened mitral valve. Moderate mitral valve regurgitation. Mildly increased left atrial size. Thickened aortic valve. Trace pulmonary valve regurgitation. There is no pericardial effusion. There are no intracardiac masses. No previous study is available for comparison. Dr Edilson Escalante MD [facility] (Electronically Signed) Final Date: 26 April 2021 17:44 S
--- NOTE | 2021-04-26 08:30 | USCV_ITS ---
Frank Espinal Age: 85 Gender: M : 1935 Exam Date: 04/26/2021 09:11 Ordering Phys: Melquiades Yang MD Technologist: Gita Rodriguez Exam Location: [facility] – [place] Indication: SYNCOPAL EPISODES Risk Factors: Unknown Previous Vascular Surgery: None Right Brachial BP: / Left Brachial BP: / Right Left Velocity (cm/s) Spectral Plaque Velocity (cm/s) Spectral Plaque Syst/Diast Broadening Syst/Diast Broadening 94.80/ 12.10 Prox CCA 65.00 / 15.10 59.50/ 9.90 Mid CCA 53.60 / 14.50 63.90/ 13.20 Distal CCA 42.90 / 9.50 72.30/ 18.40 Torres Prox ICA 44.80 / 6.90 Torres 63.50/ 20.80 Mid ICA 51.80 / 16.00 60.30/ 16.00 Distal ICA 52.30 / 12.40 89.30 ECA 84.30 1.21 ICA/CCA 0.98 Antegrade Vertebral Antegrade 20.50/ 5.70 cm/s 17.00/ 6.40 cm/s Tri Subclavian Tri 71.90 80.70 FINDINGS Minimal dense plaques at the bifurcations bilaterally Intimal thickening in the common carotid arteries bilaterally. Antegrade flow in the vertebral arteries bilaterally. Normal Doppler flow velocities and ratios bilaterally CONCLUSIONS Minimal dense plaques at the bifurcations bilaterally, suggesting less than 50% stenosis, based on flow velocities. No significant stenosis in the subclavian, vertebral or external carotid arteries, based on the above findings Dr Edilson Escalante MD [facility] (Electronically Signed) Final Date: 27 April 2021 13:18 S
== END 2021-04-26 08:21 | disposition home or self-care (01) ==
LOC: RAD 08:27
PROVIDERS: PCP Family Medicine; Visit Provider Family Medicine
DX: R55 Syncope and collapse (principal); I08.0 Rheumatic disorders of both mitral and aortic valves; I65.23 Occlusion and stenosis of bilateral carotid arteries
CPT/HCPCS: 93306; 93880

== ENCOUNTER → 2021-05-02 10:19 | Outpatient (BNVA) | payer MEDICARE, MEDICAID, SELFPAY | PROVIDERS: PCP Family Medicine; Visit Provider Internal Medicine Cardiovascular Disease | DX: Z79.4 Long term (current) use of insulin (principal); I25.10 Atherosclerotic heart disease of native coronary artery without angina pectoris; I48.20 Chronic atrial fibrillation, unspecified | CPT/HCPCS: 99204 ==

== ENCOUNTER 2022-01-04 08:30 | Emergency (ER) | payer MEDICARE, MEDICAID, SELFPAY ==
[2022-01-04] VITALS (21 sets, daily range): BP systolic 146–174; BP diastolic 81–110; PULSE 68–109; RESP 10–27; TEMP 36.6; O2SAT 84–98
--- NOTE | 2022-01-04 08:44 | CT_ITS ---
WS: [id number] CT HEAD TECHNIQUE: Noncontrast CT of the head obtained from the skullbase to the vertex. CLINICAL INFORMATION: fall/ closed head injury COMPARISON: February 23, 2021 DLP: 1739.[address] scans at [facility] use at least one of these dose optimization techniques: automated e xposure control; mA and/or kV adjustment per patient size (includes targeted exams where dose is matc hed to clinical indication); or iterative reconstruction. FINDINGS: No evidence of intracranial hemorrhage or mass effect. Ventricular system and basal cisterns are zamudio nt. Moderate small vessel changes with moderate parenchymal volume loss. Vascular calcification. No e xtra-axial fluid collections. No evidence of mass or mass effect. Chronic lacunar infarct along the p osterior limb LEFT internal capsule. Partially visualized anterior nasal bone fractures. Chronic infa rct RIGHT parietal lobe with encephalomalacia unchanged from 2020. Soft tissue edema overlying the LEFT frontal calvarium. No visualized calvarial fractures. Intracrani al vascular calcification. Mastoid air cells and paranasal sinuses are well aerated. Mild mucosal thi ckening in the ethmoid air cells. Normal posterior nasopharynx. CT/CT head wo con* [id number] IMPRESSION: 1. No evidence of intracranial hemorrhage or mass effect. 2. Moderate small vessel changes. Moderate parenchymal volume loss. 3. Soft tissue edema overlying the frontal calvarium. 4. Partially visualized anterior nasal bone fractures. 5. No acute intracranial findings.
--- NOTE | 2022-01-04 08:44 | CT_ITS ---
WS: [id number] CT FACIAL BONES TECHNIQUE: Noncontrast facial bones with coronal and sagittal reformatted images. CLINICAL INFORMATION: trauma COMPARISON: None. DLP: 1739.[address] scans at [facility] [place] use at least one of these dose optimization techniques: automated e xposure control; mA and/or kV adjustment per patient size (includes targeted exams where dose is matc hed to clinical indication); or iterative reconstruction. FINDINGS: Soft tissue edema overlying the LEFT frontal calvarium and mid face. Minimally displaced anterior michael al bones LEFT greater than RIGHT nasal bone fractures. Paranasal sinuses and mastoid air cells well a erated. Mild mucosal thickening in the ethmoid air cells. Normal posterior nasopharynx. Chronic calcifications LEFT globe. RIGHT bandar bullosa. Zygoma are nor mal in appearance. No evidence of mandibular fracture dislocation. Normal pterygoid plates. Normal C1 ring. Orbits are normal in appearance. Normal lamina papyracea. Inferior orbits are normal in appear ance. Normal sphenoid wing. Partially visualized ankylosis in the upper cervical spine. CT/CT facial bones wo con* [id number] IMPRESSION: 1. Slightly displaced anterior nasal bone and nasal tip fractures. 2. No other acute facial fractures.
--- NOTE | 2022-01-04 08:44 | XRR_ITS ---
PROCEDURE INFORMATION: Exam: XR Cervical Spine Exam date and time: 01/04/2022 9:24 AM Age: 86 years old Clinical indication: Injury or trauma; Blunt trauma; Injury details: 86-year-old male brought in by EMS after a fall. Patient states he fell sometime around 9:00 last night TECHNIQUE: Imaging protocol: Radiologic exam of the cervical spine. Views: 2 or 3 views. COMPARISON: CT facial bones wo con* [id number] 01/04/2022 9:14 AM FINDINGS: Bones/joints: No fracture, malalignment or acute abnormality is seen in the cervical spine. Degenerative changes are present in the lower cervical spine with disc space narrowing and osteophytes. Soft tissues: Unremarkable. XR/XR cervical spine 3V* [id number] IMPRESSION: No acute abnormality.
--- NOTE | 2022-01-04 08:45 | ECG_ITS ---
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 Measurements Intervals Ledbetter Rate: 103 P: AK: QRS: 30 QRSD: 107 T: 68 QT: 372 QTc: 488 Interpretive Statements ATRIAL FIBRILLATION WITH RAPID VENTRICULAR RESPONSE INCOMPLETE RIGHT BUNDLE BRANCH BLOCK [90+ ms QRS DURATION, TERMINAL R IN V1/V2, 40+ ms S IN I/aVL/V4/V5/V6] NONSPECIFIC T-WAVE ABNORMALITY ABNORMAL RHYTHM ECG Compared to ECG 02/23/2021 12:47:47 Possible ischemia no longer present T-wave abnormality still present Electronically Signed On 01-04-2022 15:04:26 CDT by Luciano Tavera M.D. [email or web address]
--- NOTE | 2022-01-04 09:01 | W.ED.FALL ---
HPI - Fall General: Chief Complaint: Fall Stated Complaint: fall, nose lac Time Seen by Provider: 01/04/22 08:32 Source: patient History of Present Illness: 86-year-old male brought in by EMS after a fall. Patient states he fell sometime around 9:00 last night and laid on the floor throughout the night. He usually uses a walker is difficult to get him describe the fall exactly it sounds like he stumbled on something with walker and fell use antibiotic get himself back up he denies any extremity pain in the arms or the legs until we manipulated the legs then he has a little bit of right knee pain but it is mild at rest he has no pain. He has some swelling around the nose quite a bit of blood on the face looks like it comes from a small laceration just to the right of the bridge of the nose. He has not had any loss of consciousness or vomiting. He is not on any anticoagulants he is diabetic and hypertensive. He did not take his morning medications. Patient states he has frequent falls even with the use of the walker. At the time presentation he is awake and alert he has no focal neurologic deficits. MD complaint: fall Onset (ago): hour(s) Fall from: standing Fall witnessed: no Place fall occurred: home Loss of consciousness: None Prolonged down time: yes Symptoms prior to fall: none Context: tripped/slipped and history of frequent falls Severity: mild Associated symptoms-after fall: Reports difficulty walking and weakness; Denies abdominal pain, chest pain, confusion, headache(s), hematuria, lightheadedness, neck pain, numbness, short of breath or vertigo Review of Systems Const: Denies: fever(s), chills, body aches, change in appetite, fatigue or malaise Eyes: Denies: change in vision (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) ENMT: Denies: throat pain, ear or mastoid pain, nasal discharge or nasal congestion Card: Denies: chest pain or lightheadedness Resp: Denies: dyspnea, productive cough or non-productive cough GI: Denies: abdominal pain, nausea or vomiting : Denies: flank pain, difficulty urinating, dysuria, urinary frequency, urinary urgency or hematuria Musc: Reports: joint pain (Right knee); Denies: neck pain or back pain Skin/Breast: Denies: rash or pruritus Neuro: Reports: difficulty walking; Denies: headache(s), vertigo or confusion PFSH ED PFSH: Medical History Blind left eye BPH (benign prostatic hyperplasia) CAD (coronary artery disease) Cellulitis Chronic kidney disease Constipation Diabetes mellitus, type II Elevated lactic acid level Frequent falls History of stroke Hypertension Osteoarthritis Peripheral arterial disease Right foot ulcer Surgical History 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 History of appendectomy History of cholecystectomy History of eye surgery History of partial ray amputation of second toe of right foot unknown if partial or complete, done in [place] possibly sometime recently though date unknown as of 04/14/20 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, Dr De Paz Family History Father CAD (coronary artery disease) Grandmother Diabetes Family/Other Diabetes Denies family history of Clotting disorder Dementia Chronic kidney disease (CKD) Suicide Anesthesia complication Bleeding disorder Lung disease Cancer Stroke Social History Smoking and tobacco status: never smoked Alcohol intake: never Household members: spouse and children Marital status: Physical Exam Const: GENERAL APPEARANCE: cooperative and comfortable ORIENTATION/CONSCIOUSNESS: Yes awake, Yes oriented to person, Yes oriented to place and Yes oriented to time HENMT: COMMON NORMALS: normocephalic, hearing grossly normal bilaterally, external ears normal, EAC's normal, TM's normal bilaterally, Normal nasal mucous membranes and turbinates present, moist oral mucous membranes and oropharynx normal HEAD & SCALP: normocephalic NOSE: Normal nasal mucous membranes and turbinates present EXTERNAL EAR: Yes external ears normal EXTERNAL AUDITORY CANAL: EAC's normal TYMPANIC MEMBRANE: TM's normal bilaterally Eye: COMMON NORMALS: Equal, round and reactive pupils present, EOMs intact bilaterally, conjunctivae normal and no scleral icterus CONJUNCTIVA: Yes conjunctivae normal PUPIL: Yes Equal, round and reactive pupils present Resp: COMMON NORMALS: normal respiratory effort, No retractions, No use of accessory muscles and clear to auscultation bilaterally AUSCULTATION: clear to auscultation bilaterally Cardio: COMMON NORMALS: regular rate, regular rhythm and No murmurs present (Cardio) RATE: regular rate RHYTHM: regular rhythm GI: COMMON NORMALS: Soft to palpation and No hepatosplenomegaly present AUSCULTATION: Yes normoactive bowel sounds PALPATION: Yes Soft to palpation, No Tenderness to palpation present (GI), No Guarding due to palpation present (GI) and Yes No hepatosplenomegaly present Extremity: COMMON NORMALS: normal to inspection, capillary refill normal, no clubbing, cyanosis or edema, no calf tenderness and no pedal edema Neuro: SENSORIUM/ORIENTATION: Yes oriented to person, Yes oriented to place and Yes oriented to time Skin: COMMON NORMALS: no rashes or lesions noted GENERAL SKIN EXAM: no rashes or lesions noted Course Vital Signs: Vital signs: Vital Signs Temperature 97.8 F 01/04/22 08:32 Pulse Rate 69 01/04/22 12:48 Respiratory Rate 22 H 01/04/22 12:48 Blood Pressure 160/81 01/04/22 12:48 Pulse Oximetry 97 01/04/22 12:48 Oxygen Delivery Me thod 01/04/22 12:00 MDM - Fall Medical Decision Making Labs imaging and EKG reviewed. Patient is in atrial fibrillation but rate is well controlled at this time. Nasal bone fractures no other fractures no intracranial injury. Mild chronic kidney injury which is at his baseline. Patient is otherwise feeling okay. He has some aches and pains from where he fell reviewed with him the nasal bone fracture we can refer him to ENT although there is probably not much that can or needs to be done for this. Continue to monitor his blood sugars regularly follow-up with his primary care doctor. Medical Records I reviewed the patient's medical records. Lab Data I reviewed the patient's lab results. : 01/04/22 09:00 01/04/22 09:00 Radiology Impressions Cervical Spine X-Ray 01/04/22 08:44 IMPRESSION: No acute abnormality. Face CT 01/04/22 08:44 IMPRESSION: 1. Slightly displaced anterior nasal bone and nasal tip fractures. 2. No other acute facial fractures. Head CT 01/04/22 08:44 IMPRESSION: 1. No evidence of intracranial hemorrhage or mass effect. 2. Moderate small vessel changes. Moderate parenchymal volume loss. 3. Soft tissue edema overlying the frontal calvarium. 4. Partially visualized anterior nasal bone fractures. 5. No acute intracranial findings. Knee X-Ray 01/04/22 09:03 IMPRESSION: 1. Small joint effusion. 2. Prominent DJD. 3. No fracture seen. Laboratory Results WBC 13.8 10^3/uL (4.0-10.0) H 01/04/22 09:00 RBC 4.87 10^6/uL (4.1-5.3) 01/04/22 09:00 Hgb 14.9 g/dL (11.7-16.6) 01/04/22 09:00 Hct 45.7 % (42.0-52.0) 01/04/22 09:00 MCV 93.8 fl (80-94) 01/04/22 09:00 MCH 30.6 pg (28.0-34.0) 01/04/22 09:00 MCHC 32.6 g/dL (30.0-36.0) 01/04/22 09:00 RDW 12.7 % (12.1-15.1) 01/04/22 09:00 Plt Count 269 10^3/cmm (130-400) 01/04/22 09:00 MPV 10.4 fL (7.4-10.4) 01/04/22 09:00 Neut % (Auto) 75.3 % 01/04/22 09:00 Lymph % (Auto) 16.8 % 01/04/22 09:00 Glades % (Auto) 7.1 % 01/04/22 09:00 Eos % (Auto) 0.1 % 01/04/22 09:00 Baso % (Auto) 0.2 % 01/04/22 09:00 Neut # (Auto) 10.35 10^3/uL (1.8-7.7) H 01/04/22 09:00 Lymph # (Auto) 2.3 10^3/uL (0.8-4.8) 01/04/22 09:00 Glades # (Auto) 1.0 10^3/uL (0.2-0.9) H 01/04/22 09:00 Eos # (Auto) 0.0 10^3/uL (0.0-0.8) 01/04/22 09:00 Baso # (Auto) 0.0 10^3/uL (0.0-0.1) 01/04/22 09:00 Nucleated RBC % (auto) 0 % 01/04/22 09:00 Nucleated RBCs # 0.0 /100WBC 01/04/22 09:00 Sodium 134 mmol/L (136-145) L 01/04/22 09:00 Potassium 4.3 mmol/L (3.5-5.1) 01/04/22 09:00 Chloride 99 mmol/L (98-107) 01/04/22 09:00 Carbon Dioxide 20 mmol/L (22-29) L 01/04/22 09:00 Anion Gap 19.3 (5-19) H 01/04/22 09:00 BUN 26 mg/dL (8-23) H 01/04/22 09:00 Creatinine 1.3 mg/dL (0.7-1.2) H 01/04/22 09:00 GFR Calculation Not Reportable 01/04/22 09:00 Glucose 450 mg/dL (65-115) H 01/04/22 09:00 POC Glucose 482 mg/dL (70-110) H 01/04/22 10:20 Calculated Osmolality 302 mOsm/kg (285-295) H 01/04/22 09:00 Calcium 9.6 mg/dL (8.5-10.5) 01/04/22 09:00 Creatine Kinase 227 U/L (39-308) 01/04/22 09:00 Discharge Plan Discharge Patient Disposition: Home Clinical Impression: Fall, Benign essential HTN, Fracture closed, nasal bone, Atrial fibrillation Condition: Stable Prescriptions: New metoprolol succinate 25 mg tablet extended release 24 hr 25 mg PO DAILY Qty: 30 0RF lisinopril 20 mg tablet 20 mg PO DAILY Qty: 30 0RF Discontinued hydrochlorothiazide 12.5 mg tablet 12.5 mg PO DAILY Qty: 14 0RF No Action amlodipine 10 mg Tablet 10 mg PO DAILY Humulin N NPH U-100 Insulin 100 unit/mL suspension 20 unit SUBCUT BID cholecalciferol (vitamin D3) [Vitamin D3] 25 mcg (1,000 unit) Tablet 25 mcg PO DAILY Multivitamin 50 Plus Tablet 1 tab PO DAILY Discharge Orders: Discharge ED (Routine); Ordered 01/04/22 Ordered By: Neptali Nava Referrals: Carlos Nagy MD [Primary Care Provider] - Discharge Diet: Usual diet Discharge Activity: Increase activity as tolerated Patient Instructions: Opioid Safety, Pain Management Coding Level of Care Code ED Supervisor Force Adjustment for Chg Fwd Exam Comprehensive
--- NOTE | 2022-01-04 09:03 | XRR_ITS ---
PROCEDURE INFORMATION: Exam: XR Right Knee Exam date and time: 01/04/2022 9:38 AM Age: 86 years old Clinical indication: Injury or trauma; Fall; Blunt trauma; Knee; Right; Additional info: Pain/ fall TECHNIQUE: Imaging protocol: Radiologic exam of the Right knee. Views: 3 views. COMPARISON: CR XR foot RT min 3V* [id number] 05/13/2020 11:41 AM FINDINGS: Bones/joints: Small joint effusion. No fracture or other acute bony abnormality. Prominent chronic degenerative disease with joint space narrowing and osteophytes. Soft tissues: Normal. Vasculature: Prominent atherosclerotic calcifications. XR/XR knee RT 3V* [id number] IMPRESSION: 1. Small joint effusion. 2. Prominent DJD. 3. No fracture seen.
[2022-01-04 09:24] LABS: Basophils % 0.2 %; Eosinophils % 0.1 %; Hematocrit 45.7 % (42.0-52.0); Hemoglobin 14.9 g/dL (11.7-16.6); Lymphocytes # 2.3 10^3/uL (0.8-4.8); Lymphocytes % 16.8 %; Mean Corpuscular HGB Conc 32.6 g/dL (30.0-36.0); Mean Corpuscular Hemoglobin 30.6 pg (28.0-34.0); Mean Corpuscular Volume 93.8 fl (80-94); Mean Platelet Volume 10.4 fL (7.4-10.4); Monocytes % 7.1 %; Neutrophils # 10.35 10^3/uL (1.8-7.7); Neutrophils % 75.3 %; Nucleated Red Blood Cells % 0 %; Platelet Count 269 10^3/cmm (130-400); Red Blood Count 4.87 10^6/uL (4.1-5.3); Red Cell Distribution Width 12.7 % (12.1-15.1); White Blood Count 13.8 10^3/uL (4.0-10.0)
[2022-01-04 09:44] LABS: Anion Gap 19.3 (5-19); Blood Urea Nitrogen 26 mg/dL (8-23); Calcium 9.6 mg/dL (8.5-10.5); Carbon Dioxide 20 mmol/L (22-29); Chloride 99 mmol/L (98-107); Creatine Phosphokinase 227 U/L (39-308); Glucose 450 mg/dL (65-115); Osmolality Calculated 302 mOsm/kg (285-295); Potassium 4.3 mmol/L (3.5-5.1); Sodium 134 mmol/L (136-145)
--- NOTE | 2022-01-04 09:51 | PC.PHAR ---
PT STATES HE TAKES A BP MED, A WATER PILL AND INSULIN-PTS SON AND DAUGHTER STATES THEY HELP THE PT WITH HIS MEDICATIONS-RX WRITTEN 09/10/2020 FOR HCTZ 12.5MG DAILY PT AND PTS DAUGHTER STATES THE PT TAKES A WATER PILL DAILY [facility] STATES THEY HAVENT FILLED A WATER PILL FOR THE PT-ON PREVIOUS ENTERED MED LIST THIS NOTE WAS WRITTEN RX LAST FILLED 09/10/2020 FOR 14 YEARS-PTS SON STATES HE GIVES THE PT HUMULIN N 20 UNITS BID RX FILLED 11/29/21 32 UNITS BID-FLOMAX 0.4MG BID WAS FILLED 10/14/21 90D/S PTS DAUGHTER AND SON STATES THEY DONT GIVE THE PT THIS MEDICATION-NOTES ARE MADE IN THE PHARMACY COMMENTS
[2022-01-04] MEDS: tetanus-dipt-pertussis 0.5 mL SDV IM (10:02)
[2022-01-04] MEDS: metoprolol succinate ER (24 HR) 25 mg Tablet PO (10:22)
[2022-01-04] MEDS: metoprolol tartrate 1 mg/1 mL SDV 5 mL 2.5 MG IVP (10:22)
[2022-01-04] MEDS: amlodipine 10 mg Tablet PO (10:22)
[2022-01-04 10:23] LABS: Glucose Point of Care 482 mg/dL (70-110)
[2022-01-04] MEDS: insulin regular-human 100 units/1 mL 10 UNIT IVP (11:24)
== END 2022-01-04 12:49 | disposition home or self-care (01) ==
PROVIDERS: Emergency Provider Family Medicine; PCP Family Medicine
DX: S02.2XXA Fracture of nasal bones, initial encounter for closed fracture (principal); I48.91 Unspecified atrial fibrillation; Z79.4 Long term (current) use of insulin; I25.10 Atherosclerotic heart disease of native coronary artery without angina pectoris; I12.9 Hypertensive chronic kidney disease with stage 1 through stage 4 chronic kidney disease, or unspecified chronic kidney disease; E11.22 Type 2 diabetes mellitus with diabetic chronic kidney disease; N18.9 Chronic kidney disease, unspecified; Z86.73 Personal history of transient ischemic attack (TIA), and cerebral infarction without residual deficits; Z95.1 Presence of aortocoronary bypass graft; W18.39XA Other fall on same level, initial encounter; Z23 Encounter for immunization
CPT/HCPCS: 36416; 70450; 70486; 72040; 73562; 80048; 82550; 82962; 85025; 90471; 90715; 93005; 96372; 96374; 96375; 99285; J1815; J3490

== ENCOUNTER → 2022-02-16 10:18 | Outpatient (BNVA) | payer MEDICARE, MEDICAID, SELFPAY | PROVIDERS: PCP Family Medicine; Visit Provider Family Medicine | DX: I10 Essential (primary) hypertension (principal); E11.42 Type 2 diabetes mellitus with diabetic polyneuropathy; Z79.4 Long term (current) use of insulin | CPT/HCPCS: 80053; 80061; 83036; 85025 ==

== ENCOUNTER 2022-06-14 08:16 | Inpatient (IN) | payer MEDICARE, MEDICAID, SELFPAY ==
[2022-06-14] VITALS (7 sets, daily range): BP systolic 123–145; BP diastolic 52–111; PULSE 83–115; RESP 16–18; TEMP 36.4–36.8; O2SAT 90–97
--- NOTE | 2022-06-14 08:33 | XRR_ITS ---
PROCEDURE INFORMATION: Exam: XR Right Hip Exam date and time: 06/14/2022 8:42 AM Age: 86 years old Clinical indication: Injury or trauma; Fall; Blunt trauma (contusions or hematomas); Right; Hip; Additional info: Fall/trauma; One view pelvis too please TECHNIQUE: Imaging protocol: Radiologic exam of the right hip. Views: 1 view hip with pelvis when performed. COMPARISON: CT abdomen pelvis w con* [id number] 04/14/2020 5:20 PM FINDINGS: Bones/joints: Subcapital femoral neck fracture. Superior and lateral displacement of the femoral neck. Soft tissues: Unremarkable. XR/XR hip RT 2-3V wo/w pel* [id number] IMPRESSION: Subcapital femoral neck fracture.
--- NOTE | 2022-06-14 08:33 | CT_ITS ---
WS: [id number] CT CERVICAL TRAUMA TECHNIQUE: Noncontrast CT of the cervical spine with coronal and sagittal reformatted images. CLINICAL INFORMATION: fall/trauma COMPARISON: None. DLP: 1380.[address] scans at [facility] use at least one of these dose optimization techniques: automated e xposure control; mA and/or kV adjustment per patient size (includes targeted exams where dose is matc hed to clinical indication); or iterative reconstruction. FINDINGS: Straightening of the normal cervical lordosis. 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 Disc space narrowing worse at C5-C6. Normal craniocervical junction. Normal C1-C2 articulation. Dens is normal in appearance. Normal occipital condyles. No high-grade spinal canal narrowing. Alma l C1 ring. No evidence of acute fracture or dislocation. Normal prevertebral soft tissues. Fibrosis in the lung apices. Mastoids air cells are well aerated. CT/CT cervical spin wo con* [id number] IMPRESSION: No evidence of acute fracture or dislocation.
--- NOTE | 2022-06-14 08:33 | XRR_ITS ---
PROCEDURE INFORMATION: Exam: XR Chest Exam date and time: 06/14/2022 8:42 AM Age: 86 years old Clinical indication: Injury or trauma; Fall; Blunt trauma (contusions or hematomas) TECHNIQUE: Imaging protocol: Radiologic exam of the chest. Views: 1 view. COMPARISON: CR XR chest 1V portable [id number] 02/23/2021 11:17 AM FINDINGS: Lungs: Stable nodule likely calcified granuloma in the left costophrenic region. No significant airspace consolidation concerning for pneumonia. Pleural spaces: No significant pleural effusion. Heart/Mediastinum: Postsurgical changes in the mediastinum. Bones/joints: Median sternotomy wires noted. XR/XR chest 1V portable [id number] IMPRESSION: No acute cardiopulmonary abnormality identified.
--- NOTE | 2022-06-14 08:33 | XRR_ITS ---
PROCEDURE INFORMATION: Exam: XR Right Knee Exam date and time: 06/14/2022 8:42 AM Age: 86 years old Clinical indication: Injury or trauma; Fall; Blunt trauma; Knee; Right; Additional info: Fall/trauma/pain TECHNIQUE: Imaging protocol: Radiologic exam of the right knee. Views: 3 views. COMPARISON: CR XR knee RT 3V* [id number] 01/04/2022 9:38 AM FINDINGS: Bones/joints: The medial joint space is narrowed with osteophyte formation. The lateral joint space is narrowed with osteophyte formation. No fracture identified. Patellar osteophytes noted. Soft tissues: No knee joint effusion is present. Calcified atherosclerotic disease. XR/XR knee RT 3V* [id number] IMPRESSION: 1. No evidence of acute fracture or dislocation. 2. Prominent osteoarthritic changes.
--- NOTE | 2022-06-14 08:33 | CT_ITS ---
WS: [id number] CT HEAD TECHNIQUE: Noncontrast CT of the head obtained from the skullbase to the vertex. CLINICAL INFORMATION: trauma/fall COMPARISON: January 04, 2022 DLP: 1380.[address] scans at [facility] use at least one of these dose optimization techniques: automated e xposure control; mA and/or kV adjustment per patient size (includes targeted exams where dose is matc hed to clinical indication); or iterative reconstruction. FINDINGS: No evidence of intracranial hemorrhage or mass effect. Ventricular system and basal cisterns are zamudio nt. Moderate small vessel changes with moderate parenchymal volume loss. Chronic infarct RIGHT pariet al lobe with encephalomalacia. Vascular calcification. No extra-axial fluid collections. No evidence of mass or mass effect. Tiny chronic lacunar infarct LEFT thalamus and LEFT caudate. Paranasal sinuses and mastoid air cells are well aerated. .Normal visualized soft tissues. CT/CT head wo con* [id number] IMPRESSION: 1. No evidence of intracranial hemorrhage or mass effect. 2. Moderate small vessel changes moderate parenchymal volume loss. 3. 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 4. Vascular calcification. 5. No acute intracranial findings.
--- NOTE | 2022-06-14 08:34 | ED_ITS ---
Documented by User: RUIZ Paige 06/14/22 11:01 HPI - Fall General: Chief Complaint: Fall Stated Complaint: Fall Time Seen by Provider: 06/14/22 08:17 Source: patient Mode of arrival: EMS Limitations: no limitations (although he can be a poor historian at times) History of Present Illness: Patient is a nice 86-year-old male who presents to ED today via EMS for evaluat ion following a fall. 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 According to patient he has had many falls over the past several weeks. Does not seem to be able to tell me an adequate history on exactly what is causing him to fall. He states yesterday evening he fell and was not able to get up from the floor. He states he laid on the floor all evening and was found by his son this morning. He states when they tried to get him up he was having pain to his right knee area and was not able to ambulate. Patient states he urinated and soiled on himself during the night. He does believe he struck his head but denies LOC. He is not sure whether he is on anticoagulation or not. He cannot tell me any of the names of the medications he takes but believes he feels them at [facility]. Patient is difficult of hearing. History often jumps from topic to topic but he can seem to be redirected. He is oriented to name, family members, date of and upcoming birthday. 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 complaint: fall Onset (ago): hour(s) Fall from: standing Fall witnessed: no Place fall occurred: home Loss of consciousness: None Prolonged down time: yes Symptoms prior to fall: other (unknown) Associated symptoms-after fall: Reports lightheadedness; Denies abdominal pain, chest pain, headache(s), hematuria or neck pain Review of Systems General: Reports: Other (patient is a poor historian so I question the accuracy of his answers) Const: Denies: fever(s), chills or body aches Eyes: Reports: other (chronic L eye blindness; partial blindness R eye) ENMT: Denies: nasal discharge, nasal congestion or sinus pain Card: Reports: lightheadedness; Denies: chest pain, palpitations, irregular heart rhythm, edema, dyspnea on exertion or orthopnea Resp: Denies: dyspnea, productive cough or non-productive cough GI: Denies: abdominal pain, nausea, vomiting or diarrhea : Reports: dysuria and urinary incontinence (chronic); Denies: flank pain or hematuria Musc: Reports: joint pain (R knee); Denies: neck pain or back pain Neuro: Reports: frequent falls and dizziness; Denies: headache(s) PFSH ED PFSH: Medical History (Updated 06/18/22 @ 06:01 by Neptali Nava DO) Blind left eye BPH (benign prostatic hyperplasia) CAD (coronary artery disease) Cellulitis Chronic atrial fibrillation Chronic kidney disease Constipation Diabetes mellitus, type II Elevated lactic acid level Frequent falls History of stroke Hypertension Osteoarthritis Peripheral arterial disease Right foot ulcer Surgical History 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 History of appendectomy History of cholecystectomy History of eye surgery History of partial ray amputation of second toe of right foot unknown if partial or complete, done in [place] possibly sometime recently though date unknown as of 04/14/20 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, Dr De Paz Family History Father CAD (coronary artery disease) Grandmother Diabetes Family/Other Diabetes Denies family history of Clotting disorder Dementia Chronic kidney disease (CKD) Suicide Anesthesia complication Bleeding disorder Lung disease Cancer Stroke Social History Smoking and tobacco status: never smoked Alcohol intake: never Household members: spouse and children Marital status: Physical Exam Const: COMMON NORMALS: patient oriented x3 and alert EXAM LIMITATIONS: altered mental status (seems to have some baseline dementia) GENERAL APPEARANCE: cooperative and disheveled ORIENTATION/CONSCIOUSNESS: Yes awake, Yes oriented to person and Yes oriented to time (knows his birthday is coming up and he'll be 87) OTHER: Patient overall is a fairly poor historian at times. He often jumps from topic to topic. Some of this may be secondary to being hard of hearing and not fully understanding the question. He can usually be redirected and give a fairly straightforward answer. He seems to be fairly oriented and knows his name, birthday, age, address, knows that his son and daughter helps take care of him, tells me about his who reportedly is in the hospital HENMT: COMMON NORMALS: normocephalic and atraumatic HEAD & SCALP: normal to inspection, normocephalic and atraumatic FACE & SINUS: normal facial exam TEETH & GINGIVA: Yes poor dentition Eye: OTHER: chronic complete opacity of L cornea-he states he has been blind in this eye for many decades Neck/C-Spine: COMMON NORMALS: full ROM GENERAL: Yes normal visual inspection CERVICAL SPINE: No Cervical spine tenderness Chest: COMMONS NORMALS: normal inspection of the chest and normal palpation of entire chest wall Resp: COMMON NORMALS: normal respiratory effort and clear to auscultation bilaterally AUSCULTATION: clear to auscultation bilaterally Cardio: RATE: Other (a fib anywhere from 90s-120s) RHYTHM: abnormal rhythm GI: COMMON NORMALS: Normal to inspection, nondistended, normoactive bowel sounds present, Soft to palpation and non-tender PALPATION: Yes Soft to palpation Back/Pelvis: COMMON NORMALS: thoracic and lumbar spine normal to inspection, no thoracic nor lumbar tenderness and thoraco-lumbar ROM normal Extremity: COMMON NORMALS: capillary refill normal, no clubbing, cyanosis or edema, no calf tenderness and no pedal edema GENERAL: Yes normal exam except as noted RIGHT LOWER EXTREMITY: Yes hip joint, Yes knee joint and Yes foot & digits (transmetatarsal amputation) OTHER: R LE is shortened and rotated; he complains only of R knee pain not hip pain however any form of ROM to the hip joint produces quite a bit of discomfort; distal pulses and cap refill normal Neuro: GUILHERME COMA SCALE: document GCS findings Guilherme coma scale eye openi ng: Spontaneous [place] coma scale verbal response: Orientated [place] coma scale motor response: Obey commands [place] coma scale total score: 15 COMMON NORMALS: patient oriented x3, moves all extremities, no focal motor deficits and no sensory deficits noted SENSORIUM/ORIENTATION: Yes alert, Yes oriented to person and Yes oriented to time (knows his birthday is coming up and he'll be 87) Skin: COMMON NORMALS: no rashes or lesions noted NARRATIVE SKIN EXAM: he has dried fecal matter to bilateral LEs and a soaked brief; this was promptly cleaned/changed by RN upon arrival GENERAL SKIN EXAM: no rashes or lesions noted Course Consultations: Consultation #1: Dr. Evans-will consult on patient for his L subcapital/femoral neck fracture Vital Signs: Vital signs: Vital Signs Temperature 98.4 F 06/18/22 04:00 Pulse Rate 93 06/18/22 05:11 Respiratory Rate 21 H 06/18/22 04:00 Blood Pressure 148/75 06/18/22 04:00 Pulse Oximetry 96 06/18/22 04:00 Oxygen Delivery Me thod Room Air 06/18/22 04:00 Oxygen Flow Rate 6 06/17/22 20:00 MDM - Fall Medical Decision Making Patient is an 86-year-old male here following a fall that happened yesterday evening. Patient was down all evening and found by his son this morning. Mechanism of patient's fall not be confirmed/unknown secondary to patient's poor historian skills. Family does report he falls often. He uses a walker at home and family tapes walkways in his home so he can see where he is going as he is legally blind does have some limited vision to the right eye. He is also status post transection of his right metatarsals secondary to osteomyelitis and family states this causes him to fall as well. I spoke to Dr. Evans who will consult on patient's left hip fracture. I spoken to Dr. Nava who will assume care of patient and speak to Dr. Culver in regards to admission. Most of patient's blood work is still pending at the time of transfer to Dr. Nava. Lab Data 06/18/22 05:00 06/18/22 05:00 Radiology Impressions Cervical Spine CT 06/14/22 08:33 IMPRESSION: No evidence of acute fracture or dislocation. Chest X-Ray 06/14/22 08:33 IMPRESSION: No acute cardiopulmonary abnormality identified. Head CT 06/14/22 08:33 IMPRESSION: 1. No evidence of intracranial hemorrhage or mass effect. 2. Moderate small vessel changes moderate parenchymal volume loss. 3. 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 4. Vascular calcification. 5. No acute intracranial findings. Hip/Pelvis X-Ray 06/14/22 08:33 IMPRESSION: Subcapital femoral neck fracture. Knee X-Ray 06/14/22 08:33 IMPRESSION: 1. No evidence of acute fracture or dislocation. 2. Prominent osteoarthritic changes. Abdomen/Pelvis CT 06/14/22 10:19 IMPRESSION: 1. Again seen is the acute RIGHT subcapital hip fracture with impaction and varus rotation. 2. Slightly comminuted fracture involving the inferior RIGHT dorsal Pubic ramus. 3. Associated gluteal soft tissue edema. 4. Aggarwal catheter with markedly enlarged prostate. Recommend correlation PSA. 5. No hydronephrosis in either kidney. Pelvis X-Ray 06/15/22 14:36 IMPRESSION: 1. No acute findings. 2. Metallic right hip arthroplasty in good position Laboratory Results WBC 13.4 10^3/uL (4.0-10.0) H 06/14/22 09:15 RBC 4.38 10^6/uL (4.1-5.3) 06/14/22 09:15 Hgb 13.3 g/dL (11.7-16.6) 06/14/22 09:15 Hct 41.6 % (42.0-52.0) L 06/14/22 09:15 MCV 95.0 fl (80-94) H 06/14/22 09:15 MCH 30.4 pg (28.0-34.0) 06/14/22 09:15 MCHC 32.0 g/dL (30.0-36.0) 06/14/22 09:15 RDW 12.9 % (12.1-15.1) 06/14/22 09:15 Plt Count 372 10^3/cmm (130-400) 06/14/22 09:15 MPV 9.3 fL (7.4-10.4) 06/14/22 09:15 Neut % (Auto) 81.7 % 06/14/22 09:15 Lymph % (Auto) 12.6 % 06/14/22 09:15 [place] % (Auto) 5.0 % 06/14/22 09:15 Eos % (Auto) 0.1 % 06/14/22 09:15 Baso % (Auto) 0.2 % 06/14/22 09:15 Neut # (Auto) 10.93 10^3/uL (1.8-7.7) H 06/14/22 09:15 Lymph # (Auto) 1.7 10^3/uL (0.8-4.8) 06/14/22 09:15 [place] # (Auto) 0.7 10^3/uL (0.2-0.9) 06/14/22 09:15 Eos # (Auto) 0.0 10^3/uL (0.0-0.8) 06/14/22 09:15 Baso # (Auto) 0.0 10^3/uL (0.0-0.1) 06/14/22 09:15 Nucleated RBC % (auto) 0 % 06/14/22 09:15 Nucleated RBCs # 0.0 /100WBC 06/14/22 09:15 Sodium 138 mmol/L (136-145) 06/14/22 09:15 Potassium 5.3 mmol/L (3.5-5.1) H 06/14/22 09:15 Chloride 102 mmol/L (98-107) 06/14/22 09:15 Carbon Dioxide 17 mmol/L (22-29) L 06/14/22 09:15 Anion Gap 24.3 (5-19) H 06/14/22 09:15 BUN 38 mg/dL (8-23) H 06/14/22 09:15 Creatinine 1.8 mg/dL (0.7-1.2) H 06/14/22 09:15 GFR Calculation Not Reportable 06/14/22 09:15 Glucose 214 mg/dL (65-115) H 06/14/22 09:15 Calculated Osmolality 301 mOsm/kg (285-295) H 06/14/22 09:15 Lactic Acid 2.3 mmol/L (0.5-2.2) H 06/14/22 09:15 Lactic Acid (Sepsis) 1.7 mmol/L (0.5-2.2) 06/14/22 11:25 Calcium 9.3 mg/dL (8.5-10.5) 06/14/22 09:15 Total Bilirubin 1.0 mg/dL (0.15-1.2) 06/14/22 09:15 AST 42 U/L (0-40) H 06/14/22 09:15 ALT 37 U/L (0-41) 06/14/22 09:15 Alkaline Phosphatase 154 U/L (40-130) H 06/14/22 09:15 Creatine Kinase 617 U/L (39-308) H* 06/14/22 09:15 CK-MB (CK-2) 9.6 ng/mL (0-10.4) 06/14/22 09:15 CK-MB (CK-2) Rel Index 1.5 % (0.0-5.3) 06/14/22 09:15 Troponin T Baseline 64 ng/L (0-15) H 06/14/22 09:15 Troponin T 120 Minute 61.14 ng/L (0-15) H 06/14/22 11:15 Delta Troponin T -2.86 ABS# (0-10) L 06/14/22 11:15 Total Protein 7.7 g/dL (6.6-8.7) 06/14/22 09:15 Albumin 4.0 g/dL (3.5-5.2) 06/14/22 09:15 Globulin 3.7 g/dL (1.3-4.6) 06/14/22 09:15 Urine Color Yellow (Yellow) 06/14/22 09:15 Urine Appearance Cloudy (CLEAR) A 06/14/22 09:15 Urine pH 9 (5-7) H 06/14/22 09:15 Ur Specific [place] 1.010 (1.005-1.030) 06/14/22 09:15 Urine Protein 2+ (Negative) H 06/14/22 09:15 Urine Glucose (UA) Norm (Normal) 06/14/22 09:15 Urine Ketones 1+ (Negative) H 06/14/22 09:15 Urine Blood 3+ (Negative) H 06/14/22 09:15 Urine Nitrate Negative (Negative) 06/14/22 09:15 Urine Bilirubin Neg (Negative) 06/14/22 09:15 Prot Sulfosalicylic Acd Positive (Negative) 06/14/22 09:15 Urine Urobilinogen Neg mg/dL (Negative) 06/14/22 09:15 Ur Leukocyte Esterase 2+ (Negative) H 06/14/22 09:15 Urine RBC >100 /hpf (0-2) H 04/13/23 09:15 Urine WBC >100 /hpf (0-5) H 06/14/22 09:15 Ur Squamous Epith Cells 0-4 /hpf (0-5) H 06/14/22 09:15 Triple Phos Crystals 5-10 /hpf H 06/14/22 09:15 Amorphous Sediment Not Reportable 06/14/22 09:15 Urine Bacteria 4+ /hpf (NONE) H 06/14/22 09:15 Urine Mucus 3+ /hpf 06/14/22 09:15 Discharge Plan Discharge Patient Disposition: Admitted As Inpatient Admit Provider: Ben Culver Clinical Impression: Subcapital fracture of right hip, Fracture of right inferior pubic ramus, Acute kidney injury, Chronic kidney disease, Hyperkalemia, Elevated troponin, Rhabdomyolysis Condition: Stable Coding Level of Care Code ED Disability Benefits Specialist for Chg Fwd Documented by User: Neptali Nava DO 06/18/22 06:01 HPI - Fall General: Chief Complaint: Fall Stated Complaint: Fall Time Seen by Provider: 06/14/22 08:17 [facility] ED PFSH: Medical History (Updated 06/18/22 @ 06:01 by Neptali Nava DO) Blind left eye BPH (benign prostatic hyperplasia) CAD (coronary artery disease) Cellulitis Chronic atrial fibrillation Chronic kidney disease Constipation Diabetes mellitus, type II Elevated lactic acid level Frequent falls History of stroke Hypertension Osteoarthritis Peripheral arterial disease Right foot ulcer Surgical History 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 History of appendectomy History of cholecystectomy History of eye surgery History of partial ray amputation of second toe of right foot unknown if partial or complete, done in [place] possibly sometime recently though date unknown as of 04/14/20 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, [address] De Paz Family History Father CAD (coronary artery disease) Grandmother Diabetes Family/Other Diabetes Denies family history of Clotting disorder Dementia Chronic kidney disease (CKD) Suicide Anesthesia complication Bleeding disorder Lung disease Cancer Stroke Social History Smoking and tobacco status: never smoked Alcohol intake: never Household members: spouse and children Marital status: Physical Exam Neuro: GUILHERME COMA SCALE: document GCS findings [place] coma scale total score: 15 Course Vital Signs: Vital signs: Vital Signs Temperature 98.4 F 06/18/22 04:00 Pulse Rate 93 06/18/22 05:11 Respiratory Rate 21 H 06/18/22 04:00 Blood Pressure 148/75 06/18/22 04:00 Pulse Oximetry 96 06/18/22 04:00 Oxygen Delivery Me thod Room Air 06/18/22 04:00 Oxygen Flow Rate 6 06/17/22 20:00 MDM - Fall Medical Decision Making Patient is an 86-year-old male here following a fall that happened yesterday evening. Patient was down all evening and found by his son this morning. Mechanism of patient's fall not be confirmed/unknown secondary to patient's poor historian skills. Family does report he falls often. He uses a walker at home and family tapes walkways in his home so he can see where he is going as he is legally blind does have some limited vision to the right eye. He is also status post transection of his right metatarsals secondary to osteomyelitis and family states this causes him to fall as well. I spoke to Dr. Evans who will consult on patient's left hip fracture. I spoken to Dr. Nava who will assume care of patient and speak to Dr. Culver in regards to admission. Most of xavier ent's blood work is still pending at the time of transfer to Dr. Nava. Discussed case with RUIZ Paige. Patient has subcapital hip fracture. CT head and chest x-ray were unremarkable. Cervical spine has been cleared labs and imaging reviewed. Discussed with hospitalist as well as orthopedist will admit for definitive surgical care. Also discussed Dr. Marsh has multiple ongoing medical issues that we will require stabilization prior to surgery and have discussed with hospitalist as well. Unfortunately patient has had frequent falls in the past will likely require long-term placement. Orders written Medical Records I reviewed the patient's medical records. Lab Data I reviewed the patient's lab results. 06/18/22 05:00 06/18/22 05:00 Radiology Impressions Cervical Spine CT 06/14/22 08:33 IMPRESSION: No evidence of acute fracture or dislocation. Chest X-Ray 06/14/22 08:33 IMPRESSION: No acute cardiopulmonary abnormality identified. Head CT 06/14/22 08:33 IMPRESSION: 1. No evidence of intracranial hemorrhage or mass effect. 2. Moderate small vessel changes moderate parenchymal volume loss. 3. 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 4. Vascular calcification. 5. No acute intracranial findings. Hip/Pelvis X-Ray 06/14/22 08:33 IMPRESSION: Subcapital femoral neck fracture. Knee X-Ray 06/14/22 08:33 IMPRESSION: 1. No evidence of acute fracture or dislocation. 2. Prominent osteoarthritic changes. Abdomen/Pelvis CT 06/14/22 10:19 IMPRESSION: 1. Again seen is the acute RIGHT subcapital hip fracture with impaction and varus rotation. 2. Slightly comminuted fracture involving the inferior RIGHT dorsal Pubic ramus. 3. Associated gluteal soft tissue edema. 4. Aggarwal catheter with markedly enlarged prostate. Recommend correlation PSA. 5. No hydronephrosis in either kidney. Pelvis X-Ray 06/15/22 14:36 IMPRESSION: 1. No acute findings. 2. Metallic right hip arthroplasty in good position Laboratory Results WBC 13.4 10^3/uL (4.0-10.0) H 06/14/22 09:15 RBC 4.38 10^6/uL (4.1-5.3) 06/14/22 09:15 Hgb 13.3 g/dL (11.7-16.6) 06/14/22 09:15 Hct 41.6 % (42.0-52.0) L 06/14/22 09:15 MCV 95.0 fl (80-94) H 06/14/22 09:15 MCH 30.4 pg (28.0-34.0) 06/14/22 09:15 MCHC 32.0 g/dL (30.0-36.0) 06/14/22 09:15 RDW 12.9 % (12.1-15.1) 06/14/22 09:15 Plt Count 372 10^3/cmm (130-400) 06/14/22 09:15 MPV 9.3 fL (7.4-10.4) 06/14/22 09:15 Neut % (Auto) 81.7 % 06/14/22 09:15 Lymph % (Auto) 12.6 % 06/14/22 09:15 [place] % (Auto) 5.0 % 06/14/22 09:15 Eos % (Auto) 0.1 % 06/14/22 09:15 Baso % (Auto) 0.2 % 06/14/22 09:15 Neut # (Auto) 10.93 10^3/uL (1.8-7.7) H 06/14/22 09:15 Lymph # (Auto) 1.7 10^3/uL (0.8-4.8) 06/14/22 09:15 [place] # (Auto) 0.7 10^3/uL (0.2-0.9) 06/14/22 09:15 Eos # (Auto) 0.0 10^3/uL (0.0-0.8) 06/14/22 09:15 Baso # (Auto) 0.0 10^3/uL (0.0-0.1) 06/14/22 09:15 Nucleated RBC % (auto) 0 % 06/14/22 09:15 Nucleated RBCs # 0.0 /100WBC 06/14/22 09:15 Sodium 138 mmol/L (136-145) 06/14/22 09:15 Potassium 5.3 mmol/L (3.5-5.1) H 06/14/22 09:15 Chloride 102 mmol/L (98-107) 06/14/22 09:15 Carbon Dioxide 17 mmol/L (22-29) L 06/14/22 09:15 Anion Gap 24.3 (5-19) H 06/14/22 09:15 BUN 38 mg/dL (8-23) H 06/14/22 09:15 Creatinine 1.8 mg/dL (0.7-1.2) H 06/14/22 09:15 GFR Calculation Not Reportable 06/14/22 09:15 Glucose 214 mg/dL (65-115) H 06/14/22 09:15 Calculated Osmolality 301 mOsm/kg (285-295) H 06/14/22 09:15 Lactic Acid 2.3 mmol/L (0.5-2.2) H 06/14/22 09:15 Lactic Acid (Sepsis) 1.7 mmol/L (0.5-2.2) 06/14/22 11:25 Calcium 9.3 mg/dL (8.5-10.5) 06/14/22 09:15 Total Bilirubin 1.0 mg/dL (0.15-1.2) 06/14/22 09:15 AST 42 U/L (0-40) H 06/14/22 09:15 ALT 37 U/L (0-41) 06/14/22 09:15 Alkaline Phosphatase 154 U/L (40-130) H 06/14/22 09:15 Creatine Kinase 617 U/L (39-308) H* 06/14/22 09:15 CK-MB (CK-2) 9.6 ng/mL (0-10.4) 06/14/22 09:15 CK-MB (CK-2) Rel Index 1.5 % (0.0-5.3) 06/14/22 09:15 Troponin T Baseline 64 ng/L (0-15) H 06/14/22 09:15 Troponin T 120 Minute 61.14 ng/L (0-15) H 06/14/22 11:15 Delta Troponin T -2.86 ABS# (0-10) L 06/14/22 11:15 Total Protein 7.7 g/dL (6.6-8.7) 06/14/22 09:15 Albumin 4.0 g/dL (3.5-5.2) 06/14/22 09:15 Globulin 3.7 g/dL (1.3-4.6) 06/14/22 09:15 Urine Color Yellow (Yellow) 06/14/22 09:15 Urine Appearance Cloudy (CLEAR) A 06/14/22 09:15 Urine pH 9 (5-7) H 06/14/22 09:15 Ur Specific [place] 1.010 (1.005-1.030) 06/14/22 09:15 Urine Protein 2+ (Negative) H 06/14/22 09:15 Urine Glucose (UA) Norm (Normal) 04/13/23 09:15 Urine Ketones 1+ (Negative) H 06/14/22 09:15 Urine Blood 3+ (Negative) H 06/14/22 09:15 Urine Nitrate Negative (Negative) 06/14/22 09:15 Urine Bilirubin Neg (Negative) 06/14/22 09:15 Prot Sulfosalicylic Acd Positive (Negative) 06/14/22 09:15 Urine Urobilinogen Neg mg/dL (Negative) 06/14/22 09:15 Ur Leukocyte Esterase 2+ (Negative) H 06/14/22 09:15 Urine RBC >100 /hpf (0-2) H 06/14/22 09:15 Urine WBC >100 /hpf (0-5) H 06/14/22 09:15 Ur Squamous Epith Cells 0-4 /hpf (0-5) H 06/14/22 09:15 Triple Phos Crystals 5-10 /hpf H 06/14/22 09:15 Amorphous Sediment Not Reportable 06/14/22 09:15 Urine Bacteria 4+ /hpf (NONE) H 06/14/22 09:15 Urine Mucus 3+ /hpf 06/14/22 09:15 Discharge Plan Discharge Patient Disposition: Admitted As Inpatient Admit Provider: Ben Culver Clinical Impression: Subcapital fracture of right hip, Fracture of right inferior pubic ramus, Acute kidney injury, Chronic kidney disease, Hyperkalemia, Elevated troponin, Rhabdomyolysis Condition: Stable Coding Level of Care Code ED Disability Benefits Specialist for Cliff Noyola
[2022-06-14] MEDS: ondansetron 2 mg/ML SDV 2 mL 4 MG IVP (09:23)
[2022-06-14] MEDS: morphine 4 mg/mL SDV 1 mL IVP (09:23)
[2022-06-14 09:24] LABS: Basophils % 0.2 %; Eosinophils % 0.1 %; Hematocrit 41.6 % (42.0-52.0); Hemoglobin 13.3 g/dL (11.7-16.6); Lymphocytes # 1.7 10^3/uL (0.8-4.8); Lymphocytes % 12.6 %; Mean Corpuscular Hemoglobin 30.4 pg (28.0-34.0); Mean Platelet Volume 9.3 fL (7.4-10.4); Monocytes # 0.7 10^3/uL (0.2-0.9); Neutrophils # 10.93 10^3/uL (1.8-7.7); Neutrophils % 81.7 %; Nucleated Red Blood Cells % 0 %; Platelet Count 372 10^3/cmm (130-400); Red Blood Count 4.38 10^6/uL (4.1-5.3); Red Cell Distribution Width 12.9 % (12.1-15.1); White Blood Count 13.4 10^3/uL (4.0-10.0)
--- NOTE | 2022-06-14 09:26 | ECG_ITS ---
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 Measurements Intervals [place] Rate: 110 P: 0 ME: 0 QRS: 56 QRSD: 109 T: 84 QT: 379 QTc: 513 Interpretive Statements ATRIAL FIBRILLATION WITH RAPID VENTRICULAR RESPONSE INCOMPLETE RIGHT BUNDLE BRANCH BLOCK [90+ ms QRS DURATION, TERMINAL R IN V1/V2, 40+ ms S IN I/aVL/V4/V5/V6] NONSPECIFIC T-WAVE ABNORMALITY ABNORMAL RHYTHM ECG Compared to ECG 01/04/2022 08:45:27 No significant changes Electronically Signed On 06-14-2022 21:04:34 CDT by Edilson Escalante M.D. [id number]
[2022-06-14 09:44] LABS: Alanine Aminotransferase 37 U/L (0-41); Alkaline Phosphatase 154 U/L (40-130); Anion Gap 24.3 (5-19); Aspartate Amino Transferase 42 U/L (0-40); Blood Urea Nitrogen 38 mg/dL (8-23); Calcium 9.3 mg/dL (8.5-10.5); Carbon Dioxide 17 mmol/L (22-29); Chloride 102 mmol/L (98-107); Globulin 3.7 g/dL (1.3-4.6); Glucose 214 mg/dL (65-115); Osmolality Calculated 301 mOsm/kg (285-295); Potassium 5.3 mmol/L (3.5-5.1); Sodium 138 mmol/L (136-145); Total Protein 7.7 g/dL (6.6-8.7)
[2022-06-14 09:45] LABS: Lactic Sepsis W/Reflex 2.3 mmol/L (0.5-2.2); Troponin(5th) Baseline 64 ng/L (0-15)
[2022-06-14 09:50] LABS: Creatine Phosphokinase 617 U/L (39-308)
[2022-06-14] MEDS: sodium chloride 0.9% 500 ML 999 ML IV (09:51)
[2022-06-14] MEDS: HYDROmorphone 1 mg/mL INJ 1 mL 0.5 MG IVP (09:51)
[2022-06-14 10:05] LABS: Add Urine Microscopic? YES; Bilirubin Urine Neg (Negative); Blood Urine 3+ (Negative); Glucose Urine UA Norm (Normal); Ketones Urine 1+ (Negative); Leukocyte Esterase Urine 2+ (Negative); Nitrate Urine Negative (Negative); Protein Urine 2+ (Negative); Sulfosalicylic Acid Urine Positive (Negative); Urine Appearance Cloudy (CLEAR); Urine Color Yellow (Yellow); Urobilinogen Urine Neg (Negative); pH Urine 9 (5-7)
[2022-06-14 10:09] LABS: CKMB 9.6 ng/mL (0-10.4); CKMB Relative Index 1.5 % (0.0-5.3)
[2022-06-14 10:10] LABS: RBC Urine >100 /hpf (0-2)
[2022-06-14 10:11] LABS: Add Urine Culture? Yes; Bacteria Urine 4+ /hpf; Mucus Urine 3+ /hpf; Squamous Epithelial Cell Urine 0-4 /hpf (0-5); WBC Urine >100 /hpf (0-5)
--- NOTE | 2022-06-14 10:19 | CT_ITS ---
WS: [id number] CT ABDOMEN PELVIS TECHNIQUE: Noncontrast CT of the abdomen and pelvis with coronal and sagittal reformatted images. CLINICAL INFORMATION: flank pain COMPARISON: CT 2020 DLP: 881.[address] scans at [facility] use at least one of these dose optimization techniques: automated e xposure control; mA and/or kV adjustment per patient size (includes targeted exams where dose is matc hed to clinical indication); or iterative reconstruction. FINDINGS: Acute subcapital RIGHT hip fracture with impaction and rotation. This was described on the recent rad iograph. Osteopenia. Bibasilar atelectasis. Calcified granuloma LEFT lower lobe. Pleural plaques RIGH T lower lobe. Noncontrast liver and spleen are normal. Splenic granulomas. Small esophageal hiatal he rnia. Fatty atrophy of the pancreas. Splenic artery calcification. Adrenal glands are normal. Normal caliber abdominal aorta. Aggarwal catheter. Adrenal glands are normal. No hydronephrosis in either kidne y. No obstructing renal or ureteral calculi. Markedly enlarged prostate measuring 6 CM. Recommend correlation PSA. Comminuted fractures involving the RIGHT dorsal inferior pubic ramus. Otherwise normal visualized pel dell bony structures. Acetabulum appears intact. Advanced spondylitic changes lumbar spine. CT/CT kidney stone [id number] IMPRESSION: 1. Again seen is the acute RIGHT subcapital hip fracture with impaction and va prerna rotation. 2. Slightly comminuted fracture involving the inferior RIGHT dorsal Pubic se s. 3. Associated gluteal soft tissue edema. 4. Aggarwal catheter with markedly enlarged prostate. Recommend correlation PSA. 5. No hydronephrosis in either kidney.
--- NOTE | 2022-06-14 10:26 | PC.PHAR ---
PTS DAUGHTER VERIFIED PTS MEDICATIONS-PTS SON STATES THE PT TAKES HUMULIN N U-100 20 UNITS BID RX FILLED FEB 2022 32 UNITS BID-NOTES ARE MADE IN THE PHARMACY COMMENTS
--- NOTE | 2022-06-14 10:46 | ECG_ITS ---
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 Measurements Intervals [place] Rate: 101 P: 0 [place]: 0 QRS: 61 QRSD: 100 T: 89 QT: 389 QTc: 505 Interpretive Statements ATRIAL FIBRILLATION WITH RAPID VENTRICULAR RESPONSE INCOMPLETE RIGHT BUNDLE BRANCH BLOCK [90+ ms QRS DURATION, TERMINAL R IN V1/V2, 40+ ms S IN I/aVL/V4/V5/V6] NONSPECIFIC T-WAVE ABNORMALITY ABNORMAL RHYTHM ECG Compared to ECG 06/14/2022 09:26:08 No significant changes Electronically Signed On 06-14-2022 21:11:57 CDT by Edilson Escalante M.D. [id number]
[2022-06-14 11:11] LABS: Reflex Lactate Order REFLEX LACTIC ORDERD
[2022-06-14] MEDS: sodium chloride 0.9% 1,000 ML 75 ML IV (11:39)
[2022-06-14] MEDS: cefTRIAXone 1,000 MG in sodium chloride 0.9% (plus) 50 ML 100 MG IV (11:40)
[2022-06-14 11:43] LABS: Troponin 5 2HR 61.14 ng/L (0-15)
[2022-06-14 11:47] LABS: Troponin 5 2HR Delta -2.86 ABS# (0-10)
[2022-06-14 12:04] LABS: Lactic Acid level (Lactate) 1.7 mmol/L (0.5-2.2)
--- NOTE | 2022-06-14 12:39 | PM.HP ---
Providers/Chief Complaint Admitting Physician: Ben Culver MD Primary Care Provider: Carlos Nagy MD Chief Complaint: Fall History of Present Illness Frank Espinal is a 86 year old male presenting to the emergency department after a fall. Patient had a fall last night, exact details are not known. He apparently has had frequent falls in the past, with last one being Saturday. Family relates that he falls perhaps once every 2 weeks. He has chronic atrial fibrillation and secondary to his history of frequent falls he is not a candidate for anticoagulation. There is not any history of fever. 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 After the fall last night, he could not get up and was found by his son this morning. Patient reports he has some pain currently, and is alert and able to answer some questions. However, he has some confusion likely related to the Dilaudid he just received. Family relates his falls are secondary to neuropathy, partial foot amputation, significant visual impairments among other things. Patient denies any chest discomfort, difficulty with anesthesia. Long discussion occurred regarding medical decision making and CODE STATUS. Family and patient agree that patient wants surgical intervention, and aggressive treatment but would not want to be on the ventilator or receive CPR. Allow natural order was entered. Emergency department he received multiple imaging tests, IV fluids, morphine and then Dilaudid. I ordered some Rocephin, continued IV fluids, a blood culture. Review of Systems General: Reports: 10 or more systems reviewed and unremarkable except in HPI and below Const: Denies: fever(s) or chills Eyes: Reports: other (Family poor vision, blind in left eye) Card: Denies: chest pain Resp: Denies: dyspnea Medications/Allergies Home Medications Medication Instructions Recorded Confirmed Last Taken Type cholecalciferol (vitamin D3) 25 25 mcg PO DAILY 01/04/22 06/14/22 1 Week Ago History mcg (1,000 unit) tablet (Vitamin ~12/28/21 D3) [id number] 1 tab PO DAILY 01/04/22 06/14/22 Unknown History tablet (Multivitamin 50 Plus tablet) amlodipine 10 mg tablet 10 mg PO DAILY #30 tabs 05/23/22 06/14/22 Unknown Rx lisinopril 20 mg tablet 20 mg PO DAILY #90 tabs 05/23/22 06/14/22 Unknown Rx metoprolol succinate 25 mg 25 mg PO DAILY #90 tabs 05/23/22 06/14/22 Unknown Rx tablet,extended release 24 hr tamsulosin 0.4 mg capsule 0.4 mg PO DAILY #30 caps 05/23/22 06/14/22 Unknown Rx atorvastatin 20 mg tablet 20 mg PO DAILY 06/14/22 06/14/22 Unknown History insulin NPH isoph U-100 human 100 20 unit SUBCUT BID 06/14/22 06/14/22 Unknown History unit/mL subcutaneous suspension (Humulin N NPH U-100 Insulin (isophane susp)) Allergies Allergy/AdvReac Type Severity Reaction Status Date / Time No Known Allergies Allergy Verified 11/01/21 07:01 PFSH Acute PFSH: Medical History (Updated 06/14/22 @ 14:41 by Ben Culver MD) Blind left eye BPH (benign prostatic hyperplasia) CAD (coronary artery disease) Cellulitis Chronic atrial fibrillation Chronic kidney disease Constipation Diabetes mellitus, type II Elevated lactic acid level Frequent falls History of stroke Hypertension Osteoarthritis Peripheral arterial disease Right foot ulcer Surgical History 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 History of appendectomy History of cholecystectomy History of eye surgery History of partial ray amputation of second toe of right foot unknown if partial or complete, done in [place] possibly sometime recently though date unknown as of 04/14/20 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, Dr De Paz Family History Father CAD (coronary artery disease) Grandmother Diabetes Family/Other Diabetes Denies family history of Clotting disorder Dementia Chronic kidney disease (CKD) Suicide Anesthesia complication Bleeding disorder Lung disease Cancer Stroke Social History Smoking and tobacco status: never smoked Alcohol intake: never Household members: spouse and children Marital status: Vitals/I&O/Wt Last Vital Signs Pulse 101 H 06/14/22 11:43 Resp 17 06/14/22 11:43 BP 144/111 06/14/22 11:43 Pulse Ox 93 06/14/22 11:43 O2 Del Method Nasal Cannula 06/14/22 11:43 O2 Flow Rate 1 06/14/22 11:43 06/13/22 06/14/22 06/14/22 22:59 06:59 14:59 Intake Total 500 / 500 Balance 500 / 500 Physical Exam Narrative: General exam demonstrates a pleasant and interactive male. Pain is under fair control currently. HEENT: Left pupil is obscured with cataract. Head appears atraumatic. Oropharynx is clear Neck is supple no lymphadenopathy thyromegaly Cardiovascular irregular, irregular with a 2/6 systolic murmur Lungs clear but with diminished breath sounds at the bases Abdomen is soft nontender positive bowel sounds. No obvious organomegaly exam was deferred Extremities no cyanosis clubbing or edema, cap refill brisk. 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 Skin no rash. Abrasions on both elbows Neuro no obvious focal deficits Data 06/14/22 09:15 06/14/22 09:15 Other Labs: Lactic acid is elevated at 2.3 with repeat of 1.7 LFTs are normal with exception of AST of 42 and alk phos of 154 CK is 617 Troponin 64 with repeat of 61 Albumin 4.0 Calcium 9.3 Urinalysis with greater than 100 whites, greater than 100 reds, 2+ protein and 4+ bacteria Abdomen and pelvis CT demonstrated comminuted fracture right dorsal pubic ramus, right subcapital hip fracture, enlarged prostate, no urinary obstruction Knee x-ray no fracture, arthritis seen in. I reviewed this as well Hip and pelvis demonstrated right subcapital hip fracture Chest x-ray demonstrated previous bypass surgery, no infiltrate by my read CT neck no fracture Previous echocardiogram, April 2021 demonstrated an EF of 45%, moderate mitral regurgitation EKG which I reviewed demonstrates atrial fibrillation with a rate of 101, normal axis, nonspecific ST-T wave changes, incomplete right bundle branch block Micro: Microbiology 06/14/22 11:32 Blood Culture - Preliminary Blood SPECIMEN COLLECTED 06/14/22 11:25 Blood Culture - Preliminary Blood SPECIMEN COLLECTED A&P Assessment and plan (1) Closed right hip fracture: Patient with closed right hip fracture status post fall, subcapital N.p.o. after midnight Orthopedic consultation Bedrest Pain control (2) Fracture of right inferior pubic ramus: On CT abdomen inferior pubic rami fracture also noted, without significant displacement. (3) UTI (urinary tract infection): Patient appears to have significant UTI Urine and blood cultures ordered Rocephin initiated 1 g IV every 24 hours Keep Aggarwal in currently secondary to hip fracture (4) Acute kidney injury: Patient with acute kidney injury. This is likely secondary to fall and him being down for the night Continue Aggarwal Hydration Recheck renal function tomorrow (5) Hyperkalemia: Likely secondary to acute kidney injury Hold GINA inhibitor Repeat potassium around 1800 in the form of a BMP to see if renal function is improving as well. (6) Rhabdomyolysis: Patient with rhabdomyolysis likely from fall and being down Repeat CK tomorrow Fluids at 75 cc an hour. Somewhat cautious secondary to history of coronary disease and CHF with last EF being 45% with moderate mitral regurgitation Hold statin at this time (7) Elevated troponin: Type II elevation. Myocardial infarction not suspected (8) Chronic atrial fibrillation: Patient has chronic atrial fibrillation Restart his beta-talita Add aspirin secondary to his history of heart disease. Not candidate for full anticoagulation with his frequent falls. (9) Diabetes mellitus with diabetic polyneuropathy: Sliding scale insulin Qualifiers: Diabetes mellitus type: type 2 Diabetes mellitus residential insulin use: with intermodal customer service use Qualified Code(s): E11.42 - Type 2 diabetes mellitus with diabetic polyneuropathy; Z79.4 - intermediate (current) use of insulin (10) Fall: Patient with history of frequent falls Physical therapy evaluation following surgery Likely falls are from a multitude of causes. This could be secondary to his neuropathy, partial foot amputation, vision difficulties or others. Continue to observe closely in the hospital Plan Multiple other medical problems as outlined in past medical history Heparin subcu now for DVT prophylaxis. 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 Reevaluate then Allow natural . Discussed in detail with family and patient Attestations Medical Necessity Statement*: Will require greater than 2 midnight stay for evaluation and treatment of hip fracture, fall, rhabdo, etc. Diagnoses Closed right hip fracture S72.001A Fracture of right inferior pubic ramus S32.591A UTI (urinary tract infection) N39.0 Acute kidney injury N17.9 Hyperkalemia E87.5 Rhabdomyolysis M62.82 Elevated troponin R77.8 Chronic atrial fibrillation I48.20 Diabetes mellitus with diabetic polyneuropathy E11.42; Z79.4 Diabetes mellitus type: type 2 Diabetes mellitus intermodal customer service insulin use: with residential use Fall W19.XXXA Time Spent (min) 68
--- NOTE | 2022-06-14 15:33 | ECG_ITS ---
[facility] Test Date: 2022-06-14 Pat Name: Frank Espinal Department: Room: 256 Gender: Male First Assist: : 1935 Requested By: Ina Mott Order Number: [id number] Feng MD: Edilson Escalante M.D. Measurements Intervals [place] Rate: 92 P: 0 [place]: 0 QRS: 26 QRSD: 99 T: 119 QT: 389 QTc: 482 Interpretive Statements ATRIAL FLUTTER/TACHYCARDIA WITH ABERRANT CONDUCTION OR VENTRICULAR PREMATURE COMPLEXES INCOMPLETE RIGHT BUNDLE BRANCH BLOCK [90+ ms QRS DURATION, TERMINAL R IN V1/V2, 40+ ms S IN I/aVL/V4/V5/V6] MODERATE T-WAVE ABNORMALITY, CONSIDER INFERIOR ISCHEMIA [-0.1+ mV T-WAVE IN II/aVF] Compared to ECG 06/14/2022 10:46:20 Ventricular premature complex(es) now present Aberrant conduction of supraventricular beat(s) now present Possible ischemia now present Atrial fibrillation no longer present T-wave abnormality still present Electronically Signed On 06-14-2022 21:13:49 CDT by Edilson Escalante M.D. [id number]
[2022-06-14 16:02] LABS: Troponin 5 6HR 73.47 ng/L (0-15)
[2022-06-14 16:03] LABS: Anion Gap 19.7 (5-19); Blood Urea Nitrogen 36 mg/dL (8-23); Calcium 8.5 mg/dL (8.5-10.5); Carbon Dioxide 17 mmol/L (22-29); Chloride 105 mmol/L (98-107); Glucose 223 mg/dL (65-115); Osmolality Calculated 299 mOsm/kg (285-295); Potassium 4.7 mmol/L (3.5-5.1); Sodium 137 mmol/L (136-145); Troponin 5 6HR Delta 9.47 ng/L (0-12)
--- NOTE | 2022-06-14 17:14 | P.CONIM_ITS ---
Providers/Reason For Consult Consulting Physician/Specialty*: Zayra Evans MD Reason for Consult*: Right subcapital hip fracture Requesting Physician: Dr. Neptali Nava Attending Physician: Ben Culver MD Primary Care Provider: Carlos Nagy MD History of Present Illness History of Present Illness Frank Espinal is a 86 year old male who presented to the emergency room department today after a fall. Exact details of the fall are unknown, except it is believed that the patient was on the floor following the fall for a minimum of 12 hours. He has had frequent falls in the past with the last 1 being sl ightly less than a week ago, and normally, they occur approximately once every 2 weeks. Medical conditions include chronic atrial fibrillation, but given his fall history, he is not a candidate to be anticoagulated. Following his fall last evening, he could not get up and was found this morning. He was unable to weight-bear. The family states his falls are secondary to a partial right foot amputation, neuropathy, and significant visual impairment. Review of Systems General: Reports: 10 or more systems reviewed and unremarkable except in HPI and below and Other (patient is a poor historian so I question the accuracy of his answers) Const: Denies: fever(s), chills or body aches Eyes: Reports: other (Family poor vision, blind in left eye) ENMT: Denies: nasal discharge, nasal congestion or sinus pain Card: Reports: lightheadedness; Denies: chest pain, palpitations, irregular heart rhythm, edema, dyspnea on exertion or orthopnea Resp: Denies: dyspnea, productive cough or non-productive cough GI: Denies: abdominal pain, nausea, vomiting or diarrhea : Reports: dysuria and urinary incontinence (chronic); Denies: flank pain or hematuria Musc: Reports: joint pain (R knee); Denies: neck pain or back pain Neuro: Reports: frequent falls and dizziness; Denies: headache(s) All/Imm: Denies: acute wheezing Medications/Allergies Home Medications Medication Instructions Recorded Confirmed Last Taken Type cholecalciferol (vitamin D3) 25 25 mcg PO DAILY 01/04/22 06/14/22 1 Week Ago History mcg (1,000 unit) tablet (Vitamin ~12/28/21 D3) [id number]-habjznbu-gcjqov 1 tab PO DAILY 01/04/22 06/14/22 Unknown History tablet (Multivitamin 50 Plus tablet) amlodipine 10 mg tablet 10 mg PO DAILY #30 tabs 05/23/22 06/14/22 Unknown Rx lisinopril 20 mg tablet 20 mg PO DAILY #90 tabs 05/23/22 06/14/22 Unknown Rx metoprolol succinate 25 mg 25 mg PO DAILY #90 tabs 05/23/22 06/14/22 Unknown Rx tablet,extended release 24 hr tamsulosin 0.4 mg capsule 0.4 mg PO DAILY #30 caps 05/23/22 06/14/22 Unknown Rx atorvastatin 20 mg tablet 20 mg PO DAILY 06/14/22 06/14/22 Unknown History insulin NPH isoph U-100 human 100 20 unit SUBCUT BID 06/14/22 06/14/22 Unknown History unit/mL subcutaneous suspension (Humulin N NPH U-100 Insulin (isophane susp)) Allergies Allergy/AdvReac Type Severity Reaction Status Date / Time No Known Allergies Allergy Verified 11/01/21 07:01 Current Medications Generic Name Dose Route Start Last Admin Trade Name Freq PRN Reason Stop Dose Admin Sodium Chloride 1,000 mls @ 75 mls/hr 06/14/22 11:00 06/14/22 11:39 Sodium Chloride 0.9% IV 75 mls/hr .[id number] MICK Administration PFSH Acute PFSH: Medical History (Updated 06/14/22 @ 19:55 by Zayra Evans MD) Blind left eye BPH (benign prostatic hyperplasia) CAD (coronary artery disease) Cellulitis Chronic atrial fibrillation Chronic kidney disease Constipation Diabetes mellitus, type II Elevated lactic acid level Frequent falls History of stroke Hypertension Osteoarthritis Peripheral arterial disease Right foot ulcer Surgical History 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 History of appendectomy History of cholecystectomy History of eye surgery History of partial ray amputation of second toe of right foot unknown if partial or complete, done in [place] possibly sometime recently though date unknown as of 04/14/20 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, [address] De Paz Family History Father CAD (coronary artery disease) Grandmother Diabetes Family/Other Diabetes Denies family history of Clotting disorder Dementia Chronic kidney disease (CKD) Suicide Anesthesia complication Bleeding disorder Lung disease Cancer Stroke Social History Smoking and tobacco status: never smoked Alcohol intake: never Household members: spouse and children Marital status: Dietary Habits: Current diet type/program: regular Vitals/I&O/Wt Last Vital Signs Temp 97.6 F 06/14/22 16:00 Pulse 83 06/14/22 16:00 Resp 16 06/14/22 16:00 BP 145/52 06/14/22 16:00 Pulse Ox 90 06/14/22 16:00 O2 Del Method Room Air 06/14/22 14:20 O2 Flow Rate 1 06/14/22 11:43 06/14/22 06/14/22 06/14/22 06:59 14:59 22:59 Intake Total 500 / 500 50 / 550 Balance 500 / 500 50 / 550 Physical Exam Const: COMMON NORMALS: no acute distress, average body habitus, patient oriented x3 and alert GENERAL APPEARANCE: cooperative and comfortable ORIENTATION/CONSCIOUSNESS: Yes awake HENMT: COMMON NORMALS: normocephalic and atraumatic HEAD & SCALP: normocephalic and atraumatic Eye: COMMON NORMALS: negative for EOMs intact bilaterally GENERAL EYE: no appearance normal, both eyes and all related structures OTHER: Patient has a left eye cloudiness consistent with cataract, and he is blind in his right eye as well. Chest: COMMONS NORMALS: normal inspection of the chest Resp: COMMON NORMALS: normal respiratory effort EFFORT & INSPECTION: Yes able to speak in complete sentences and Yes symmetric chest movement Extremity: RIGHT LOWER EXTREMITY: Yes hip joint (The right leg is shortened and externally rotated) Right hip: Yes inspection (No significant ecchymosis or swelling about the hip), Yes ROM (Not evaluated due to fracture.) and Yes neurovascular exam (Neuropathic.) and Yes foot & digits (All 5 toes amputated from the right foot) Neuro: COMMON NORMALS: patient oriented x3 SENSORIUM/ORIENTATION: Yes alert Psych: COMMON NORMALS: mental status grossly normal APPEARANCE: Yes grossly normal ATTITUDE: Yes calm and Yes engaged ATTENTION/CONCENTRATION: Yes attention grossly intact Skin: COMMON NORMALS: no rashes or lesions noted GENERAL SKIN EXAM: no rashes or lesions noted Data 06/14/22 09:15 06/14/22 15:30 Micro: Microbiology 06/14/22 11:32 Blood Culture - Preliminary Blood SPECIMEN COLLECTED 06/14/22 11:25 Blood Culture - Preliminary Blood SPECIMEN COLLECTED Xray Ortho: My impression: I have personally reviewed the imaging studies of the right hip and right knee. The right knee demonstrates significant degenerative osteoarthritis without acute fracture. The right hip demonstrates an acute subcapital fracture with significant displacement and shortening. A&P Assessment and plan (1) Subcapital fracture of right hip: Patient was admitted after a fall and inability to ambulate. He had laid on the floor overnight and has the multiple problems below associated with this. The patient is seen and evaluated along with his x-rays. He has a displaced right subcapital hip fracture with the treatment of choice a bipolar hip arthroplasty. This was discussed with the patient. He understands the treatment, and he also understands that we cannot proceed until medically he is optimized. At the earliest, this will be tomorrow, but it may be in the following days after that. Qualifiers: Encounter type: initial encounter Fracture type: closed Qualified Code(s): S72.011A - Unspecified intracapsular fracture of right femur, initial encounter for closed fracture (2) Rhabdomyolysis: (3) Hyperkalemia: (4) Acute kidney injury: Coding Level of Care Code Acute Code for [facility] Diagnoses Subcapital fracture of right hip S72.011A Encounter type: initial encounter Fracture type: closed Rhabdomyolysis M62.82 Hyperkalemia E87.5 Acute kidney injury N17.9
[2022-06-14] MEDS: metoprolol succinate ER (24 HR) 25 mg Tablet PO (17:22)
[2022-06-14] MEDS: heparin 5,000 unit/mL INJ 1 mL 5000 UNIT SUBCUT (17:22)
[2022-06-15] VITALS (19 sets, daily range): BP systolic 121–169; BP diastolic 59–90; PULSE 52–104; RESP 14–21; TEMP 36.2–37.6; O2SAT 90–99
[2022-06-15 05:43] LABS: Basophils % 0.3 %; Eosinophils # 0.4 10^3/uL (0.0-0.8); Eosinophils % 3.9 %; Hematocrit 35.3 % (42.0-52.0); Hemoglobin 11.3 g/dL (11.7-16.6); Lymphocytes # 1.7 10^3/uL (0.8-4.8); Lymphocytes % 15.5 %; Mean Corpuscular Hemoglobin 31.1 pg (28.0-34.0); Mean Corpuscular Volume 97.2 fl (80-94); Mean Platelet Volume 9.8 fL (7.4-10.4); Monocytes # 0.8 10^3/uL (0.2-0.9); Monocytes % 7.4 %; Neutrophils # 7.78 10^3/uL (1.8-7.7); Neutrophils % 72.4 %; Nucleated Red Blood Cells % 0 %; Platelet Count 296 10^3/cmm (130-400); Red Blood Count 3.63 10^6/uL (4.1-5.3); Red Cell Distribution Width 13.2 % (12.1-15.1); White Blood Count 10.7 10^3/uL (4.0-10.0)
[2022-06-15 06:02] LABS: Alanine Aminotransferase 31 U/L (0-41); Albumin Level 3.1 g/dL (3.5-5.2); Alkaline Phosphatase 112 U/L (40-130); Anion Gap 16.7 (5-19); Aspartate Amino Transferase 43 U/L (0-40); Blood Urea Nitrogen 30 mg/dL (8-23); Calcium 8.2 mg/dL (8.5-10.5); Carbon Dioxide 18 mmol/L (22-29); Chloride 109 mmol/L (98-107); Globulin 3.5 g/dL (1.3-4.6); Glucose 237 mg/dL (65-115); Magnesium 2.1 mg/dL (1.7-2.3); Osmolality Calculated 302 mOsm/kg (285-295); Potassium 4.7 mmol/L (3.5-5.1); Sodium 139 mmol/L (136-145); Total Bilirubin 0.7 mg/dL (0.15-1.2); Total Protein 6.6 g/dL (6.6-8.7)
[2022-06-15 06:16] LABS: Creatine Phosphokinase 959 U/L (39-308)
--- NOTE | 2022-06-15 08:00 | PM.PN ---
Subjective Subjective: Frank reports he is doing okay. Some mild confusion at times. Redirects easily. Reports some leg pain. Denies any chest pain or shortness of breath. I discussed his case, and plan with his son this morning. Medications: Reviewed: Yes Vitals/I&O/Wt Last Vital Signs Temp 98.3 F 06/15/22 04:00 Pulse 52 L 06/15/22 04:00 Resp 18 06/15/22 04:00 BP 158/62 06/15/22 04:00 Pulse Ox 92 06/15/22 04:00 O2 Del Method Room Air 06/15/22 04:00 O2 Flow Rate 0 06/14/22 20:00 06/14/22 06/15/22 06/15/22 22:59 06:59 14:59 Intake Total 150 / 650 1000 / 1000 Output Total 700 / 700 250 / 950 Balance -550 / -50 -250 / -300 1000 / 1000 Physical Exam Narrative: General exam no distress, conversant and pleasant Neck is supple no lymphadenopathy thyromegaly Cardiovascular irregular, irregular with a 2/6 systolic murmur Lungs clear but with diminished breath sounds at the bases Abdomen is soft nontender positive bowel sounds. No obvious organomegaly Extremities no cyanosis clubbing or edema, cap refill brisk. 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 Skin no rash. Abrasions on both elbows Neuro no obvious focal deficits Data 06/15/22 05:06 06/15/22 05:06 Micro: Microbiology 06/14/22 11:32 Blood Culture - Preliminary Blood SPECIMEN COLLECTED 06/14/22 11:25 Blood Culture - Preliminary Blood SPECIMEN COLLECTED A&P Assessment and plan (1) Closed right hip fracture: Patient with closed right hip fracture status post fall, subcapital Orthopedics consultation appreciated Bedrest Pain control Surgery likely today. He is as optimized medically as we can get him currently. Risks discussed with the family in detail. (2) Fracture of right inferior pubic ramus: On CT abdomen inferior pubic rami fracture also noted, without significant displacement. (3) UTI (urinary tract infection): Patient appears to have significant UTI Urine and blood cultures ordered He has remained afebrile White blood cell count is decreasing Continue Rocephin initiated 1 g IV every 24 hours Keep Aggarwal in currently secondary to hip fracture (4) Acute kidney injury: Patient with acute kidney injury. This is likely secondary to fall and him being down for the night Continue Aggarwal Continue hydration Renal function is improved. Recheck tomorrow (5) Hyperkalemia: Likely secondary to acute kidney injury Hold GINA inhibitor This is improved, and normal today (6) Rhabdomyolysis: Patient with rhabdomyolysis likely from fall and being down CK slightly higher as expected Continue fluids at 75 cc an hour. Somewhat cautious secondary to history of coronary disease and CHF with last EF being 45% with moderate mitral regurgitation Hold statin at this time Repeat CK tomorrow (7) Elevated troponin: Type II elevation. Myocardial infarction not suspected (8) Chronic atrial fibrillation: Patient has chronic atrial fibrillation Continue beta-talita Add aspirin secondary to his history of heart disease. Not candidate for full anticoagulation with his frequent falls. 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 This could be secondary to his neuropathy, partial foot amputation, vision difficulties or others. Continue to monitor closely in the hospital with fall precautions Plan Multiple other medical problems as outlined in past medical history 1 dose of heparin given on admission. Orthopedics will initiate further DVT prophylaxis following surgery Allow natural . Discussed in detail with family and patient See below medical necessity statement Risks and benefits of surgery discussed in detail with family Attestations Medical Necessity Statement*: Needs continued hospitalization for follow-up of acute kidney injury, treatment of UTI with IV antibiotics, hydration for rhabdo with close follow-up of CK and prevention of fluid overload secondary to his ischemic cardiomyopathy with underlying EF of 45% Diagnoses Closed right hip fracture S72.001A Fracture of right inferior pubic ramus S32.591A UTI (urinary tract infection) N39.0 Acute kidney injury N17.9 Hyperkalemia E87.5 Rhabdomyolysis M62.82 Elevated troponin R77.8 Chronic atrial fibrillation I48.20 Diabetes mellitus with diabetic polyneuropathy E11.42; Z79.4 Diabetes mellitus type: type 2 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
[2022-06-15] MEDS: sodium chloride 0.9% 1,000 ML 75 ML IV (09:35)
[2022-06-15] MEDS: cefTRIAXone 1,000 MG in sodium chloride 0.9% (plus) 50 ML 100 MG IV (09:36)
[2022-06-15] MEDS: sodium chloride 0.9% 1,000 ML 30 ML IV (11:01)
--- NOTE | 2022-06-15 11:01 | PC.CHAP ---
Pastoral Care Encounter/Spiritual Assessment Type of Contact [] Declined nuclear process engineer visit [] Patient/Family/Request visit [] Outpatient visit [] Follow-up visit [] Physician referral [] Code/Alert [x] Routine visit [] Staff referral [] Actively dying [] Patient sleeping [] Family support [] [] Out of room [] Palliative care [] [] Receiving care in room [] Pre-surgical visit [] Trauma [] Long length of stay [] ICU visit [] Other: Relational/Emotional Strength [] Patient feels connected with others/family/visitors/staff [] Distress [] Loneliness/isolation [] Abandonment Spirituality of Patient [x] Person of Devi [] Attends Anabaptist of their Devi [x] Believes in Prayer [] Reads Bible or Orthodoxy materials [] There are Spiritual issues to be addressed Layer Up Interventions [x] Prayer [] Active listening [] Non-anxious presence [] Spiritual/emotional support [] Crisis/trauma care [] Spiritual counseling [] Bereavement support [] Provided bereavement packet [] Provided Bible/devotional materials [] Provided toy/stuffed animal, coloring book to patient or family member [] Provided Communion [] Anointing/[place] [] Salvation []x Completed spiritual assessment [] Other: Impact on Illness or Injury [] Angry [] Fearful [] Anxious [] Often cries [] Exhaustion [] Unable to work [] Unable to attend mu-ism [] Unable to walk/stand [] Unable to read [] Unable to drive [] Unable to eat/drink [] Unable to sleep [] Unable to be with family [] Patient intubated [] Other: Summary Time spent with patient 10 min
--- NOTE | 2022-06-15 11:11 | P.ANESASSM_ITS ---
Pre-Anesthetic Assessment Height/Weight: Height 1.83 m Temp Pulse Resp BP Pulse Ox O2 Del Method O2 Flow Rate 99.6 F 92 18 169/88 92 Room Air 0 06/15/22 10:43 06/15/22 10:43 06/15/22 10:43 06/15/22 10:43 06/15/22 10:43 06/15/22 10:43 06/14/22 20:00 Preop Diagnosis: Right subcapital hip fracture Operation Date: 06/15/22 13:50 Proposed Procedures p Hemiarthroplasty Hip(Right) - Zayra Evans MD Familial anesthetic complications: none Was Beta Edmar taken within 24 hours: Yes Was Clonidine taken within 24 hours: N/A Last intake: Intake Last Liquid Date 06/14/22 Last Liquid Time 21:00 Last Solid Date 06/14/22 Last Solid Time 21:00 Last Intake: 21:00 Social No alcohol and No tobacco Exam alert, oriented x 3, clear to auscultation bilaterally and regular rate & rhythm (irreg HB, chronic AF) Airway Submandibular: within normal limits Cervical ROM: within normal limits Mallampati: Class II Dentition: full (poor chipped, decayed, multiple missing) Pulmonary None reported CV/HEM Atrial Fibrillation, Coronary Artery Disease (hx CABG), Congestive Heart Failure and Hypertension Chronic Renal Insufficiency fell at home in in floor overnight with rhabdo Hepatic None reported GI None reported Metabolic Diabetes Mellitus Musc/skel Lower Back Pain, Osteoarthritis/DJD and Weakness unsteady on feet with frequent falls, pt blind Neuropsych Syncope Anesthetic Plan ASA status: 4 Anesthesia: General and Regional (specify below) (SAB) Risk of > 500 ml blood loss (7ml/kg in children): Yes, adequate IV access and fluids planned Medications/Allergies Home Medications Medication Instructions Recorded Confirmed Last Taken Type cholecalciferol (vitamin D3) 25 25 mcg PO DAILY 01/04/22 06/14/22 1 Week Ago History mcg (1,000 unit) tablet (Vitamin ~12/28/21 D3) qunkulfvgkee-xadvssvz-hneamd 1 tab PO DAILY 01/04/22 06/14/22 Unknown History tablet (Multivitamin 50 Plus tablet) amlodipine 10 mg tablet 10 mg PO DAILY #30 tabs 05/23/22 06/14/22 Unknown Rx lisinopril 20 mg tablet 20 mg PO DAILY #90 tabs 05/23/22 06/14/22 Unknown Rx metoprolol succinate 25 mg 25 mg PO DAILY #90 tabs 05/23/22 06/14/22 Unknown Rx tablet,extended release 24 hr tamsulosin 0.4 mg capsule 0.4 mg PO DAILY #30 caps 05/23/22 06/14/22 Unknown Rx atorvastatin 20 mg tablet 20 mg PO DAILY 06/14/22 06/14/22 Unknown History insulin NPH isoph U-100 human 100 20 unit SUBCUT BID 06/14/22 06/14/22 Unknown History unit/mL subcutaneous suspension (Humulin N NPH U-100 Insulin (isophane susp)) Allergies Allergy/AdvReac Type Severity Reaction Status Date / Time Penicillins Allergy ALGY-Rash Verified 06/15/22 11:06 Current Medications Generic Name Dose Route Start Last Admin Trade Name Freq PRN Reason Stop Dose Admin Sodium Chloride 1,000 mls @ 75 mls/hr 06/14/22 11:00 06/15/22 09:35 Sodium Chloride 0.9% IV 75 mls/hr .[id number] MICK Administration Ceftriaxone Sodium 1,000 mg/ 50 mls @ 100 mls/hr 06/15/22 09:00 06/15/22 10 :17 Sodium Chloride IV Infused Q24H MICK Infusion Protocol Sodium Chloride 1,000 mls @ 30 mls/hr 06/15/22 11:00 06/15/22 11:01 Sodium Chloride 0.9% IV 06/16/22 10:59 30 mls/hr .Q24H MICK Administration Metoprolol Succinate 25 mg 06/14/22 12:40 06/14/22 17:22 Metoprolol Succinate Er (24 Hr) 25 Mg Tablet PO 25 mg DAILY MICK Administration [facility] Anesthesia Medical History (Updated 06/14/22 @ 19:55 by Zayra Evans MD) Blind left eye BPH (benign prostatic hyperplasia) CAD (coronary artery disease) Cellulitis Chronic atrial fibrillation Chronic kidney disease Constipation Diabetes mellitus, type II Elevated lactic acid level Frequent falls History of stroke Hypertension Osteoarthritis Peripheral arterial disease Right foot ulcer Surgical History 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 History of appendectomy History of cholecystectomy History of eye surgery History of partial ray amputation of second toe of right foot unknown if partial or complete, done in [place] possibly sometime recently though date unknown as of 04/14/20 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, Dr D ePaz Family History Father CAD (coronary artery disease) Grandmother Diabetes Family/Other Diabetes Denies family history of Clotting disorder Dementia Chronic kidney disease (CKD) Suicide Anesthesia complication Bleeding disorder Lung disease Cancer Stroke Social History Smoking and tobacco status: never smoked Alcohol intake: never Household members: spouse and children Marital status: Data Anesthesia 06/15/22 05:06 06/15/22 05:06 Short CBC 06/14/22 06/15/22 Range/Units 09:15 05:06 WBC 13.4 H 10.7 H (4.0-10.0) 10^3/uL Hgb 13.3 11.3 L (11.7-16.6) g/dL Hct 41.6 L 35.3 L (42.0-52.0) % MCV 95.0 H 97.2 H (80-94) fl Plt Count 372 296 (130-400) 10^3/cmm Neut % (Auto) 81.7 72.4 % Neut # (Auto) 10.93 H 7.78 H (1.8-7.7) 10^3/uL BMP 06/14/22 06/14/22 06/15/22 09:15 15:30 05:06 Sodium 138 137 139 Potassium 5.3 H 4.7 4.7 Chloride 102 105 109 H Carbon Dioxide 17 L 17 L 18 L BUN 38 H 36 H 30 H Creatinine 1.8 H 1.7 H 1.4 H Glucose 214 H 223 H 237 H Calcium 9.3 8.5 8.2 L Cardiac Enzymes 06/14/22 06/14/22 06/14/22 Range/Units 09:15 09:15 11:15 Creatine Kinase 617 H* (39-308) U/L CK-MB (CK-2) 9.6 (0-10.4) ng/mL CK-MB (CK-2) Rel Index 1.5 (0.0-5.3) % Troponin T Baseline 64 H (0-15) ng/L Troponin T 120 Minute 61.14 H (0-15) ng/L Delta Troponin T -2.86 L (0-10) ABS# Troponin T Hi Sens 6Hr (0-15) ng/L Troponin T Hi Sens 6Hr Delta (0-12) ng/L 06/14/22 06/15/22 Range/Units 15:30 05:06 Creatine Kinase 959 H* (39-308) U/L CK-MB (CK-2) (0-10.4) ng/mL CK-MB (CK-2) Rel Index (0.0-5.3) % Troponin T Baseline (0-15) ng/L Troponin T 120 Minute (0-15) ng/L Delta Troponin T (0-10) ABS# Troponin T Hi Sens 6Hr 73.47 H (0-15) ng/L Troponin T Hi Sens 6Hr Delta 9.47 (0-12) ng/L Liver Function 06/14/22 06/15/22 Range/Units 09:15 05:06 Total Bilirubin 1.0 0.7 (0.15-1.2) mg/dL AST 42 H 43 H (0-40) U/L ALT 37 31 (0-41) U/L Alkaline Phosphatase 154 H 112 (40-130) U/L Albumin 4.0 3.1 L (3.5-5.2) g/dL Urine 06/14/22 Range/Units 09:15 Urine Color Yellow (Yellow) Urine Appearance Cloudy A (CLEAR) Urine pH 9 H (5-7) Ur Specific [place] 1.010 (1.005-1.030) Urine Protein 2+ H (Negative) Urine Glucose (UA) Norm (Normal) Urine Ketones 1+ H (Negative) Urine Nitrate Negative (Negative) Urine Bilirubin Neg (Negative) Ur Leukocyte Esterase 2+ H (Negative) Urine RBC >100 H (0-2) /hpf Urine WBC >100 H (0-5) /hpf Microbiology 06/14/22 11:32 Blood Culture - Preliminary Blood SPECIMEN COLLECTED 06/14/22 11:25 Blood Culture - Preliminary Blood SPECIMEN COLLECTED Cardiac Studies: Echocardiogram 04/26/21
[2022-06-15] MEDS: acetaminophen 1,000 MG/100 ML PIGGYBACK 400 MG IV ×2 (11:16→19:53)
[2022-06-15] MEDS: gabapentin 300 mg Capsule PO (11:19)
[2022-06-15] MEDS: ceFAZolin 2,000 MG in sodium chloride 0.9% (plus) 50 ML 100 MG IV ×2 (11:57→19:52)
[2022-06-15] MEDS: ceFAZolin 1,000 mg SDV 1000 MG (13:30)
[2022-06-15] MEDS: vancomycin 1,000 MG SDV 1000 MG IRRIGATION (13:30)
--- NOTE | 2022-06-15 14:19 | P.OP_ITS ---
Operative Report Date of procedure: June 15, 2022 Pre-op diagnosis: Right subcapital hip fracture, displaced Post-op diagnosis: Right subcapital hip fracture, displaced Post-op findings: Significantly displaced right subcapital hip fracture with shortening of the lower extremity. ? Procedure done: Right hip hemiarthroplasty, bipolar Implants: The Lana bipolar hip arthroplasty system with an Accolade II 127 degree neck angle hip system size 8 with a V40 taper, a size 54 mm outer diameter by 28 mm inner diameter universal bipolar component head, and a 28 mm outer diameter by - 4 mm offset femoral head Specimens removed/disposition: Femoral head, disposed of Surgeon: Zayra Evans Weight Recorder[facility] Anesthesia: General (Intubated, ASA 4) Estimated blood loss (mL): 200 IV fluids (mL): 1,000 Urine output (mL): 100 Complications: None Findings: Shortened right lower extremity with displaced subcapital hip fracture. The hip was stable at 90 degrees of flexion with 80 degrees of internal rotation and 30 degrees of adduction. Condition: stable Disposition: PACU (Then to floor for postoperative rehabilitation and pain management) Brief History: Frank Espinal is a 86 year old male who presented to the emergency room department today after a fall.? Exact details of the fall are unknown, except it is believed that the patient was on the floor following the fall for a minimum of 12 hours.? He has had frequent falls in the past with the last 1 being slightly less than a week ago, and normally, they occur approximately once every 2 weeks.? Medical conditions include chronic atrial fibrillation, but given his fall history, he is not a candidate to be anticoagulated.? Following his fall last evening, he could not get up and was found this morning.? He was unable to weight-bear.? The family states his falls are secondary to a partial right foot amputation, neuropathy, and significant visual impairment. Preoperatively, it was discussed with the patient that he would require surgical intervention for treatment of this fracture. This is a bipolar hip arthroplasty, and the risks and complications were explained to him. He understood and consented to the surgical procedure. Questions were answered and consents were signed. Procedure: The patient was brought to the operating theater, and after undergoing adequate general intubated anesthesia, ASA 4, was transferred to the operating room table. The patient was placed in the full lateral position and held in place with the pegboard. Patient's right lower extremity was draped free and was subsequently prepped and further draped free. A surgical pause was performed prior to commencement of the surgical procedure. During the surgical pause, we confirmed the site and side of surgery as well as administration of preoperative prophylactic antibiotic and availability of equipment. Additionally, we confirmed preoperative surgical markings. X-rays are also reviewed during this time. Following the surgical pause, an incision was made centering over the greater trochanter continuing proximally and distally as necessary to allow access to the hip joint. Dissection continued through skin and soft tissue using scalpel. Incision was obtained using electrocautery. Tensor fascia carmita was identified and incised longitudinally. Sciatic nerve was identified and protected throughout the surgical procedure. A Charnley U retractor was placed with care being taken to protect the sciatic nerve during placement.? It was very difficult to isolate the hip as the greater trochanter was significantly elevated above the level of the acetabulum.? There was contracture of the muscles in the area and at the knee.? The hip was internally rotated. Piriformis muscle was then identified, tagged, and subsequently incised from the posterior aspect of the hip joint. The remaining short external rotators were also incised. These were then elevated off the capsule and the capsule was entered in a T-type fashion. Each side of the capsule was then tagged.? The proximal femur was brought into an appropriate position of the femoral neck osteotomy was accomplished. This was in appropriate position for placement of the prosthetic component.? At that point, the femoral head was removed from the acetabulum utilizing a corkscrew.? It was subsequently measured for appropriate size of the head component.? The appropriate size trial was chosen. This was a size 54 mm which seated nicely.? We trialed a 53 mm as well as a 55 mm,, but this was felt to not give adequate stability.? Therefore size 54 mm was the chosen size for final implantation. Femoral home theatre technician was then placed and attention was directed to the proximal femur. Initially, the proximal femur was addressed with a box chisel, and this was followed by a canal finder and subsequently broaches. The hip was broached to a size 8 Accolade II 127 degree neck angle hip stem. Size 8 broach was noted to fit nicely and have good fit and fill. Therefore this was to be the chosen component. Trial reduction was accomplished with a 54 mm bipolar cup shell and a 28 mm x -4 mm femoral head. With this, the above-noted stabilities were accomplished. This was felt to be appropriate and therefore trial components were removed and the hip was irrigated. Acetabulum was evaluated for any loose bodies or other soft tissues requiring resection. We then prepared for implantation. The hip stem was impacted into position, and onto this was placed the construct of the universal head bipolar component size 54 mm outer diameter by 28 mm inner diameter with a [place] femoral head size 28 mm outer diameter by -4 mm neck offset. This was placed onto the trunnion of the femoral component. It was impacted into position and pulled upon to assure that there was no dissociation. Once again the hip was irrigated and suctioned dry and was reduced. We then irrigated the hip further with 20 mL of Betadine mixed into 500 mL of normal saline. This was allowed to remain in the wound for approximately 3 minutes. It was then suctioned dry and irrigated with normal saline. This was suctioned dry again and closure was accomplished with 0 Vicryl in the capsular tissues followed by reattachment of the piriformis with 0 Vicryl. Additionally, the tensor was closed with 0 Vicryl in an interrupted fashion. Subcutaneous tissues were closed with a combination of 2-0 Monocryl. Skin was closed with 3-0 Monocryl. This was followed by Dermabbrandon [place]. A sterile dressing was placed consisting of OpSite. The patient was returned the Recovery Room in satisfactory condition.? He was placed in an abduction pillow.? There were no complications. The patient will be discharged to the floor for postoperative rehabilitation and pain management. Related Problem List Diagnoses (1) Subcapital fracture of right hip:
--- NOTE | 2022-06-15 14:36 | XRR_ITS ---
PROCEDURE INFORMATION: Exam: XR Pelvis Exam date and time: 06/15/2022 1:39 PM Age: 86 years old Clinical indication: Device placement; Other: Bipolar hip arthroplasty, prior surgery; Surgery date: Post-operative (0-2 days); Additional info: S/P bipolar hip arthroplasty, low ap pelvis TECHNIQUE: Imaging protocol: Radiologic exam of the pelvis. Views: 1 or 2 view. COMPARISON: CT kidney stone [id number] 06/14/2022 10:56 AM FINDINGS: Bones/joints: Generalized osteopenia.. No acute fracture. There is a metallic arthroplasty in the right hip in good position. Soft tissues: Unremarkable. XR/XR pelvis 1-2V* [id number] IMPRESSION: 1. No acute findings. 2. Metallic right hip arthroplasty in good position
--- NOTE | 2022-06-15 14:54 | ANE.PACU2 ---
Inpatient post-anesthesia follow up: Airway intact: Yes Vital signs: Temperature 97.1 F Pulse Rate 93 Respiratory Rate 17 Blood Pressure 143/90 Pulse Oximetry 96 Oxygen Delivery Me thod Room Air Oxygen Flow Rate 6 Fraction of Inspir ed Oxygen Hydration adequate: Yes Nausea and vomiting: No Pain level: 3 Mental status: Baseline
[2022-06-15 15:39] LABS: Glucose Point of Care 239 mg/dL (70-110)
[2022-06-15] MEDS: sennosides-docusate Tablet 2 TAB PO (19:47)
[2022-06-15] MEDS: oxyCODONE 5 mg IR Tab/Cap PO (19:48)
[2022-06-15] MEDS: calcium carbonate 500 mg Chew Tablet 1000 MG PO (19:50)
[2022-06-15] MEDS: chlorhexidine gluconate 0.12% Btl 473 mL 30 ML MUCOUS MEM (19:50)
[2022-06-15] MEDS: iron polysaccharide complex 150 mg Capsule PO (19:50)
[2022-06-15] MEDS: mupirocin oint 22 gm 1 APPLIC NASAL (20:36)
[2022-06-15] MEDS: lanolin oint 7 gm 1 APPLIC TOPICAL (20:37)
[2022-06-16] VITALS (11 sets, daily range): BP systolic 103–158; BP diastolic 58–72; PULSE 68–93; RESP 16–19; TEMP 36.5–36.9; O2SAT 93–100
[2022-06-16] MEDS: acetaminophen 1,000 MG/100 ML PIGGYBACK 400 MG IV ×2 (03:19→11:45)
[2022-06-16] MEDS: ceFAZolin 2,000 MG in sodium chloride 0.9% (plus) 50 ML 100 MG IV ×2 (03:19→12:48)
[2022-06-16] MEDS: heparin 5,000 unit/mL INJ 1 mL 5000 UNIT SUBCUT ×2 (03:20→14:36)
[2022-06-16 05:12] LABS: Basophils % 0.3 %; Eosinophils # 0.2 10^3/uL (0.0-0.8); Eosinophils % 2.1 %; Hemoglobin 9.8 g/dL (11.7-16.6); Lymphocytes # 1.6 10^3/uL (0.8-4.8); Lymphocytes % 15.1 %; Mean Corpuscular HGB Conc 31.6 g/dL (30.0-36.0); Mean Corpuscular Hemoglobin 31.1 pg (28.0-34.0); Mean Corpuscular Volume 98.4 fl (80-94); Mean Platelet Volume 10.1 fL (7.4-10.4); Monocytes # 0.7 10^3/uL (0.2-0.9); Monocytes % 6.9 %; Neutrophils # 7.79 10^3/uL (1.8-7.7); Neutrophils % 74.9 %; Nucleated Red Blood Cells % 0 %; Platelet Count 237 10^3/cmm (130-400); Red Blood Count 3.15 10^6/uL (4.1-5.3); Red Cell Distribution Width 13.3 % (12.1-15.1); White Blood Count 10.4 10^3/uL (4.0-10.0)
[2022-06-16 05:14] LABS: Anion Gap 17.4 (5-19); Blood Urea Nitrogen 30 mg/dL (8-23); Calcium 7.6 mg/dL (8.5-10.5); Carbon Dioxide 15 mmol/L (22-29); Chloride 105 mmol/L (98-107); Glucose 424 mg/dL (65-115); Osmolality Calculated 300 mOsm/kg (285-295); Potassium 4.4 mmol/L (3.5-5.1); Sodium 133 mmol/L (136-145)
[2022-06-16 05:27] LABS: Creatine Phosphokinase 724 U/L (39-308)
[2022-06-16] MEDS: oxyCODONE 5 mg IR Tab/Cap PO ×2 (05:54→11:46)
[2022-06-16] MEDS: sodium chloride 0.9% 1,000 ML 75 ML IV ×2 (05:54→20:48)
--- NOTE | 2022-06-16 06:02 | PC.NURSE ---
morris removed at 0600 without any complications, pt tolerated well.
--- NOTE | 2022-06-16 08:44 | ECG_ITS ---
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 Measurements Intervals [place] Rate: 129 P: 0 [place]: 0 QRS: 31 QRSD: 103 T: 81 QT: 362 QTc: 530 Interpretive Statements ATRIAL FIBRILLATION WITH RAPID VENTRICULAR RESPONSE WITH ABERRANT CONDUCTION OR VENTRICULAR PREMATURE COMPLEXES INCOMPLETE RIGHT BUNDLE BRANCH BLOCK [90+ ms QRS DURATION, TERMINAL R IN V1/V2, 40+ ms S IN I/aVL/V4/V5/V6] NONSPECIFIC ST & T-WAVE ABNORMALITY Compared to ECG 06/14/2022 15:33:52 Ventricular premature complex(es) now present Atrial flutter no longer present Possible ischemia no longer present T-wave abnormality still present Electronically Signed On 06-16-2022 10:29:04 CDT by Aleksandr Dela Cruz M.D. [id number]
[2022-06-16] MEDS: calcium carbonate 500 mg Chew Tablet 1000 MG PO ×2 (09:01→17:54)
[2022-06-16] MEDS: acetaminophen 325 mg Tablet 650 MG PO (09:01)
[2022-06-16] MEDS: metoprolol succinate ER (24 HR) 25 mg Tablet PO (09:01)
[2022-06-16] MEDS: tamsulosin 0.4 mg Capsule PO (09:01)
[2022-06-16] MEDS: multivitamin therapeutic Tablet 1 TAB PO (09:01)
[2022-06-16] MEDS: sennosides-docusate Tablet 2 TAB PO ×2 (09:01→17:54)
[2022-06-16] MEDS: cholecalciferol (vitamin D3) 1,000 unit Tablet 1000 UNIT PO (09:01)
[2022-06-16] MEDS: mupirocin oint 22 gm 1 APPLIC NASAL ×2 (09:02→17:55)
[2022-06-16] MEDS: aspirin 81 mg EC Tablet PO (09:02)
[2022-06-16] MEDS: iron polysaccharide complex 150 mg Capsule PO ×2 (09:02→17:54)
[2022-06-16] MEDS: amlodipine 10 mg Tablet PO (09:02)
[2022-06-16] MEDS: cefTRIAXone 1,000 MG in sodium chloride 0.9% (plus) 50 ML 100 MG IV (09:02)
[2022-06-16] MEDS: chlorhexidine gluconate 0.12% Btl 473 mL 30 ML MUCOUS MEM ×4 (09:14→20:48)
[2022-06-16] MEDS: metoprolol tartrate 1 mg/1 mL SDV 5 mL 5 MG IVP (10:06)
[2022-06-16 10:26] LABS: Troponin(5th) Baseline 89 ng/L (0-15)
--- NOTE | 2022-06-16 11:14 | ECG_ITS ---
[facility] Test Date: 2022-06-16 Pat Name: Frank Espinal Department: Room: 256 Gender: Male Strap Machine Operator: : 1935 Requested By: Joce Reyna Order Number: [id number] Feng MD: Aleksandr Dela Cruz M.D. Measurements Intervals [place] Rate: 95 P: 0 [place]: 0 QRS: 38 QRSD: 104 T: 92 QT: 404 QTc: 508 Interpretive Statements ATRIAL FIBRILLATION INCOMPLETE RIGHT BUNDLE BRANCH BLOCK [90+ ms QRS DURATION, TERMINAL R IN V1/V2, 40+ ms S IN I/aVL/V4/V5/V6] NONSPECIFIC ST & T-WAVE ABNORMALITY Compared to ECG 06/16/2022 08:56:29 Aberrant conduction of supraventricular beat(s) no longer present Ventricular premature complex(es) no longer present T-wave abnormality still present Electronically Signed On 06-16-2022 13:23:05 CDT by Aleksandr Dela Cruz M.D. [id number]
[2022-06-16] MEDS: metoprolol tartrate 25 mg Tablet PO ×2 (11:46→23:21)
[2022-06-16 11:53] LABS: Troponin 5 2HR 82.24 ng/L (0-15)
[2022-06-16 11:59] LABS: Glucose Point of Care 475 mg/dL (70-110)
[2022-06-16 12:05] LABS: Troponin 5 2HR Delta -6.76 ABS# (0-10)
[2022-06-16] MEDS: insulin lispro 100 unit/1 mL SUBCUT ×2 (12:48→17:54)
[2022-06-16 13:53] LABS: Glucose Point of Care 526 mg/dL (70-110)
[2022-06-16] MEDS: insulin lispro 100 unit/1 mL 10 UNIT SUBCUT (14:35)
--- NOTE | 2022-06-16 14:46 | P.PN_ITS ---
Subjective Subjective: patient was seen this morning, he is sitting up in a chair, complaining of pain, denies fever, denies cough Vitals/I&O/Wt Last Vital Signs Temp 97.9 F 06/16/22 12:00 Pulse 92 06/16/22 12:00 Resp 17 06/16/22 12:00 BP 124/62 06/16/22 12:00 Pulse Ox 97 06/16/22 12:00 O2 Del Method Room Air 06/16/22 04:00 O2 Flow Rate 6 06/15/22 14:29 06/15/22 06/16/22 06/16/22 22:59 06:59 14:59 Intake Total 1690 / 2890 150 / 3040 440 / 440 Output Total 450 / 1550 550 / 2100 Balance 1240 / 1340 -400 / 940 440 / 440 Physical Exam Const: COMMON NORMALS: no acute distress and patient oriented x3 Resp: COMMON NORMALS: normal respiratory effort, No retractions, No use of accessory muscles and clear to auscultation bilaterally AUSCULTATION: clear to auscultation bilaterally Cardio: COMMON NORMALS: regular rate, regular rhythm, S1 normal heart sound present and S2 normal heart sound present RATE: regular rate RHYTHM: regular rhythm HEART SOUNDS: S1 normal heart sound present and S2 normal heart sound present GI: COMMON NORMALS: Normal to inspection, nondistended, normoactive bowel sounds present and non-tender Extremity: COMMON NORMALS: no pedal edema Neuro: COMMON NORMALS: patient oriented x3 Psych: COMMON NORMALS: mental status grossly normal Data 06/16/22 04:18 06/16/22 04:18 Micro: Microbiology 06/14/22 09:15 Urine Culture - Final Urine,Clean Catch Proteus vulgaris 06/14/22 11:32 Blood Culture - Preliminary Blood NEGATIVE TO DATE 06/14/22 11:25 Blood Culture - Preliminary Blood NEGATIVE TO DATE A&P Assessment and plan (1) Closed right hip fracture: Patient with closed right hip fracture status post fall, subcapital s/p surgery pt/ot Pain control (2) Fracture of right inferior pubic ramus: On CT abdomen inferior pubic rami fracture also noted, without significant displacement. (3) UTI (urinary tract infection): Patient appears to have significant UTI Urine and blood cultures ordered He has remained afebrile White blood cell count is decreasing Continue Rocephin initiated 1 g IV every 24 hours Keep Aggarwal in currently secondary to hip fracture (4) Acute kidney injury: cr 1.4 This is likely secondary to fall and him being down for the night, rhabdomyolysis Continue Aggarwal Continue hydration Renal function is improved. Recheck tomorrow (5) Hyperkalemia: resolved Likely secondary to acute kidney injury Hold GINA inhibitor This is improved, and normal today (6) Rhabdomyolysis: Patient with rhabdomyolysis likely from fall and being down CK slightly higher as expected Continue fluids at 50 cc an hour. Somewhat cautious secondary to history of coronary disease and CHF with last EF being 45% with moderate mitral regurgitation Hold statin at this time Repeat CK tomorrow (7) Elevated troponin: Type II elevation. Myocardial infarction not suspected (8) Chronic atrial fibrillation: Patient has chronic atrial fibrillation, now with afib with rvr 1 dose ivp metoprolol increase metoprolol to 25mg BID Add aspirin secondary to his history of heart disease. Not candidate for full anticoagulation with his frequent falls. (9) Diabetes mellitus with diabetic polyneuropathy: Sliding scale insulin lantus 5 units subcut Qualifiers: Diabetes mellitus type: type 2 Diabetes mellitus terminal operations supervisor insulin use: with senior living use Qualified Code(s): E11.42 - Type 2 diabetes mellitus with diabetic polyneuropathy; Z79.4 - skilled nursing (current) use of insulin (10) Fall: Patient with history of frequent falls Physical therapy evaluation following surgery Likely falls are from a multitude of causes. This could be secondary to his neuropathy, partial foot amputation, vision difficulties or others. Continue to monitor closely in the hospital with fall precautions (11) Atrial fibrillation with RVR: -as above Plan Multiple other medical problems as outlined in past medical history heparin fro dvt prophylaxis Allow natural . Discussed in detail with family and patient See below medical necessity statement Attestations Medical Necessity Statement*: patient requires hospitalization for afib rvr, hyperglycemia, hip fracture, uti, rhabdomyolysis Coding Level of Care Code Acute Code for [facility] F[facility] Diagnoses Closed right hip fracture S72.001A Fracture of right inferior pubic ramus S32.591A UTI (urinary tract infection) N39.0 Acute kidney injury N17.9 Hyperkalemia E87.5 Rhabdomyolysis M62.82 Elevated troponin R77.8 Chronic atrial fibrillation I48.20 Diabetes mellitus with diabetic polyneuropathy E11.42; Z79.4 Diabetes mellitus type: type 2 Diabetes mellitus terminal operations supervisor insulin use: with senior living use Fall W19.XXXA Atrial fibrillation with RVR I48.91
--- NOTE | 2022-06-16 15:00 | ECG_ITS ---
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 Measurements Intervals [place] Rate: 76 P: 0 [place]: 0 QRS: 43 QRSD: 109 T: 102 QT: 454 QTc: 513 Interpretive Statements ATRIAL FIBRILLATION INCOMPLETE RIGHT BUNDLE BRANCH BLOCK [90+ ms QRS DURATION, TERMINAL R IN V1/V2, 40+ ms S IN I/aVL/V4/V5/V6] PROLONGED QT INTERVAL Compared to ECG 06/16/2022 12:00:58 Prolonged QT interval now present T-wave abnormality no longer present Electronically Signed On 06-17-2022 11:51:29 CDT by Aleksandr Dela Cruz M.D. [email or web address]/[id number]
[2022-06-16 15:21] LABS: Estmated Average Glucose 209; Hemoglobin A1C 8.9 % (4.0-6.0)
[2022-06-16 15:50] LABS: Glucose Point of Care 400 mg/dL (70-110)
--- NOTE | 2022-06-16 15:52 | PC.NURSE ---
Patients lunchtime blood glucose was 475. This nurse administered 14 units of insulin lispro. This nurse rechecked the patients blood glucose at 1350. Blood glucose was 526. notified and gave a one time telephone order of 10 units of insulin lispro. Patient was given 10 units of insulin lispro. This nurse rechecked the patients blood glucose at 1546 and it was 400. MD notified. No further orders at this time.
[2022-06-16 16:28] LABS: Troponin 5 6HR 74.35 ng/L (0-15)
[2022-06-16 16:59] LABS: Glucose Point of Care 400 mg/dL (70-110)
--- NOTE | 2022-06-16 17:11 | PM.PN ---
Subjective Subjective: Patient was resting comfortably in his bed. He was up in a chair to eat, but has not participated aggressively with physical therapy. Medications: Reviewed: Yes Vitals/I&O/Wt Last Vital Signs Temp 97.9 F 06/16/22 12:00 Pulse 68 06/16/22 16:00 Resp 16 06/16/22 16:00 BP 129/69 06/16/22 16:00 Pulse Ox 94 06/16/22 16:00 O2 Del Method Room Air 06/16/22 04:00 O2 Flow Rate 6 06/15/22 14:29 06/16/22 06/16/22 06/16/22 06:59 14:59 22:59 Intake Total 150 / 3040 440 / 440 Output Total 550 / 2100 Balance -400 / 940 440 / 440 Physical Exam Narrative: Patient is resting comfortably. According to nursing, his incision looks good. Data 06/16/22 04:18 06/16/22 04:18 Micro: Microbiology 06/14/22 09:15 Urine Culture - Final Urine,Clean Catch Proteus vulgaris A&P Assessment and plan (1) Subcapital fracture of right hip: Patient is status post bipolar hip arthroplasty. He is on posterior hip precautions and weightbearing as tolerated. At this point, he has not worked with physical therapy but has barely been up to a chair. We are awaiting placement for him so that he may optimize his postoperative rehabilitation. Qualifiers: Encounter type: initial encounter Fracture type: closed Qualified Code(s): S72.011A - Unspecified intracapsular fracture of right femur, initial encounter for closed fracture Attestations Medical Necessity Statement*: Ongoing care following hip fracture and prosthesis Coding Level of Care Code Acute Code for [facility] Diagnoses Subcapital fracture of right hip S72.011A Encounter type: initial encounter Fracture type: closed
[2022-06-16 18:30] LABS: Glucose Point of Care 318 mg/dL (70-110)
[2022-06-16] MEDS: acetaminophen 500 mg Tablet 1000 MG PO (20:48)
[2022-06-16] MEDS: insulin glargine 100 units/1 mL 5 UNIT SUBCUT (20:50)
[2022-06-16 20:53] LABS: Glucose Point of Care 232 mg/dL (70-110)
[2022-06-16 23:58] LABS: Glucose Point of Care 257 mg/dL (70-110)
[2022-06-17] VITALS (9 sets, daily range): BP systolic 131–145; BP diastolic 58–77; PULSE 81–113; RESP 14–23; TEMP 36.5–36.8; O2SAT 98–99
[2022-06-17 01:41] LABS: Glucose Point of Care 238 mg/dL (70-110)
[2022-06-17] MEDS: heparin 5,000 unit/mL INJ 1 mL 5000 UNIT SUBCUT ×2 (03:27→15:45)
[2022-06-17] MEDS: acetaminophen 500 mg Tablet 1000 MG PO ×3 (03:28→20:05)
[2022-06-17 04:44] LABS: Glucose Point of Care 257 mg/dL (70-110)
[2022-06-17 05:38] LABS: Basophils % 0.1 %; Eosinophils # 0.4 10^3/uL (0.0-0.8); Eosinophils % 2.4 %; Hematocrit 29.9 % (42.0-52.0); Hemoglobin 9.3 g/dL (11.7-16.6); Lymphocytes % 13.2 %; Mean Corpuscular HGB Conc 31.1 g/dL (30.0-36.0); Mean Corpuscular Volume 96.5 fl (80-94); Mean Platelet Volume 10.3 fL (7.4-10.4); Monocytes # 0.8 10^3/uL (0.2-0.9); Monocytes % 5.6 %; Neutrophils # 11.61 10^3/uL (1.8-7.7); Nucleated Red Blood Cells % 0 %; Platelet Count 273 10^3/cmm (130-400); Red Cell Distribution Width 13.7 % (12.1-15.1); White Blood Count 14.9 10^3/uL (4.0-10.0)
[2022-06-17 06:02] LABS: Anion Gap 13.7 (5-19); Blood Urea Nitrogen 29 mg/dL (8-23); Carbon Dioxide 16 mmol/L (22-29); Chloride 107 mmol/L (98-107); Glucose 271 mg/dL (65-115); Osmolality Calculated 291 mOsm/kg (285-295); Potassium 3.7 mmol/L (3.5-5.1); Sodium 133 mmol/L (136-145)
[2022-06-17] MEDS: oxyCODONE 5 mg IR Tab/Cap PO (06:24)
[2022-06-17 07:18] LABS: Glucose Point of Care 299 mg/dL (70-110)
[2022-06-17] MEDS: cefTRIAXone 1,000 MG in sodium chloride 0.9% (plus) 50 ML 100 MG IV (08:59)
[2022-06-17] MEDS: calcium carbonate 500 mg Chew Tablet 1000 MG PO ×2 (09:02→17:31)
[2022-06-17] MEDS: aspirin 81 mg EC Tablet PO (09:02)
[2022-06-17] MEDS: amlodipine 10 mg Tablet PO (09:02)
[2022-06-17] MEDS: iron polysaccharide complex 150 mg Capsule PO ×2 (09:02→17:31)
[2022-06-17] MEDS: multivitamin therapeutic Tablet 1 TAB PO (09:02)
[2022-06-17] MEDS: cholecalciferol (vitamin D3) 1,000 unit Tablet 1000 UNIT PO (09:02)
[2022-06-17] MEDS: sennosides-docusate Tablet 2 TAB PO ×2 (09:02→17:31)
[2022-06-17] MEDS: tamsulosin 0.4 mg Capsule PO (09:03)
[2022-06-17] MEDS: mupirocin oint 22 gm 1 APPLIC NASAL ×2 (09:03→17:31)
[2022-06-17] MEDS: insulin lispro 100 unit/1 mL SUBCUT ×3 (09:03→17:32)
[2022-06-17] MEDS: chlorhexidine gluconate 0.12% Btl 473 mL 30 ML MUCOUS MEM ×4 (09:03→21:35)
[2022-06-17] MEDS: insulin glargine 100 units/1 mL 5 UNIT SUBCUT ×2 (09:41→20:05)
[2022-06-17 11:59] LABS: Glucose Point of Care 302 mg/dL (70-110)
[2022-06-17] MEDS: metoprolol tartrate 25 mg Tablet PO (12:14)
--- NOTE | 2022-06-17 14:14 | PC.SOCIAL ---
IMM Update pg 2 of IMM updated and reviewed w/ patient. Copy provided and Copy dated, initialed and placed in chart.
--- NOTE | 2022-06-17 15:53 | P.PN_ITS ---
Subjective Subjective: Patient was seen this morning, he is alert to person, to place, not to time, he has no complaints this morning, no fevers, no cough, blood sugars are better controlled Vitals/I&O/Wt Last Vital Signs Temp 98.3 F 06/17/22 12:00 Pulse 113 H 06/17/22 14:00 Resp 15 06/17/22 12:00 BP 132/63 06/17/22 12:00 Pulse Ox 98 06/17/22 12:00 O2 Del Method Room Air 06/17/22 04:00 O2 Flow Rate 6 06/15/22 14:29 06/17/22 06/17/22 06/17/22 06:59 14:59 22:59 Intake Total 240 / 2040 1290 / 1290 Output Total 100 / 750 Balance 140 / 1290 1290 / 1290 Physical Exam Const: COMMON NORMALS: no acute distress Resp: COMMON NORMALS: normal respiratory effort, No retractions, No use of accessory muscles and clear to auscultation bilaterally AUSCULTATION: clear to auscultation bilaterally Cardio: COMMON NORMALS: regular rate, regular rhythm, S1 normal heart sound present and S2 normal heart sound present RATE: regular rate RHYTHM: regular rhythm HEART SOUNDS: S1 normal heart sound present and S2 normal heart sound present GI: COMMON NORMALS: Normal to inspection, nondistended, normoactive bowel sounds present and non-tender Extremity: COMMON NORMALS: no pedal edema Psych: COMMON NORMALS: mental status grossly normal Urinary Catheter Management: Aggarwal: Cath Placed During This Visit: yes Reason for Continuing Indwelling Catheter: Acute Urinary Retention or Obstruction Urinary Catheter Date of Insertion: 06/16/22 Urinary Catheter Time of Insertion: 17:52 Data 06/17/22 04:58 06/17/22 04:58 Micro: Microbiology 06/14/22 09:15 Urine Culture - Final Urine,Clean Catch Proteus vulgaris A&P Assessment and plan (1) Closed right hip fracture: Patient with closed right hip fracture status post fall, subcapital s/p right hip hemiarthroplasty bipolar pt/ot Pain control (2) Fracture of right inferior pubic ramus: On CT abdomen inferior pubic rami fracture also noted, without significant d isplacement. (3) UTI (urinary tract infection): Patient appears to have significant UTI Urine and blood cultures ordered He has remained afebrile White blood cell count is decreasing Continue Rocephin initiated 1 g IV every 24 hours Keep Aggarwal in currently secondary to hip fracture (4) Acute kidney injury: cr 1.4 This is likely secondary to fall and him being down for the night, rhabdomyolysis Continue Aggarwal Continue hydration Renal function is improved. Recheck tomorrow (5) Hyperkalemia: resolved Likely secondary to acute kidney injury Hold GINA inhibitor This is improved, and normal today (6) Rhabdomyolysis: Patient with rhabdomyolysis likely from fall and being down CK slightly higher as expected Continue fluids at 50 cc an hour. Somewhat cautious secondary to history of coronary disease and CHF with last EF being 45% with moderate mitral regurgitation Hold statin at this time (7) Elevated troponin: Type II elevation. Myocardial infarction not suspected (8) Chronic atrial fibrillation: Patient has chronic atrial fibrillation, now with afib with rvr 1 dose ivp metoprolol increase metoprolol to 25mg BID Add aspirin secondary to his history of heart disease. Not candidate for full anticoagulation with his frequent falls. 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 This could be secondary to his neuropathy, partial foot amputation, vision difficulties or others. Continue to monitor closely in the hospital with fall precautions (11) Atrial fibrillation with RVR: -as above Plan Multiple other medical problems as outlined in past medical history heparin fro dvt prophylaxis Allow natural . Discussed in detail with family and patient See below medical necessity statement Attestations Medical Necessity Statement*: Patient requires hospitalization for UTI, hip fracture, rhabdomyolysis, fall Coding Level of Care Code Acute Code for [facility] Diagnoses Closed right hip fracture S72.001A Fracture of right inferior pubic ramus S32.591A UTI (urinary tract infection) N39.0 Acute kidney injury N17.9 Hyperkalemia E87.5 Rhabdomyolysis M62.82 Elevated troponin R77.8 Chronic atrial fibrillation I48.20 Diabetes mellitus with diabetic polyneuropathy E11.42; Z79.4 Diabetes mellitus type: type 2 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
[2022-06-17 16:34] LABS: Glucose Point of Care 298 mg/dL (70-110)
[2022-06-17] MEDS: sodium chloride 0.9% 1,000 ML 50 ML IV (17:42)
--- NOTE | 2022-06-17 19:30 | PM.PN ---
Subjective Subjective: Patient is resting comfortably in bed. He has no current complaints. He is awaiting placement. Medications: Reviewed: Yes Vitals/I&O/Wt Last Vital Signs Temp 97.7 F 06/17/22 16:00 Pulse 91 06/17/22 16:00 Resp 16 06/17/22 16:00 BP 136/77 06/17/22 16:00 Pulse Ox 99 06/17/22 16:00 O2 Del Method Room Air 06/17/22 04:00 O2 Flow Rate 6 06/15/22 14:29 06/17/22 06/17/22 06/17/22 06:59 14:59 22:59 Intake Total 240 / 2040 1290 / 1290 Output Total 100 / 750 Balance 140 / 1290 1290 / 1290 Physical Exam Narrative: Patient is resting comfortably. According to nursing, his incision looks good. Const: COMMON NORMALS: no acute distress, average body habitus, patient oriented x3 and alert GENERAL APPEARANCE: cooperative and comfortable ORIENTATION/CONSCIOUSNESS: Yes awake HENMT: COMMON NORMALS: normocephalic and atraumatic HEAD & SCALP: normocephalic and atraumatic Eye: COMMON NORMALS: negative for EOMs intact bilaterally GENERAL EYE: no appearance normal, both eyes and all related structures OTHER: Patient has a left eye cloudiness consistent with cataract, and he is blind in his right eye as well. Chest: COMMONS NORMALS: normal inspection of the chest Resp: COMMON NORMALS: normal respiratory effort EFFORT & INSPECTION: Yes able to speak in complete sentences and Yes symmetric chest movement Neuro: COMMON NORMALS: patient oriented x3 SENSORIUM/ORIENTATION: Yes alert Psych: COMMON NORMALS: mental status grossly normal APPEARANCE: Yes grossly normal ATTITUDE: Yes calm and Yes engaged ATTENTION/CONCENTRATION: Yes attention grossly intact Skin: COMMON NORMALS: no rashes or lesions noted GENERAL SKIN EXAM: no rashes or lesions noted Urinary Catheter Management: Aggarwal: Cath Placed During This Visit: yes Reason for Continuing Indwelling Catheter: Acute Urinary Retention or Obstruction Urinary Catheter Date of Insertion: 06/16/22 Urinary Catheter Time of Insertion: 17:52 Data 06/17/22 04:58 06/17/22 04:58 A&P Assessment and plan (1) Subcapital fracture of right hip: Patient is status post bipolar hip arthroplasty. He is on posterior hip precautions and weightbearing as tolerated. He is working with physical therapy, and he has been up to a chair. We are awaiting placement for him so that he may optimize his postoperative rehabilitation. Qualifiers: Encounter type: initial encounter Fracture type: closed Qualified Code(s): S72.011A - Unspecified intracapsular fracture of right femur, initial encounter for closed fracture Attestations Medical Necessity Statement*: Ongoing care following bipolar hip arthroplasty for fracture. Coding Level of Care Code Acute Code for [facility] Diagnoses Subcapital fracture of right hip S72.011A Encounter type: initial encounter Fracture type: closed
[2022-06-17 20:04] LABS: Glucose Point of Care 241 mg/dL (70-110)
[2022-06-18] VITALS (8 sets, daily range): BP systolic 135–156; BP diastolic 65–84; PULSE 68–95; RESP 16–21; TEMP 36.7–37.3; O2SAT 93–99
[2022-06-18] MEDS: metoprolol tartrate 25 mg Tablet PO (00:14)
[2022-06-18] MEDS: acetaminophen 500 mg Tablet 1000 MG PO ×3 (03:02→20:08)
[2022-06-18] MEDS: heparin 5,000 unit/mL INJ 1 mL 5000 UNIT SUBCUT ×2 (03:02→14:40)
[2022-06-18 05:23] LABS: Basophils % 0.3 %; Eosinophils # 0.3 10^3/uL (0.0-0.8); Eosinophils % 1.9 %; Hematocrit 28.1 % (42.0-52.0); Hemoglobin 8.9 g/dL (11.7-16.6); Lymphocytes # 2.2 10^3/uL (0.8-4.8); Lymphocytes % 16.4 %; Mean Corpuscular HGB Conc 31.7 g/dL (30.0-36.0); Mean Corpuscular Hemoglobin 30.9 pg (28.0-34.0); Mean Corpuscular Volume 97.6 fl (80-94); Monocytes # 0.9 10^3/uL (0.2-0.9); Monocytes % 6.4 %; Neutrophils % 74.1 %; Nucleated Red Blood Cells % 0 %; Platelet Count 256 10^3/cmm (130-400); Red Blood Count 2.88 10^6/uL (4.1-5.3); Red Cell Distribution Width 13.7 % (12.1-15.1); White Blood Count 13.5 10^3/uL (4.0-10.0)
[2022-06-18 05:37] LABS: Anion Gap 14.8 (5-19); Blood Urea Nitrogen 26 mg/dL (8-23); Calcium 8.2 mg/dL (8.5-10.5); Carbon Dioxide 18 mmol/L (22-29); Chloride 110 mmol/L (98-107); Glucose 248 mg/dL (65-115); Osmolality Calculated 301 mOsm/kg (285-295); Potassium 3.8 mmol/L (3.5-5.1); Sodium 139 mmol/L (136-145)
[2022-06-18 05:40] LABS: Creatine Phosphokinase 322 U/L (39-308)
[2022-06-18 06:14] LABS: Glucose Point of Care 245 mg/dL (70-110)
[2022-06-18] MEDS: insulin lispro 100 unit/1 mL SUBCUT ×4 (09:59→21:55)
[2022-06-18] MEDS: calcium carbonate 500 mg Chew Tablet 1000 MG PO ×2 (09:59→17:26)
[2022-06-18] MEDS: amlodipine 10 mg Tablet PO (10:00)
[2022-06-18] MEDS: cholecalciferol (vitamin D3) 1,000 unit Tablet 1000 UNIT PO (10:00)
[2022-06-18] MEDS: insulin glargine 100 units/1 mL 5 UNIT SUBCUT (10:00)
[2022-06-18] MEDS: aspirin 81 mg EC Tablet PO (10:00)
[2022-06-18] MEDS: iron polysaccharide complex 150 mg Capsule PO ×2 (10:00→17:26)
[2022-06-18] MEDS: sennosides-docusate Tablet 2 TAB PO ×2 (10:00→17:26)
[2022-06-18] MEDS: tamsulosin 0.4 mg Capsule PO (10:00)
[2022-06-18] MEDS: cefTRIAXone 1,000 MG in sodium chloride 0.9% (plus) 50 ML 100 MG IV (10:01)
[2022-06-18] MEDS: multivitamin therapeutic Tablet 1 TAB PO (10:01)
[2022-06-18] MEDS: chlorhexidine gluconate 0.12% Btl 473 mL 30 ML MUCOUS MEM ×4 (10:04→21:56)
[2022-06-18] MEDS: mupirocin oint 22 gm 1 APPLIC NASAL ×2 (10:04→17:35)
[2022-06-18 11:44] LABS: Glucose Point of Care 254 mg/dL (70-110)
[2022-06-18 12:01] LABS: Iron 19 ug/dL (59-158); Total Iron Binding Capacity 86 mcg/dl; Unsaturated Iron Binding 67 ug/dL (112-347)
[2022-06-18 12:11] LABS: Thyroid Stimulating Hormone 2.27 uIU/mL (0.27-4.20)
[2022-06-18 12:19] LABS: Folate Level 17.3 ng/mL (4.5-32.2)
--- NOTE | 2022-06-18 13:40 | PM.PN ---
Subjective Subjective: Hospital course, labs appreciated. On examination patient lying comfortably in bed. Sleeping. Wakes up to verbal stimulus. Able to have complete conversation. Alert and oriented to self, place, reason to being in the hospital, year. States he is in some pain. Agreeable to go to SNF. Vitals/I&O/Wt Last Vital Signs Temp 98.0 F 06/18/22 11:56 Pulse 95 06/18/22 11:56 Resp 16 06/18/22 11:56 BP 150/81 06/18/22 11:56 Pulse Ox 98 06/18/22 11:56 O2 Del Method Room Air 06/18/22 11:56 O2 Flow Rate 6 06/17/22 20:00 06/17/22 06/18/22 06/18/22 22:59 06:59 14:59 Intake Total 200 / 1490 240 / 1730 290 / 290 Output Total 1000 / 1000 Balance 200 / 1490 -760 / 730 290 / 290 Physical Exam Narrative: General exam no distress, conversant and pleasant Neck is supple no lymphadenopathy thyromegaly Cardiovascular irregular, irregular with a 2/6 systolic murmur Lungs clear but with diminished breath sounds at the bases Abdomen is soft nontender positive bowel sounds. No obvious organomegaly Extremities no cyanosis clubbing or edema, cap refill brisk. 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 Skin no rash. Abrasions on both elbows Neuro no obvious focal deficits Urinary Catheter Management: Aggarwal: Cath Placed During This Visit: yes Reason for Continuing Indwelling Catheter: Acute Urinary Retention or Obstruction Urinary Catheter Date of Insertion: 06/16/22 Urinary Catheter Time of Insertion: 17:52 Data 06/18/22 05:00 06/18/22 05:00 A&P Assessment and plan (1) Closed right hip fracture: Patient with closed right hip fracture status post fall, subcapital s/p right hip hemiarthroplasty bipolar day 3. PT/OT. Pain control. Decreased to oxycodone 5 mg every 8 hourly. Add tramadol 50 mg q. 4 hourly. (2) Fracture of right inferior pubic ramus: On CT abdomen inferior pubic rami fracture also noted, without significant displacement. (3) UTI (urinary tract infection): Patient appears to have significant UTI. Urine culture growing Proteus which is resistant to ceftriaxone. Sensitive to ciprofloxacin/Levaquin/cefepime. For now while patient is in hospital we will switch to IV cefepime as per creatinine clearance. (4) Acute kidney injury: This is likely secondary to fall and him being down for the night, rhabdomyolysis Resolved. Creatinine down to 1.2. Continue with IV hydration. Monitor BMP daily. Medical reconciliation done for nephrotoxic drugs. Continue to hold off on lisinopril. Remove Aggarwal. (5) Hyperkalemia: Resolved. Likely secondary to acute kidney injury Hold GINA inhibitor This is improved, and normal today (6) Rhabdomyolysis: Patient with rhabdomyolysis likely from fall and being down Resolved. Continue fluids at 50 cc an hour. Somewhat cautious secondary to history of coronary disease and CHF with last EF being 45% with moderate mitral regurgitation Hold statin at this time (7) Elevated troponin: Type II elevation. Myocardial infarction not suspected (8) Chronic atrial fibrillation: Patient has chronic atrial fibrillation, now with afib with rvr Increase metoprolol 50 mg twice daily Add aspirin secondary to his history of heart disease. Not candidate for full anticoagulation with his frequent falls. (9) Diabetes mellitus with diabetic polyneuropathy: Sliding scale insulin before meals and at bedtime at moderate dose protocol. Increase Lantus to 10 units twice daily. 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 This could be secondary to his neuropathy, partial foot amputation, vision difficulties or others. Continue to monitor closely in the hospital with fall precautions (11) Atrial fibrillation with RVR: -as above Plan Multiple other medical problems as outlined in past medical history Heparin for DVT prophylaxis. Patient on dysphagia level 5 diet. Speech evaluation and advance diet accordingly. Famotidine for PUD prophylaxis. DNR/DNI. Discharge planning: Given advanced age, hip fracture patient would benefit from discharge to SNF for further rehabilitation for a short while before can be transition to home. Patient agreeable. Case management working on placement. Attestations Medical Necessity Statement*: Requires further hospitalization UTI secondary to Proteus, post ORIF for hip fracture while safe discharge planning is sought as patient is at a high risk of recurrent falls, deconditioning. Diagnoses Closed right hip fracture S72.001A Fracture of right inferior pubic ramus S32.591A UTI (urinary tract infection) N39.0 Acute kidney injury N17.9 Hyperkalemia E87.5 Rhabdomyolysis M62.82 Elevated troponin R77.8 Chronic atrial fibrillation I48.20 Diabetes mellitus with diabetic polyneuropathy E11.42; Z79.4 Diabetes mellitus type: type 2 Diabetes mellitus intermediate insulin use: with lead trainer use Fall W19.XXXA Atrial fibrillation with RVR I48.91
[2022-06-18] MEDS: cefepime 1,000 MG in sodium chloride 0.9% (plus) 50 ML 100 MG IV (14:40)
--- NOTE | 2022-06-18 17:07 | PM.PN ---
Subjective Subjective: Patient was sitting in his room up in a chair. Medications: Reviewed: Yes Vitals/I&O/Wt Last Vital Signs Temp 98.0 F 06/18/22 11:56 Pulse 75 06/18/22 16:00 Resp 18 06/18/22 16:00 BP 135/83 06/18/22 16:00 Pulse Ox 99 06/18/22 16:00 O2 Del Method Room Air 06/18/22 16:00 O2 Flow Rate 6 06/17/22 20:00 06/18/22 06/18/22 06/18/22 06:59 14:59 22:59 Intake Total 240 / 1730 530 / 530 50 / 580 Output Total 1000 / 1000 Balance -760 / 730 530 / 530 50 / 580 Physical Exam Narrative: Patient is resting comfortably. According to nursing, his incision looks good. Const: COMMON NORMALS: no acute distress, average body habitus, patient oriented x3 and alert GENERAL APPEARANCE: cooperative and comfortable ORIENTATION/CONSCIOUSNESS: Yes awake HENMT: COMMON NORMALS: normocephalic and atraumatic HEAD & SCALP: normocephalic and atraumatic Eye: COMMON NORMALS: negative for EOMs intact bilaterally GENERAL EYE: no appearance normal, both eyes and all related structures OTHER: Patient has a left eye cloudiness consistent with cataract, and he is blind in his right eye as well. Chest: COMMONS NORMALS: normal inspection of the chest Resp: COMMON NORMALS: normal respiratory effort EFFORT & INSPECTION: Yes able to speak in complete sentences and Yes symmetric chest movement Extremity: NARRATIVE EXTREMITY EXAM: Calf is soft and nontender. Dressing is dry and intact. Minimal to no swelling. Neuro: COMMON NORMALS: patient oriented x3 SENSORIUM/ORIENTATION: Yes alert Psych: COMMON NORMALS: mental status grossly normal APPEARANCE: Yes grossly normal ATTITUDE: Yes calm and Yes engaged ATTENTION/CONCENTRATION: Yes attention grossly intact Skin: COMMON NORMALS: no rashes or lesions noted GENERAL SKIN EXAM: no rashes or lesions noted Urinary Catheter Management: Aggarwal: Cath Placed During This Visit: yes Reason for Continuing Indwelling Catheter: Acute Urinary Retention or Obstruction Urinary Catheter Date of Insertion: 06/16/22 Urinary Catheter Time of Insertion: 17:52 Data 06/18/22 05:00 06/18/22 05:00 A&P Assessment and plan (1) Subcapital fracture of right hip: Patient is status post bipolar hip arthroplasty. He is on posterior hip precautions and weightbearing as tolerated. He is working with physical therapy, and he has been up to a chair. We are awaiting placement for him so that he may optimize his postoperative rehabilitation. The patient is in agreement with assisted. Attestations Medical Necessity Statement*: Ongoing care following bipolar hip arthroplasty for subcapital hip fracture Coding Level of Care Code Acute Code for [facility] Diagnoses Subcapital fracture of right hip S72.011A
[2022-06-18] MEDS: famotidine 20 mg Tablet PO (17:26)
[2022-06-18] MEDS: sodium chloride 0.9% 1,000 ML 50 ML IV (18:33)
[2022-06-18] MEDS: metoprolol tartrate 50 mg Tablet PO (21:05)
--- NOTE | 2022-06-18 21:49 | PC.NURSE ---
blood sugar tonight 257
[2022-06-18] MEDS: insulin glargine 100 units/1 mL 10 UNIT SUBCUT (21:56)
[2022-06-19] VITALS (8 sets, daily range): BP systolic 96–172; BP diastolic 52–79; PULSE 68–93; RESP 16–19; TEMP 31.4–36.8; O2SAT 92–100
[2022-06-19] MEDS: cefepime 1,000 MG in sodium chloride 0.9% (plus) 50 ML 100 MG IV ×2 (01:15→15:20)
[2022-06-19] MEDS: heparin 5,000 unit/mL INJ 1 mL 5000 UNIT SUBCUT ×2 (02:03→15:20)
[2022-06-19 04:04] LABS: Basophils % 0.2 %; Eosinophils # 0.4 10^3/uL (0.0-0.8); Eosinophils % 3.7 %; Hematocrit 29.6 % (42.0-52.0); Hemoglobin 9.1 g/dL (11.7-16.6); Lymphocytes # 2.6 10^3/uL (0.8-4.8); Lymphocytes % 22.5 %; Mean Corpuscular HGB Conc 30.7 g/dL (30.0-36.0); Mean Corpuscular Hemoglobin 30.1 pg (28.0-34.0); Mean Platelet Volume 9.9 fL (7.4-10.4); Monocytes # 0.8 10^3/uL (0.2-0.9); Monocytes % 6.7 %; Neutrophils # 7.64 10^3/uL (1.8-7.7); Neutrophils % 65.7 %; Nucleated Red Blood Cells % 0 %; Platelet Count 280 10^3/cmm (130-400); Red Blood Count 3.02 10^6/uL (4.1-5.3); Red Cell Distribution Width 13.7 % (12.1-15.1); White Blood Count 11.6 10^3/uL (4.0-10.0)
[2022-06-19 04:31] LABS: Alanine Aminotransferase 12 U/L (0-41); Albumin Level 2.4 g/dL (3.5-5.2); Alkaline Phosphatase 125 U/L (40-130); Aspartate Amino Transferase 36 U/L (0-40); Blood Urea Nitrogen 23 mg/dL (8-23); Carbon Dioxide 19 mmol/L (22-29); Chloride 109 mmol/L (98-107); Chol HDL Ratio 2.86 mg/dL (1.0-5.00); Cholesterol 80 mg/dL (0-200); Globulin 3.2 g/dL (1.3-4.6); Glucose 133 mg/dL (65-115); HDL Cholesterol 28 mg/dL (60-100); LDL Cholesterol Calculated 35 mg/dL (50-129); Osmolality Calculated 294 mOsm/kg (285-295); Sodium 139 mmol/L (136-145); Total Bilirubin 0.6 mg/dL (0.15-1.2); Total Protein 5.6 g/dL (6.6-8.7); Triglycerides 87 mg/dL (0-150); VLDL Cholestrol Calculation 17 mg/dL (0-30)
[2022-06-19] MEDS: acetaminophen 500 mg Tablet 1000 MG PO ×3 (04:34→20:56)
[2022-06-19] MEDS: calcium carbonate 500 mg Chew Tablet 1000 MG PO ×2 (10:07→17:42)
[2022-06-19] MEDS: cholecalciferol (vitamin D3) 1,000 unit Tablet 1000 UNIT PO (10:08)
[2022-06-19] MEDS: multivitamin therapeutic Tablet 1 TAB PO (10:08)
[2022-06-19] MEDS: tamsulosin 0.4 mg Capsule PO ×2 (10:08→17:42)
[2022-06-19] MEDS: aspirin 81 mg EC Tablet PO (10:08)
[2022-06-19] MEDS: atorvastatin 40 mg Tablet 20 MG PO (10:08)
[2022-06-19] MEDS: famotidine 20 mg Tablet PO ×2 (10:08→17:42)
[2022-06-19] MEDS: sennosides-docusate Tablet 2 TAB PO ×2 (10:08→17:42)
[2022-06-19] MEDS: chlorhexidine gluconate 0.12% Btl 473 mL 30 ML MUCOUS MEM ×3 (10:09→21:01)
[2022-06-19] MEDS: amlodipine 10 mg Tablet PO (10:09)
[2022-06-19] MEDS: iron polysaccharide complex 150 mg Capsule PO ×2 (10:09→17:42)
--- NOTE | 2022-06-19 11:44 | PC.SOCIAL ---
IMM Update pg 2 of IMM updated and reviewed w/ patients son Eben. Copy left @ bedside and copy in chart dated and initialed.
[2022-06-19] MEDS: insulin glargine 100 units/1 mL 10 UNIT SUBCUT ×2 (12:26→20:58)
[2022-06-19] MEDS: metoprolol tartrate 50 mg Tablet PO ×2 (12:26→21:14)
[2022-06-19] MEDS: insulin lispro 100 unit/1 mL SUBCUT ×3 (12:27→21:14)
--- NOTE | 2022-06-19 15:05 | PM.PN ---
Subjective Subjective: No acute events overnight. Has remained hemodynamically stable and afebrile. Denies any nausea, tach, headache. At baseline mentation. Complaining of back pain. States he thinks back pain is because of sleeping in hospital bed. Aggarwal was removed yesterday but had to be replaced because he retained urine up to 600 cc. Medications: Reviewed: Yes Vitals/I&O/Wt Last Vital Signs Temp 97.9 F 06/19/22 12:00 Pulse 73 06/19/22 12:00 Resp 18 06/19/22 12:00 BP 172/62 06/19/22 12:00 Pulse Ox 100 06/19/22 12:00 O2 Del Method Room Air 06/19/22 12:00 O2 Flow Rate 6 06/17/22 20:00 06/19/22 06/19/22 06/19/22 06:59 14:59 22:59 Intake Total 50 / 1870 880 / 880 Output Total 500 / 500 Balance -450 / 1370 880 / 880 Physical Exam Narrative: General exam no distress, conversant and pleasant Neck is supple no lymphadenopathy thyromegaly Cardiovascular irregular, irregular with a 2/6 systolic murmur Lungs clear but with diminished breath sounds at the bases Abdomen is soft nontender positive bowel sounds. No obvious organomegaly Extremities no cyanosis clubbing or edema, cap refill brisk. 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 Skin no rash. Abrasions on both elbows Neuro no obvious focal deficits Urinary Catheter Management: Aggarwal: Cath Placed During This Visit: yes, but has since been removed by the nurse Reason for Continuing Indwelling Catheter: Acute Urinary Retention or Obstruction Urinary Catheter Date of Insertion: 06/19/22 Urinary Catheter Time of Insertion: 01:05 Date Urinary Catheter Removed: 06/18/22 Time Urinary Catheter Discontinued: 16:00 Data 06/19/22 03:42 06/19/22 03:42 Micro: Microbiology 06/14/22 11:32 Blood Culture - Final Blood NO GROWTH AFTER 5 DAYS 06/14/22 11:25 Blood Culture - Final Blood NO GROWTH AFTER 5 DAYS A&P Assessment and plan (1) Closed right hip fracture: Patient with closed right hip fracture status post fall, subcapital s/p right hip hemiarthroplasty bipolar day 4. PT/OT. Pain control. Continue with oxycodone 5 mg every 8 hourly, tramadol 50 mg q. 4 hourly. (2) Fracture of right inferior pubic ramus: On CT abdomen inferior pubic rami fracture also noted, without significant displacement. (3) UTI (urinary tract infection): Patient appears to have significant UTI. Urine culture growing Proteus which is resistant to ceftriaxone. Sensitive to ciprofloxacin/Levaquin/cefepime. Continue with cefepime as per creatinine clearance. Day 2 of effective treatment. (4) Acute kidney injury: This is likely secondary to fall and him being down for the night, rhabdomyolysis Resolved. Stop IV fluids. Monitor BMP daily. Medical reconciliation done for nephrotoxic drugs. Continue to hold off on lisinopril. (5) Hyperkalemia: Resolved. Likely secondary to acute kidney injury Hold GINA inhibitor This is improved, and normal today (6) Rhabdomyolysis: Patient with rhabdomyolysis likely from fall and being down Resolved. Continue fluids at 50 cc an hour. Somewhat cautious secondary to history of coronary disease and CHF with last EF being 45% with moderate mitral regurgitation Hold statin at this time (7) Elevated troponin: Type II elevation. Myocardial infarction not suspected (8) Chronic atrial fibrillation: Patient has chronic atrial fibrillation, now with afib with rvr Continue with metoprolol 50 mg twice daily Add aspirin secondary to his history of heart disease. Not candidate for full anticoagulation with his frequent falls. (9) Diabetes mellitus with diabetic polyneuropathy: A1c 8.9. Sliding scale insulin before meals and at bedtime at moderate dose protocol. Continue with Lantus to 10 units twice daily. Qualifiers: Diabetes mellitus type: type 2 Diabetes mellitus fdc insulin use: with fdc use Qualified Code(s): E11.42 - Type 2 diabetes mellitus with diabetic polyneuropathy; Z79.4 - FPC (current) use of insulin (10) Fall: Patient with history of frequent falls Physical therapy evaluation following surgery Likely falls are from a multitude of causes. This could be secondary to his neuropathy, partial foot amputation, vision difficulties or others. Continue to monitor closely in the hospital with fall precautions (11) Atrial fibrillation with RVR: -as above Plan Urinary retention: Failed voiding trial. Aggarwal replaced. Increase Flomax to 0.4 twice daily. We will plan to discharge with referral to urology for voiding trial as an outpatient. Multiple other medical problems as outlined in past medical history Heparin for DVT prophylaxis. Patient on dysphagia level 5 diet. Speech evaluation and advance diet accordingly. Famotidine for PUD prophylaxis. DNR/DNI. Discharge planning: Given advanced age, hip fracture patient would benefit from discharge to SNF for further rehabilitation for a short while before can be transition to home. Patient agreeable. Case management working on placement. 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
[2022-06-19] MEDS: mupirocin oint 22 gm 1 APPLIC NASAL (17:43)
--- NOTE | 2022-06-19 19:53 | P.PN_ITS ---
Subjective Subjective: Patient is seen in his bed. He is somewhat confused today. Medications: Reviewed: Yes Vitals/I&O/Wt Last Vital Signs Temp 98.2 F 06/19/22 16:00 Pulse 93 06/19/22 16:00 Resp 18 06/19/22 16:00 BP 148/73 06/19/22 16:00 Pulse Ox 97 06/19/22 16:00 O2 Del Method Room Air 06/19/22 12:00 O2 Flow Rate 6 06/17/22 20:00 06/19/22 06/19/22 06/19/22 06:59 14:59 22:59 Intake Total 50 / 1870 880 / 880 360 / 1240 Output Total 500 / 500 Balance -450 / 1370 880 / 880 360 / 1240 Physical Exam Narrative: Patient is resting comfortably. According to nursing, his incision looks good. Const: COMMON NORMALS: no acute distress, average body habitus and alert GENERAL APPEARANCE: cooperative and comfortable ORIENTATION/CONSCIOUSNESS: Yes awake HENMT: COMMON NORMALS: normocephalic and atraumatic HEAD & SCALP: normocephalic and atraumatic Eye: COMMON NORMALS: negative for EOMs intact bilaterally GENERAL EYE: no appearance normal, both eyes and all related structures OTHER: Patient has a left eye cloudiness consistent with cataract, and he is blind in his right eye as well. Chest: COMMONS NORMALS: normal inspection of the chest Resp: COMMON NORMALS: normal respiratory effort EFFORT & INSPECTION: Yes able to speak in complete sentences and Yes symmetric chest movement Extremity: NARRATIVE EXTREMITY EXAM: Calf is soft and nontender. Dressing is dry and intact. Minimal to no swelling. Neuro: SENSORIUM/ORIENTATION: Yes alert Psych: ATTITUDE: Yes calm and Yes engaged ATTENTION/CONCENTRATION: Yes attention grossly intact Skin: COMMON NORMALS: no rashes or lesions noted GENERAL SKIN EXAM: no rashes or lesions noted Urinary Catheter Management: Aggarwal: Cath Placed During This Visit: yes, but has since been removed by the nurse Reason for Continuing Indwelling Catheter: Acute Urinary Retention or Obstruction Urinary Catheter Date of Insertion: 06/19/22 Urinary Catheter Time of Insertion: 01:05 Date Urinary Catheter Removed: 06/18/22 Time Urinary Catheter Discontinued: 16:00 Data 06/19/22 03:42 06/19/22 03:42 Micro: Microbiology 06/14/22 11:32 Blood Culture - Final Blood NO GROWTH AFTER 5 DAYS 06/14/22 11:25 Blood Culture - Final Blood NO GROWTH AFTER 5 DAYS A&P Assessment and plan (1) Subcapital fracture of right hip: Patient is status post bipolar hip arthroplasty. He is on posterior hip precautions and weightbearing as tolerated. He is working with physical therapy, and he has been up to a chair. We are awaiting placement for him so that he may optimize his postoperative rehabilitation. The patient is in agreement with longterm. Attestations Medical Necessity Statement*: Awaiting placement Coding Level of Care Code Acute Code for [facility] Fwd Diagnoses Subcapital fracture of right hip S72.011A
[2022-06-20] VITALS: BP 123/58; PULSE 70; RESP 16; TEMP 36.5; O2SAT 91
[2022-06-20] MEDS: heparin 5,000 unit/mL INJ 1 mL 5000 UNIT SUBCUT (02:19)
[2022-06-20] MEDS: cefepime 1,000 MG in sodium chloride 0.9% (plus) 50 ML 100 MG IV (02:19)
[2022-06-20 03:55] VITALS: BP 119/61; PULSE 72; RESP 18; TEMP 36.7; O2SAT 95
[2022-06-20] MEDS: acetaminophen 500 mg Tablet 1000 MG PO ×2 (05:43→13:23)
[2022-06-20] MEDS: TRAMadol 50 mg Tablet PO (05:46)
[2022-06-20 06:00] VITALS: PULSE 92
[2022-06-20 07:05] LABS: Glucose Point of Care 320 mg/dL (70-110)
[2022-06-20 07:06] LABS: Glucose Point of Care 321 mg/dL (70-110)
[2022-06-20 07:06] LABS: Glucose Point of Care 152 mg/dL (70-110)
[2022-06-20 07:06] LABS: Glucose Point of Care 218 mg/dL (70-110)
[2022-06-20 07:06] LABS: Glucose Point of Care 258 mg/dL (70-110)
[2022-06-20 07:06] LABS: Glucose Point of Care 257 mg/dL (70-110)
[2022-06-20 07:06] LABS: Glucose Point of Care 242 mg/dL (70-110)
[2022-06-20 07:46] VITALS: BP 131/69; PULSE 91; RESP 18; TEMP 36.7; O2SAT 92
[2022-06-20] MEDS: mupirocin oint 22 gm 1 APPLIC NASAL (10:22)
[2022-06-20] MEDS: iron polysaccharide complex 150 mg Capsule PO (10:23)
[2022-06-20] MEDS: insulin lispro 100 unit/1 mL SUBCUT ×2 (10:23→13:23)
[2022-06-20] MEDS: sennosides-docusate Tablet 2 TAB PO (10:23)
[2022-06-20] MEDS: aspirin 81 mg EC Tablet PO (10:23)
[2022-06-20] MEDS: famotidine 20 mg Tablet PO (10:24)
[2022-06-20] MEDS: atorvastatin 40 mg Tablet 20 MG PO (10:24)
[2022-06-20] MEDS: amlodipine 10 mg Tablet PO (10:24)
[2022-06-20] MEDS: metoprolol tartrate 50 mg Tablet PO (10:24)
[2022-06-20] MEDS: tamsulosin 0.4 mg Capsule PO (10:24)
[2022-06-20] MEDS: cholecalciferol (vitamin D3) 1,000 unit Tablet 1000 UNIT PO (10:24)
[2022-06-20] MEDS: calcium carbonate 500 mg Chew Tablet 1000 MG PO (10:24)
[2022-06-20] MEDS: multivitamin therapeutic Tablet 1 TAB PO (10:24)
[2022-06-20] MEDS: chlorhexidine gluconate 0.12% Btl 473 mL 30 ML MUCOUS MEM (10:31)
[2022-06-20] MEDS: insulin glargine 100 units/1 mL 10 UNIT SUBCUT (10:35)
[2022-06-20 12:00] VITALS: BP 143/64; PULSE 71; RESP 16; TEMP 36.4; O2SAT 99
[2022-06-20 12:18] LABS: Glucose Point of Care 271 mg/dL (70-110)
--- NOTE | 2022-06-20 13:11 | PM.DCS ---
Discharge Providers Date of Admission: 06/14/22 13:00 Date of Discharge: June 20, 2022 Attending Provider at Admission: Ben Culver MD Attending Provider at Discharge: Srinivasan Mcgill MD Consults: Orthopedics: Dr. Evans Primary Care Provider: Carlos Nagy MD Diagnoses at Discharge Discharge Diagnosis (1) Subcapital fracture of right hip: Status: Acute Reason for Visit Reason for Visit: Fall Brief History: Frank Espinal is a 86 year old male presenting to the emergency department after a fall.? Patient had a fall last night, exact details are not known.? He apparently has had frequent falls in the past, with last one being Saturday.? Family relates that he falls perhaps once every 2 weeks.? He has chronic atrial fibrillation and secondary to his history of frequent falls he is not a candidate for anticoagulation.? There is not any history of fever.? 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 After the fall last night, he could not get up and was found by his son this morning.? Patient reports he has some pain currently, and is alert and able to answer some questions.? However, he has some confusion likely related to the Dilaudid he just received.? Family relates his falls are secondary to neuropathy, partial foot amputation, significant visual impairments among other things.? Patient denies any chest discomfort, difficulty with anesthesia.? Long discussion occurred regarding medical decision making and CODE STATUS.? Family and patient agree that patient wants surgical intervention, and aggressive treatment but would not want to be on the ventilator or receive CPR.? Allow natural order was entered. Emergency department he received multiple imaging tests, IV fluids, morphine and then Dilaudid.? I ordered some Rocephin, continued IV fluids, a blood culture. Hospital Course Hospital Course Patient was brought to the hospital further evaluation and management of closed right hip fracture. Orthopedics was consulted and he underwent right hip hemiarthroplasty on 06/15. Patient tolerated the procedure well and has been working with physical therapy. His hospital stay was complicated by him developing a UTI for which urine cultures came back positive for Proteus vulgaris sensitive to cefepime and levofloxacin. Patient also failed voiding trial and was found to have urinary retention for which Aggarwal catheter has been replaced. He was also found to be having episodes of aspiration regular diet follow-up with speech therapy was consulted and he has been doing well on dysphagia level 6 diet. Safe discharge plan were discussed in detail with patient and patient's family at bedside and they requested him to be transferred to SNF for further rehabitation. He has been discharged in hemodynamically stable condition on oral Levaquin for 5 more days to finish a course of antibiotics for UTI for continued rehabitation. He is recommended to continue on dysphagia level 6 diet going forward to prevent aspirations. Physical Exam Narrative: General exam no distress, conversant and pleasant Neck is supple no lymphadenopathy thyromegaly Cardiovascular irregular, irregular with a 2/6 systolic murmur Lungs clear but with diminished breath sounds at the bases Abdomen is soft nontender positive bowel sounds. No obvious organomegaly Extremities no cyanosis clubbing or edema, cap refill brisk. 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 Skin no rash. Abrasions on both elbows Neuro no obvious focal deficits Urinary Catheter Management: Aggarwal: Cath Placed During This Visit: yes, but has since been removed by the nurse Reason for Continuing Indwelling Catheter: Acute Urinary Retention or Obstruction Urinary Catheter Date of Insertion: 06/19/22 Urinary Catheter Time of Insertion: 01:05 Date Urinary Catheter Removed: 06/18/22 Time Urinary Catheter Discontinued: 16:00 Discharge Data Studies Completed and Pending Completed Studies During Hospitalization Category Date Time Status CT cervical spin wo con* [id number] Urgent Cat Scan 06/14/22 08:[address] head wo con* [id number] Urgent Cat Scan 06/14/22 08:[address] kidney stone [id number] Stat Cat Scan 06/14/22 10:19 Completed XR chest 1V portable [id number] Urgent Exams 06/14/22 08:33 Completed XR hip RT 2-3V wo/w pel* [id number] Stat Exams 06/14/22 08:33 Completed XR knee RT 3V* [id number] Stat Exams 06/14/22 08:33 Completed XR pelvis 1-2V* [id number] Routine Exams 06/15/22 14:36 Completed Radiology Impressions Cervical Spine CT 06/14/22 08:33 IMPRESSION: No evidence of acute fracture or dislocation. Chest X-Ray 06/14/22 08:33 IMPRESSION: No acute cardiopulmonary abnormality identified. Head CT 06/14/22 08:33 IMPRESSION: 1. No evidence of intracranial hemorrhage or mass effect. 2. Moderate small vessel changes moderate parenchymal volume loss. 3. 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 4. Vascular calcification. 5. No acute intracranial findings. Hip/Pelvis X-Ray 06/14/22 08:33 IMPRESSION: Subcapital femoral neck fracture. Knee X-Ray 06/14/22 08:33 IMPRESSION: 1. No evidence of acute fracture or dislocation. 2. Prominent osteoarthritic changes. Abdomen/Pelvis CT 06/14/22 10:19 IMPRESSION: 1. Again seen is the acute RIGHT subcapital hip fracture with impaction and varus rotation. 2. Slightly comminuted fracture involving the inferior RIGHT dorsal Pubic ramus. 3. Associated gluteal soft tissue edema. 4. Aggarwal catheter with markedly enlarged prostate. Recommend correlation PSA. 5. No hydronephrosis in either kidney. Pelvis X-Ray 06/15/22 14:36 IMPRESSION: 1. No acute findings. 2. Metallic right hip arthroplasty in good position Laboratory Results WBC 11.6 10^3/uL (4.0-10.0) H 06/19/22 03:42 RBC 3.02 10^6/uL (4.1-5.3) L 06/19/22 03:42 Hgb 9.1 g/dL (11.7-16.6) L 06/19/22 03:42 Hct 29.6 % (42.0-52.0) L 06/19/22 03:42 MCV 98.0 fl (80-94) H 06/19/22 03:42 MCH 30.1 pg (28.0-34.0) 06/19/22 03:42 MCHC 30.7 g/dL (30.0-36.0) 06/19/22 03:42 RDW 13.7 % (12.1-15.1) 06/19/22 03:42 Plt Count 280 10^3/cmm (130-400) 06/19/22 03:42 MPV 9.9 fL (7.4-10.4) 06/19/22 03:42 Neut % (Auto) 65.7 % 06/19/22 03:42 Lymph % (Auto) 22.5 % 06/19/22 03:42 [place] % (Auto) 6.7 % 06/19/22 03:42 Eos % (Auto) 3.7 % 06/19/22 03:42 Baso % (Auto) 0.2 % 06/19/22 03:42 Neut # (Auto) 7.64 10^3/uL (1.8-7.7) 06/19/22 03:42 Lymph # (Auto) 2.6 10^3/uL (0.8-4.8) 06/19/22 03:42 [place] # (Auto) 0.8 10^3/uL (0.2-0.9) 06/19/22 03:42 Eos # (Auto) 0.4 10^3/uL (0.0-0.8) 06/19/22 03:42 Baso # (Auto) 0.0 10^3/uL (0.0-0.1) 06/19/22 03:42 Nucleated RBC % (auto) 0 % 06/19/22 03:42 Nucleated RBCs # 0.0 /100WBC 06/19/22 03:42 Sodium 139 mmol/L (136-145) 06/19/22 03:42 Potassium 4.0 mmol/L (3.5-5.1) 06/19/22 03:42 Chloride 109 mmol/L (98-107) H 06/19/22 03:42 Carbon Dioxide 19 mmol/L (22-29) L 06/19/22 03:42 Anion Gap 15.0 (5-19) 06/19/22 03:42 BUN 23 mg/dL (8-23) 06/19/22 03:42 Creatinine 1.0 mg/dL (0.7-1.2) 06/19/22 03:42 GFR Calculation Not Reportable 06/19/22 03:42 Glucose 133 mg/dL (65-115) H 06/19/22 03:42 POC Glucose 271 mg/dL (70-110) H 06/20/22 12:15 Estimat Average Glucose 209 06/16/22 04:18 Hemoglobin A1c 8.9 % (4.0-6.0) H 06/16/22 04:18 Calculated Osmolality 294 mOsm/kg (285-295) 06/19/22 03:42 Lactic Acid 2.3 mmol/L (0.5-2.2) H 06/14/22 09:15 Lactic Acid (Sepsis) 1.7 mmol/L (0.5-2.2) 06/14/22 11:25 Calcium 8.0 mg/dL (8.5-10.5) L 06/19/22 03:42 Magnesium 2.1 mg/dL (1.7-2.3) 06/15/22 05:06 Iron 19 ug/dL (59-158) L 06/18/22 05:00 TIBC 86 mcg/dl 06/18/22 05:00 % Saturation 22.0 % (20-50) 06/18/22 05:00 Unsat Iron Binding 67 ug/dL (112-347) L 06/18/22 05:00 Total Bilirubin 0.6 mg/dL (0.15-1.2) 06/19/22 03:42 AST 36 U/L (0-40) 06/19/22 03:42 ALT 12 U/L (0-41) 06/19/22 03:42 Alkaline Phosphatase 125 U/L (40-130) 06/19/22 03:42 Creatine Kinase 322 U/L (39-308) H* 06/18/22 05:00 CK-MB (CK-2) 9.6 ng/mL (0-10.4) 06/14/22 09:15 CK-MB (CK-2) Rel Index 1.5 % (0.0-5.3) 06/14/22 09:15 Troponin T Baseline 89 ng/L (0-15) H 06/16/22 09:43 Troponin T 120 Minute 82.24 ng/L (0-15) H 06/16/22 11:12 Delta Troponin T -6.76 ABS# (0-10) L 06/16/22 11:12 Troponin T Hi Sens 6Hr 74.35 ng/L (0-15) H 06/16/22 15:55 Troponin T Hi Sens 6Hr Delta -14.65 ng/L (0-12) L 06/16/22 15:55 Total Protein 5.6 g/dL (6.6-8.7) L 06/19/22 03:42 Albumin 2.4 g/dL (3.5-5.2) L 06/19/22 03:42 Globulin 3.2 g/dL (1.3-4.6) 06/19/22 03:42 Triglycerides 87 mg/dL (0-150) 06/19/22 03:42 Cholesterol 80 mg/dL (0-200) 06/19/22 03:42 LDL Cholesterol, Calc 35 mg/dL (50-129) L 06/19/22 03:42 Total VLDL Cholesterol 17 mg/dL (0-30) 06/19/22 03:42 HDL Cholesterol 28 mg/dL (60-100) L 06/19/22 03:42 Cholesterol/HDL Ratio 2.86 mg/dL (1.0-5.00) 06/19/22 03:42 Folate 17.3 ng/mL (4.5-32.2) 06/18/22 05:00 TSH 2.27 uIU/mL (0.27-4.20) 06/18/22 05:00 Urine Color Yellow (Yellow) 06/14/22 09:15 Urine Appearance Cloudy (CLEAR) A 06/14/22 09:15 Urine pH 9 (5-7) H 06/14/22 09:15 Ur Specific [place] 1.010 (1.005-1.030) 06/14/22 09:15 Urine Protein 2+ (Negative) H 06/14/22 09:15 Urine Glucose (UA) Norm (Normal) 06/14/22 09:15 Urine Ketones 1+ (Negative) H 06/14/22 09:15 Urine Blood 3+ (Negative) H 06/14/22 09:15 Urine Nitrate Negative (Negative) 06/14/22 09:15 Urine Bilirubin Neg (Negative) 06/14/22 09:15 Prot Sulfosalicylic Acd Positive (Negative) 06/14/22 09:15 Urine Urobilinogen Neg mg/dL (Negative) 06/14/22 09:15 Ur Leukocyte Esterase 2+ (Negative) H 06/14/22 09:15 Urine RBC >100 /hpf (0-2) H 06/14/22 09:15 Urine WBC >100 /hpf (0-5) H 06/14/22 09:15 Ur Squamous Epith Cells 0-4 /hpf (0-5) H 06/14/22 09:15 Triple Phos Crystals 5-10 /hpf H 06/14/22 09:15 Amorphous Sediment Not Reportable 06/14/22 09:15 Urine Bacteria 4+ /hpf (NONE) H 06/14/22 09:15 Urine Mucus 3+ /hpf 06/14/22 09:15 Vitals Last Vital Signs Temp 97.5 F L 06/20/22 12:00 Pulse 71 06/20/22 12:00 Resp 16 06/20/22 12:00 BP 143/64 06/20/22 12:00 Pulse Ox 99 06/20/22 12:00 O2 Del Method Room Air 06/20/22 12:00 O2 Flow Rate 6 06/17/22 20:00 Discharge Plan Discharge Patient Disposition: Xfer SNF Condition: Stable Prescriptions: New aspirin 81 mg Tablet,Delayed Release (Dr/Ec) 81 mg PO DAILY Qty: 30 0RF polysaccharide iron complex [Ferrex 150] 150 mg iron Capsule 150 mg PO BIDWM Qty: 60 0RF famotidine 20 mg Tablet 20 mg PO BID Qty: 60 0RF levofloxacin 500 mg tablet 500 mg PO Q24H 5 Days Qty: 5 0RF Continued amlodipine 10 mg tablet 10 mg PO DAILY Qty: 30 0RF cholecalciferol (vitamin D3) [Vitamin D3] 25 mcg (1,000 unit) Tablet 25 mcg PO DAILY Multivitamin 50 Plus Tablet 1 tab PO DAILY atorvastatin 20 mg tablet 20 mg PO DAILY Humulin N NPH U-100 Insulin 100 unit/mL suspension 20 unit SUBCUT BID Changed lisinopril 20 mg tablet 10 mg PO DAILY Qty: 90 1RF metoprolol succinate 25 mg tablet extended release 24 hr 50 mg PO DAILY Qty: 90 1RF tamsulosin 0.4 mg capsule 0.4 mg PO BIDWM Qty: 30 0RF Discharge Orders: Discharge Order (Routine); Ordered 06/20/22 Ordered By: Srinivasan Mcgill Referrals: Carlos Nagy MD [Primary Care Provider] - 1 week David Cassidy MD [Physician] - 2 weeks Discharge Diet: As Directed, Cardiac and Diabetic Discharge Activity: Resume usual activity and Increase activity as tolerated Patient Instructions: Opioid Safety Activity Restrictions/Additional Instructions: Dysphagia level 6 diet. Please follow-up with orthopedics at [facility]. You will be on Levaquin which is antibiotic for next 5 days for UTI. Please follow-up with Dr. Cassidy in his office for voiding trial in 2 weeks. If Aggarwal catheter remains in for more than 1 month it should be replaced. Discharge Attestations Time Spent in Discharge Care*: greater than 30 min Specific Discharge Activities: educating patient, discussing with pcp/other providers, discussing with case picker/social workers/dc planners, documenting/other paperwork and evaluating patient/reviewing data Status at Discharge: Cognitive status at discharge: cognitively intact, Behavioral status at discharge: cooperative, Quality Metrics Clinical Quality Measures [ No reported AMI, CVA or VTE this stay] Coding Level of Care Code 61127 Total time (in minutes) for Discharge: 50 Diagnoses Subcapital fracture of right hip S72.011A
[2022-06-20 14:31] LABS: SARS Covid-2 Antigen negative (Negative)
--- NOTE | 2022-06-20 14:45 | PC.NURSE ---
attempted to call report to [facility]. Nurse was unavailable, call back information left with medical office receptionist assistant, and notified that ready transport would be here in approx. 15 minutes.
--- NOTE | 2022-06-20 15:01 | PC.NURSE ---
patient wheeled to main entrance and loaded into wheelchair van.
--- NOTE | 2022-06-20 15:18 | PC.NURSE ---
called [facility] to inform of follow up appt with Dr. Evans
--- NOTE | 2022-06-20 15:29 | PC.NURSE ---
Report called to Rianna MANN at [facility]
== END 2022-06-20 15:00 | disposition skilled nursing facility (03) | DRG 956 ==
LOC: ER 09:58 → MEDSURG 14:11
PROVIDERS: Family Medicine; Physician Assistant; Specialist; Admitting Provider Internal Medicine; Emergency Provider Family Medicine; PCP Family Medicine; Visit Provider Student in an Organized Health Care Education/Training Program
PROC: 0SRR0JZ Replacement of Right Hip Joint, Femoral Surface with Synthetic Substitute, Open Approach (ICD-10-PCS; CPT 27125; principal; 2022-06-15 13:20)
DX: S72.011A Unspecified intracapsular fracture of right femur, initial encounter for closed fracture (principal); S32.591A Other specified fracture of right pubis, initial encounter for closed fracture; I21.A1 Myocardial infarction type 2; I48.20 Chronic atrial fibrillation, unspecified; N39.0 Urinary tract infection, site not specified; M62.82 Rhabdomyolysis; N17.9 Acute kidney failure, unspecified; W18.30XA Fall on same level, unspecified, initial encounter; Z66 Do not resuscitate; B96.4 Proteus (mirabilis) (morganii) as the cause of diseases classified elsewhere; N40.1 Benign prostatic hyperplasia with lower urinary tract symptoms; R33.8 Other retention of urine; R13.10 Dysphagia, unspecified; Z79.4 Long term (current) use of insulin; E11.22 Type 2 diabetes mellitus with diabetic chronic kidney disease; I12.9 Hypertensive chronic kidney disease with stage 1 through stage 4 chronic kidney disease, or unspecified chronic kidney disease; E11.51 Type 2 diabetes mellitus with diabetic peripheral angiopathy without gangrene; E11.40 Type 2 diabetes mellitus with diabetic neuropathy, unspecified; N18.9 Chronic kidney disease, unspecified; H54.40 Blindness, one eye, unspecified eye; I25.10 Atherosclerotic heart disease of native coronary artery without angina pectoris; Z95.1 Presence of aortocoronary bypass graft; Z86.73 Personal history of transient ischemic attack (TIA), and cerebral infarction without residual deficits; M19.90 Unspecified osteoarthritis, unspecified site; Z89.411 Acquired absence of right great toe; E87.5 Hyperkalemia
CPT/HCPCS: 36415; 36416; 51702; 70450; 71045; 72125; 72170; 73502; 73562; 74176; 80048; 80053; 80061; 81001; 82550; 82553; 82746; 82962; 83036; 83540; 83550; 83605; 83735; 84443; 84484; 85025; 87040; 87077; 87086; 87186; 87426; 92523; 92610; 93005; 96365; 96372; 96375; 97110; 97161; 97165; 97530; 97535; 99291; 99292; C1776; J0131; J0690; J0692; J0696; J1170; J1644; J1815; J2270; J2405; J2704; J2710; J3010; J3370; J3490; J7030; J7040